=== PATIENT | female | born 1950 | race Caucasian/White ===

== ENCOUNTER 2020-08-07 15:24 | Outpatient (REF) | payer MEDICARE, SELFPAY ==
[2020-08-07 17:24] LABS: CDIFF Ag Negative (Negative)
[2020-08-07 17:25] LABS: CDIFF Internal ctrl Dots and bkg OK (V); CDiff Toxin Negative (Negative)
[2020-08-07 18:49] LABS: Leukocytes Stool Qualitative NEGATIVE (NEGATIVE)
== END 2020-08-07 15:25 | disposition home or self-care (01) ==
LOC: HO.LNP 15:24
PROVIDERS: Visit Provider Internal Medicine
DX: R19.7 Diarrhea, unspecified (principal)
CPT/HCPCS: 87045; 87046; 87324; 87449; 89055

== ENCOUNTER 2022-11-09 14:55 | Outpatient (AMB) | payer MEDICARE, SELFPAY ==
--- NOTE | 2022-11-09 14:59 | AM.OFFVISMDC ---
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 Accompanied by: Self / Same As Patient Allergies No Known Allergies Allergy (Verified 11/09/22 15:00) Medication List - Last Reconciled 11/09/22 by Yodit Neff MD atenolol 25 mg PO DAILY fenofibrate 160 mg PO DAILY 90 days ibuprofen (Advil) 400 mg PO Q8H [Left KNEE BRACE As directed] lorazepam 0.75 mg (1.5 x 0.5 mg) PO DAILY PRN 90 days weopqvzcojbn-ugjmyheo-doemlg 1 tab PO DAILY simvastatin 10 mg PO DAILY Do you need a note to return to daycare/school/sports/work: No HPI [facility] G0439 HPI Details 72-year-old obese female with hypertension impaired glucose tolerance knee osteoarthritis hypercholesterolemia generalized anxiety disorder and urge incontinence coming in for subsequent annual visit. Patient has refused colonoscopy due for mammogram and bone density [facility] Medical History (Updated 11/09/22 @ 15:48 by Yodit Neff MD) Hypercholesterolemia Hypertension Knee osteoarthritis Obesity Surgical History History of appendectomy History of breast lump/mass excision History of laparoscopic cholecystectomy History of umbilical hernia repair Family History Father Stomach cancer Mother No problems noted. Social History (Updated 11/07/21 @ 12:55 by Yodit Neff MD) Housing: House Alcohol intake: never Patient Tobacco Use Status: Former Tobacco user Tobacco use type: Cigarette Years Smoked: quit 1979 e-Cigarette/Vaping Use: Never Used Second Hand Smoke Exposure: No Current occupational status: retired Cognitive needs: No Hearing needs: No Vision needs: Yes Questionnaire Medicare Wellness Checkup [age] What gender do you identify with?: female During the past 4 weeks, how much have you been bothered by emotional problems such as feeling anxious, depressed, irritable, sad or downhearted, and blue?: not at all During the past 4 weeks, has your physical & emotional health limited your social activities with family, friends, neighbors, or groups?: not at all During the past 4 weeks, how much bodily pain have you generally had?: mild pain (knee pain) During the past 4 weeks, was someone available to help you if you needed & wanted help?: yes, as much as I wanted During the past 4 weeks, what was the hardest physical activity you could do for at least 2 minutes?: very heavy Can you get to places out of walking distance without help? (For eg., can you travel alone on buses, taxis or drive your car?): Yes Can you go shopping for groceries or clothes without someone's help?: Yes Can you prepare your own meals?: Yes Can you do your housework without help?: Yes Because of any health problems, do you need the help of another person with your personal care needs such as eating, bathing, dressing or getting around the house?: No Can you handle your own money without help?: Yes During the past 4 weeks, how would you rate your health in general?: excellent During the past 4 weeks how have things been going for you?: very well; could hardly better Are you having difficulties driving your car?: no Do you always fasten your seat belt when you are in a car?: yes, usually During past 4 weeks, have you been bothered by the following: never: Falling or dizzy when standing up, Sexual problems?, Trouble eating well?, Teeth or denture problems?, Problems using the telephone? and Tiredness or fatigue? Have you fallen 2 or more times in the past year?: No Are you afraid of falling?: Yes Are you a smoker?: no During the past 4 weeks, how many drinks of wine, beer, or other alcoholic beverages did you have?: no alcohol at all Do you exercise for about 20 minutes 3 or more times a week?: yes, some of the time Have you been given information to help with the following?: yes: Hazards in your house that might hurt you? and yes: Keeping track of your medications? How often do you have trouble taking medicines the way you have been told to take them?: I always take medicine as prescribed How confident are you that you can control & manage most of your health problems?: very confident What is your race?: White PHQ-9 Over the last 2 weeks, how often have you been bothered by any of the following problems? 1. Little interest or pleasure in doing things: not at all 2. Feeling down, depressed, or hopeless: not at all 3. Trouble falling or staying asleep, or sleeping too much: not at all 4. Feeling tired or having little energy: not at all 5. Poor appetite or overeating: not at all 6. Feeling bad about yourself - or that you are a failure or have let yourself or your family down: not at all 7. Trouble concentrating on things, such as reading the newspaper or watching television: not at all 8. Moving or speaking so slowly that other people could have noticed. Or the opposite - being so fidgety or restless that you have been moving around a lot more than usual: not at all 9. Thoughts that you would be better off or of hurting yourself in some way: not at all Total score: 0 Depression Screening Interpretation: Negative Source: Developed by Drs. Regis Holliday, Cristela Velásquez, Solomon Villalobos and colleagues, with an educational jung from [employer]. PHQ-2/PHQ-9 PHQ-2 Over the last 2 weeks, how often have you been bothered by any of the following problems? 1. Little interest or pleasure in doing things: not at all 2. Feeling down, depressed, or hopeless: not at all Total score: 0 If score is 3 or greater, continue 3. Trouble falling or staying asleep, or sleeping too much: not at all 4. Feeling tired or having little energy: not at all 5. Poor appetite or overeating: not at all 6. Feeling bad about yourself - or that you are a failure or have let yourself or your family down: not at all 7. Trouble concentrating on things, such as reading the newspaper or watching television: not at all 8. Moving or speaking so slowly that other people could have noticed. Or the opposite - being so fidgety or restless that you have been moving around a lot more than usual: not at all 9. Thoughts that you would be better off or of hurting yourself in some way: not at all Total score: 0 0-4 None-Minimal, 5-9 Mild, 10-14 Moderate, 15-19 Moderately Severe, 20-27 Severe Source: Developed by Drs. Regis Holliday, Cristela Velásquez, Solomon Villalobos and colleagues, with an educational jung from [employer]. Thrive Questionnaire Date Thrive assessed: 11/09/22 I am a: Patient What is your living situation today?: I have a steady place to live Within the past 12 months, did the food you bought not last and you didn't have the money to get more?: Never true Within the past 12 months, did you worry whether your food would run out before you got money to buy more?: Never true Do you have trouble paying for medicines?: No Do you have trouble getting transportation to medical appointments?: No Do you have trouble paying your heating and electricity bill?: No Do you have trouble taking care of your child, family member or friend?: No Do you have trouble with day-to-day activities such as bathing, preparing meals, shopping, managing finances, etc.?: No Are you currently unemployed and looking for a job?: No Are you interested in more education?: No Please select the resources that you would like help with: None Currently or been in a relationship where the following occur: no concerns reported JACKIE-7 AMB Questionnaire JACKIE-7 Date JACKIE - 7 assessed: 11/09/22 Feeling nervous, anxious, or on edge: 0 = Not at all Not being able to stop or control worryin = Not at all Worrying too much about different things: 0 = Not at all Trouble relaxin = Not at all Being so restless that it is hard to sit still: 0 = Not at all Becoming easily annoyed or irritable: 0 = Not at all Feeling afraid as if something awful might happen: 0 = Not at all Total JACKIE-7 score (0-4 normal; 5-9 mild; 10-14 moderate; 15-21 severe): 0 Source: Developed by Drs. Regis Holliday, Cristela Velásquez, Solomon Villalobos and colleagues, with an educational jung from [employer]. Review of Systems Const Denies poor appetite and Denies weakness Eyes Denies no additional complaints ENT Reports Normal hearing present Card Denies chest pain, Denies syncope, Denies rapid heart rate and Denies dyspnea Resp Denies cough and Denies dyspnea GI Denies change in stool character, Reports constipation, Denies diarrhea, Denies nausea and Denies vomiting Denies urinary frequency, Denies difficulty voiding and Denies dysuria Neuro Reports Normal hearing present, Denies confusion, Denies syncope and Denies weakness Psych Denies confusion Physical Exam Vital Signs: Last Vital Signs Pulse 62 11/09/22 15:00 BP 130/62 11/09/22 15:00 Pulse Ox 98 11/09/22 15:00 Oxygen Delivery Method Room Air 11/09/22 15:00 BMI result Body Mass Index 43.6 Const General: alert and awake; No confusion Orientation/consciousness: No confusion HEENT Head: Yes normocephalic Ears: external ears normal and TM's normal bilaterally Face and sinus: Yes normal facial exam Mouth: moist mucous membranes Throat: Yes tonsils normal Eyes Conjunctivae: conjunctivae normal Pupils: Equal, round and reactive pupils present and Pupil accommodation reflex normal Direct Ophthalmoscopy: normal light reflex Neck Neck: No lymphadenopathy Thyroid: Thyroid normal Chest Chest palpation & inspection: normal inspection of the chest Resp Effort & Inspection: normal respiratory effort and no audible wheezes Auscultation: clear to auscultation bilaterally, no crackles, no wheezes and lung sounds not diminished Cardio Rate: regular rate Rhythm: regular rhythm Peripheral pulses: radial pulses present and dorsalis pedis present GI Palpation (GI): no masses Auscultation: normal bowel sounds and normoactive bowel sounds Rectal Exam - Female: deferred Skin General skin exam: no rashes or lesions noted Rashes: no rashes Neuro General: deep tendon reflexes 2+ bilaterally and No confusion Cranial nerves: Yes Equal, round and reactive pupils present, Yes Midline tongue present, Yes Normal hearing present and Yes Ability to bilaterally elevate shoulders present Cognition (Neuro): normal cognition Gait exam (Neuro): Normal gait present Motor exam (neuro): 5/5 motor strength present throughout Deep tendon reflexes (DTR's): Right brachioradialis reflex intensity grade: 2+, Left brachioradialis reflex intensity grade: 2+, Right patellar reflex intensity grade: 2+ and Left patellar reflex intensity grade: 2+ Extrem General: No edema Assessment & Plan Assessment & Plan (1) Medicare annual wellness visit, subsequent: Code(s): Z00.00 - Encounter for general adult medical examination without abnormal findings (2) Hypertension: Code(s): I10 - Essential (primary) hypertension Plan: Continue with blood pressure medication. Decrease salt intake and exercise patient on atenolol 25 mg once a day (3) Hypercholesterolemia: Code(s): E78.00 - Pure hypercholesterolemia, unspecified Plan: Avoid fried foods, chicken skin, eggs, butter margarine, pastries and meat. Be it pork or beef they have a lot of cholesterol LDL goal of less than 130 and triglyceride of less than 150 patient is on simvastatin 10 mg once a day and fenofibrate (4) Obesity: Code(s): E66.9 - Obesity, unspecified Plan: Diet and exercise (5) Impaired glucose tolerance: Code(s): R73.02 - Impaired glucose tolerance (oral) Plan: Decrease the amount of carbohydrate intake, pasta, bread, rice and potatoes are all sugar and that is aside from all the sweet stuff, remember that fruits are good but they are Sweet also. (6) Generalized anxiety disorder: Comment: Decline any referral for counseling Code(s): F41.1 - Generalized anxiety disorder Plan: Continue with medication and counseling (7) Colon cancer screening: Code(s): Z12.11 - Encounter for screening for malignant neoplasm of colon Orders: Orders Hemoglobin A1c Today R73.02 - Impaired glucose tolerance (oral) Comprehensive Met. Panel Today R73.02 - Impaired glucose tolerance (oral) Lipid Panel Today E78.00 - Pure hypercholesterolemia, unspecified Thyroid Stimulating Hormone Today E78.00 - Pure hypercholesterolemia, unspecified Free T4 (Free Thyroxine) Today E78.00 - Pure hypercholesterolemia, unspecified Complete Blood Count Auto Diff Today E78.00 - Pure hypercholesterolemia, unspecified Vitamin B12 and Folate Today E78.00 - Pure hypercholesterolemia, unspecified Vitamin D 25-OH Total Today E78.00 - Pure hypercholesterolemia, unspecified Referrals Cologuard Test Z12.11 - Encounter for screening for malignant neoplasm of colon Medications: New [QUAD CANE] As directed 1 ea 0RF M17.10 - Unilateral primary osteoarthritis, unspecified knee Refilled fenofibrate 160 mg PO DAILY 90 days 90 tabs 3RF E78.00 - Pure hypercholesterolemia, unspecified Quality Reporting (2019) Depression/Bipolar (159/160/161/177) PHQ-9: Total score: 0 Coding Level of Care Code Medicare Subsequent (G0439) Diagnoses Medicare annual wellness visit, subsequent Z00.00 Hypertension I10 Hypercholesterolemia E78.00 Obesity E66.9 Impaired glucose tolerance R73.02 Generalized anxiety disorder F41.1 Colon cancer screening Z12.11
[2022-11-09 15:00] VITALS: BP 130/62; PULSE 62; O2SAT 98; BMI 43.6
== END 2022-11-09 15:55 | disposition home or self-care (01) ==
PROVIDERS: Visit Provider Internal Medicine
DX: Z00.00 Encounter for general adult medical examination without abnormal findings (principal); I10 Essential (primary) hypertension; E66.9 Obesity, unspecified; Z68.41 Body mass index [BMI] 40.0-44.9, adult; E78.00 Pure hypercholesterolemia, unspecified; R73.02 Impaired glucose tolerance (oral); F41.1 Generalized anxiety disorder; Z12.11 Encounter for screening for malignant neoplasm of colon
CPT/HCPCS: G0439

== ENCOUNTER 2023-02-10 12:13 | Outpatient (REF) | payer MEDICARE, SELFPAY | END 2023-02-10 12:14 | disposition home or self-care (01) | LOC: HO.HOSX 12:13 | PROVIDERS: Visit Provider Orthopaedic Surgery | DX: Z13.89 Encounter for screening for other disorder (principal) ==

== ENCOUNTER 2023-02-11 07:52 | Outpatient (REF) | payer MEDICARE, SELFPAY ==
--- NOTE | ~2023-02-11 | XR_ITS ---
EXAMINATION: XR KNEE, RIGHT CLINICAL INFORMATION: Pain. COMPARISON: None available. TECHNIQUE: AP, lateral and sunrise views of the right knee are submitted. FINDINGS: Bony alignment and mineralization are normal. There is marked asymmetric narrowing medial joint space compartment. The lateral and patellofemoral joint space compartments are well-maintained. There is tricompartment peripheral osteophyte formation. No fracture, dislocation or significant joint effusion is seen. There is no significant varus or valgus configuration. There is no foreign body. There are atherosclerotic calcifications. XR/XR knee RT 3V IMPRESSION: 1. There is tricompartment osteoarthritic change of the right knee, most pronounced of the medial joint space compartment, where it is severe. 2. No fracture, dislocation or significant joint effusion is seen.
== END 2023-02-11 07:53 | disposition home or self-care (01) ==
LOC: HO.HOSX 07:52
PROVIDERS: Visit Provider Orthopaedic Surgery
DX: M17.11 Unilateral primary osteoarthritis, right knee (principal); Z79.899 Other long term (current) drug therapy
CPT/HCPCS: 20610; 73562; 99202; J3301

== ENCOUNTER 2023-02-11 08:51 | Outpatient (AMB) | payer MEDICARE, SELFPAY ==
--- NOTE | 2023-02-11 09:07 | A.OFFVIS_ITS ---
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 She describes her pain as sharp and severe in nature, 01/26. Her pain has gotten worse over the last few years in spite of continued non operative treatments. She has had injections in the past which gave her only temporary relief. She states that her right knee will give out several times per day. She does walk with a cane. She has tried Tylenol and anti- inflammatory medicines which gave her minimal relief. She has also done physical therapy for 12 weeks over the last 6 months which aggravated her pain. Allergies No Known Allergies Allergy (Verified 02/11/23 09:10) Medication List - Last Reconciled 02/11/23 by Joni Weir MD atenolol 25 mg PO DAILY fenofibrate 160 mg PO DAILY 90 days ibuprofen (Advil) 400 mg PO Q8H [Left KNEE BRACE As directed] lorazepam 0.75 mg (1.5 x 0.5 mg) PO DAILY PRN 90 days gzubyvvxgaau-jnykbscg-iqpafq 1 tab PO DAILY [QUAD CANE As directed] simvastatin 10 mg PO DAILY PFSH Medical History (Updated 02/11/23 @ 10:06 by Joni Weir MD) Knee osteoarthritis Obesity Hypercholesterolemia Hypertension Surgical History History of appendectomy History of breast lump/mass excision History of laparoscopic cholecystectomy History of umbilical hernia repair Family History Father Stomach cancer Mother No problems noted. Social History (Updated 02/11/23 @ 09:10 by SARAH Damon) Housing: House Alcohol intake: never Patient Tobacco Use Status: Former Tobacco user Tobacco use type: Cigarette Years Smoked: quit 1979 e-Cigarette/Vaping Use: Never Used Second Hand Smoke Exposure: No Current occupational status: retired Current occupation: rt hand Cognitive needs: No Hearing needs: No Vision needs: Yes Physical Exam Vital Signs: BMI result Body Mass Index 43.5 Const Other: Well-nourished well-developed very friendly female awake alert and oriented x3 in no acute distress Extrem Other: Bilateral lower extremity examination shows good capillary refill, no skin lesions noted, normal sensation light touch Right knee examination shows a minimal effusion, palpable crepitus with range of motion, pain with range of motion, range of motion from -3 degrees to 115 degrees, no instability Office Procedures Joint Injection/Drain Joint Injection/Drain Primary Site: right knee Prep: site was prepped using aseptic technique Injected: 40 mg of, Kenalog and 1% plain lidocaine Procedure: The patient tolerated the procedure well Coding - Large joint Procedure code (CPT) selection complete Results Reviewed Results Reviewed: 02/11/23 09:42 Lidocaine HCl 2 % MPF [Xylocaine 2 % MPF] 5 ml .ROUTE .STK-MED ONE Triamcinolone Acetonide [Kenalog-40] 40 mg .ROUTE .STK-MED ONE X-rays of the patient's right knee show severe joint space narrowing with grade 4 eotf-bn-ensl arthritis, subchondral sclerosis, osteophyte formation, no acute bony abnormalities Assessment & Plan Assessment & Plan (1) Arthritis of right knee: Code(s): M17.11 - Unilateral primary osteoarthritis, right knee Plan: Mrs. Bartlett presents with progressively worsening right knee pain due to degenerative joint disease. I had a lengthy discussion with the patient regarding the treatment options. The risks and benefits of a cortisone injection were discussed at length with the patient. The patient wished to proceed. She tolerated the injection well. She was also fitted with a knee brace to help with her symptoms of instability. I do feel that the knee brace is a medical necessity to help prevent falls. I will see the patient back in 3 months time for repeat clinical examination. If she fails continued non operative treatments we will further discuss the risks and benefits of right total knee replacement surgery. Feel free to call me at any time should questions regarding her orthopedic management arise. Thank you very much for asking me to see this very friendly patient. I spent 22 minutes in reviewing the patient's records and imaging studies, seeing the patient and documenting in the medical record. Orders: Orders AMB Joint Injection/Aspiration Today M17.11 - Unilateral primary osteoarthritis, right knee XR knee RT 3V Today M25.561 - Pain in right knee Coding Level of Care Code New Pt Level 2 (80548) Diagnoses Arthritis of right knee M17.11 CPT Codes Coding - Large joint: 30259 - Large joint ([id number])
[2023-02-11 09:08] VITALS: BMI 43.5
== END 2023-02-11 10:06 | disposition home or self-care (01) ==
PROVIDERS: PCP Internal Medicine; Visit Provider Orthopaedic Surgery
DX: M17.11 Unilateral primary osteoarthritis, right knee (principal)
CPT/HCPCS: 20610; 99204

== ENCOUNTER 2023-05-12 10:27 | Outpatient (AMB) | payer MEDICARE, SELFPAY ==
--- NOTE | 2023-05-12 10:28 | A.OFFPC_ITS ---
Intake Visit Reasons: anxiety, cholesterol/[phone] Allergies No Known Allergies Allergy (Verified 02/11/23 09:10) Medication List - Last Reconciled 05/12/23 by Yodit Neff MD atenolol 25 mg PO DAILY fenofibrate 160 mg PO DAILY 90 days ibuprofen (Advil) 400 mg PO Q8H [Left KNEE BRACE As directed] lorazepam 0.75 mg (1.5 x 0.5 mg) PO DAILY PRN 90 days jgrxyugzfhwh-esktlqna-xeutgy 1 tab PO DAILY [QUAD CANE As directed] simvastatin 10 mg PO DAILY Tobacco use date assessed: 05/12/23 Fall risk assessment: No Falls in past year Last assessed Fall Risk: 05/12/23 Dental Screening Dental Screen Date: 05/12/23 Did you have a dental visit in the last 12 months?: Yes Did you have a dental problem in the last 6 months where you did not have access to dental care?: No Was dental information given to patient?: Patient has dentist HPI anxiety, cholesterol/[phone] HPI Details 73-year-old obese female with hypertensi on hypercholesterolemia impaired glucose tolerance and generalized anxiety disorder last seen in October 2022. Patient declined colonoscopy mammogram is due bone density is up-to-date. Review of the notes has seen Orthopedics for the. right knee pain patient to had an injection done 02/11/2023 fitted with a knee brace. R knee replacement 07/26/2023. Dr. Weir will get shot next week. [facility] Medical History (Updated 02/11/23 @ 10:06 by Joni Weir MD) Knee osteoarthritis Obesity Hypercholesterolemia Hypertension Surgical History History of appendectomy History of breast lump/mass excision History of laparoscopic cholecystectomy History of umbilical hernia repair Family History (Updated 05/12/23 @ 10:29 by Shellie Vogt CMA) Father Stomach cancer Mother No problems noted. Social History (Updated 02/11/23 @ 09:10 by Ade Darby [facility]) Housing: House Alcohol intake: never Patient Tobacco Use Status: Former Tobacco user Tobacco use type: Cigarette Years Smoked: quit 1979 e-Cigarette/Vaping Use: Never Used Second Hand Smoke Exposure: No Current occupational status: retired Current occupation: rt hand Cognitive needs: No Hearing needs: No Vision needs: Yes Questionnaire PHQ-9 Over the last 2 weeks, how often have you been bothered by any of the following problems? 1. Little interest or pleasure in doing things: not at all 2. Feeling down, depressed, or hopeless: not at all 3. Trouble falling or staying asleep, or sleeping too much: not at all 4. Feeling tired or having little energy: not at all 5. Poor appetite or overeating: not at all 6. Feeling bad about yourself - or that you are a failure or have let yourself or your family down: not at all 7. Trouble concentrating on things, such as reading the newspaper or watching television: not at all 8. Moving or speaking so slowly that other people could have noticed. Or the opposite - being so fidgety or restless that you have been moving around a lot more than usual: not at all 9. Thoughts that you would be better off or of hurting yourself in some wa y: not at all Total score: 0 Depression Screening Interpretation: Negative Depression Screening Done: Yes Source: Developed by Drs. Regis Holliday, Cristela Velásquez, Solomon Villalobos and colleagues, with an educational jung from [employer]. Thrive Questionnaire Date Thrive assessed: 05/12/23 I am a: Patient What is your living situation today?: I have a steady place to live Within the past 12 months, did the food you bought not last and you didn't have the money to get more?: Never true Within the past 12 months, did you worry whether your food would run out before you got money to buy more?: Never true Do you have trouble paying for medicines?: No Do you have trouble getting transportation to medical appointments?: No Do you have trouble paying your heating and electricity bill?: No Do you have trouble taking care of your child, family member or friend?: No Do you have trouble with day-to-day activities such as bathing, preparing meals, shopping, managing finances, etc.?: No Are you currently unemployed and looking for a job?: No Are you interested in more education?: No Please select the resources that you would like help with: None Currently or been in a relationship where the following occur: no concerns reported THRIVE Score: 0 AUDIT C Alcohol Use Questionnaire (AUDIT-C) 1. How often do you have a drink containing alcohol?: Never 3. How often do you have six or more drinks on one occasion?: Never Total Score: 0 JACKIE-7 AMB Questionnaire JACKIE-7 Date JACKIE - 7 assessed: 05/12/23 Feeling nervous, anxious, or on edge: 0 = Not at all Not being able to stop or control worryin = Not at all Worrying too much about different things: 0 = Not at all Trouble relaxin = Not at all Being so restless that it is hard to sit still: 0 = Not at all Becoming easily annoyed or irritable: 0 = Not at all Feeling afraid as if something awful might happen: 0 = Not at all Total JACKIE-7 score (0-4 normal; 5-9 mild; 10-14 moderate; 15-21 severe): 0 Source: Developed by Drs. Regis Holliday, Cristela Velásquez, Solomon Villalobos and colleagues, with an educational jung from [employer]. Physical exam (Primary Care) Tobacco/Smoking Status: Tobacco use Status Tobacco use date assessed 05/12/23 05/12/23 10:29 Patient Tobacco Use Status Former Tobacco user 05/12/23 10:29 Tobacco use type Cigarette 05/12/23 10:29 e-Cigarette/Vaping Use Never Used 05/12/23 10:29 PHQ-9: PHQ-9 Score PHQ-9: Total score 0 05/12/23 10:29 Depression Screening Interpretation: Negative Thrive Assessment: Date of Thrive Assessment Date Thrive assessed 05/12/23 05/12/23 10:29 Currently or been in a relationship where the following occur: no concerns reported Telehealth Telehealth Location of provider rendering services: practice address Location of patient: address on file Patient Identification confirmed using: Name, : Yes Telehealth method: voice only (Android ) Patient verbally consented to treatment: Yes Patient verbally consented to billing insurance company: Yes Patient informed of any privacy concerns related to visit: Yes Minutes spent on Phone/Video with Pt.: 25 Assessment and Plan Assessment & Plan (1) Arthritis of right knee: Code(s): M17.11 - Unilateral primary osteoarthritis, right knee Plan: January 2023 seen Orthopedics had injections done (2) Hypertension: Code(s): I10 - Essential (primary) hypertension Plan: Continue with blood pressure medication. Decrease salt intake and exercise presently on atenolol 25 mg once a day (3) Hypercholesterolemia: Code(s): E78.00 - Pure hypercholesterolemia, unspecified Plan: Avoid fried foods, chicken skin, eggs, butter margarine, pastries and meat. Be it pork or beef they have a lot of cholesterol LDL goal of less than 130 and triglyceride of less than 150 patient on fenofibrate 160 mg once a day and simvastatin 10 mg once a day. Will need blood work (4) Obesity: Code(s): E66.9 - Obesity, unspecified Plan: Diet and exercise (5) Impaired glucose tolerance: Code(s): R73.02 - Impaired glucose tolerance (oral) Plan: Decrease the amount of carbohydrate intake, pasta, bread, rice and potatoes are all sugar and that is aside from all the sweet stuff, remember that fruits are good but they are Sweet also. (6) Generalized anxiety disorder: Comment: Decline any referral for counseling Code(s): F41.1 - Generalized anxiety disorder Plan: Continue with medication as needed. Coding Level of Care Code Tele Est Pt Level 4 (92822) Diagnoses Arthritis of right knee M17.11 Hypertension I10 Hypercholesterolemia E78.00 Obesity E66.9 Impaired glucose tolerance R73.02 Generalized anxiety disorder F41.1
== END 2023-05-12 12:03 | disposition home or self-care (01) ==
LOC: HO.HMGH 10:27
PROVIDERS: PCP Internal Medicine; Visit Provider Internal Medicine
DX: E78.00 Pure hypercholesterolemia, unspecified (principal); F41.1 Generalized anxiety disorder; M17.11 Unilateral primary osteoarthritis, right knee; I10 Essential (primary) hypertension; R73.02 Impaired glucose tolerance (oral)
CPT/HCPCS: 99443

== ENCOUNTER 2023-05-18 09:22 | Outpatient (AMB) | payer MEDICARE, SELFPAY ==
[2023-05-18 09:24] VITALS: BMI 43.5
--- NOTE | 2023-05-18 09:24 | MHC.OFFVIS ---
Intake Vital Signs 05/18/23 09:24 Height 5 ft 2 in Weight 238 lb BMI 43.5 Intake Visit Reasons: Bilateral knee pain Intake Note: Therese is a 73 year old female who presents with complaints of progressively worsening bilateral knee pains. The patient has had cortisone injections given into both of her knees. She has gotten relief from the left knee injections. At her last visit she was given a cortisone injection into her right knee which gave her minimal relief. The patient describes her pains as sharp and severe in nature. The patient has difficulty walking even short distances because of her pains. At this point her right knee pain is interfering with her activities of daily living and her ability to sleep well through the night. The patient is tentatively scheduled for right total knee replacement surgery in July. Allergies No Known Allergies Allergy (Verified 05/18/23 09:29) Medication List - Last Reconciled 05/18/23 by Joni Weir MD atenolol 25 mg PO DAILY fenofibrate 160 mg PO DAILY 90 days ibuprofen (Advil) 400 mg PO Q8H [Left KNEE BRACE As directed] lorazepam 0.75 mg (1.5 x 0.5 mg) PO DAILY PRN 90 days xylymmbwjafq-qorjgopd-puthev 1 tab PO DAILY [QUAD CANE As directed] simvastatin 10 mg PO DAILY PFSH Medical History Knee osteoarthritis Obesity Hypercholesterolemia Hypertension Surgical History History of breast lump/mass excision History of laparoscopic cholecystectomy History of umbilical hernia repair History of appendectomy Family History Father Stomach cancer Mother No problems noted. Social History Housing: House Alcohol intake: never Patient Tobacco Use Status: Former Tobacco user Tobacco use type: Cigarette Years Smoked: quit 1979 e-Cigarette/Vaping Use: Never Used Second Hand Smoke Exposure: No Current occupational status: retired Current occupation: rt hand Cognitive needs: No Hearing needs: No Vision needs: Yes Physical Exam Vital Signs: BMI result Body Mass Index 43.5 Const Other: Well-nourished well-developed very friendly female awake alert and oriented x3 in no acute distress Extrem Other: Bilateral lower extremity examination shows good capillary refill, no skin lesions noted, normal sensation light touch Bilateral knee examination shows minimal effusions, palpable crepitus with range of motion, pain with range of motion, range from -3 degrees to 115 degrees, no instability Office Procedures Joint Injection/Drain Joint Injection/Drain Primary Site: left knee Prep: site was prepped using aseptic technique Injected: 40 mg of, DepoMedrol and 1% plain lidocaine Procedure: The patient tolerated the procedure well Coding - Large joint Procedure code (CPT) selection complete Assessment & Plan Assessment & Plan (1) Arthritis of left knee: Code(s): M17.12 - Unilateral primary osteoarthritis, left knee (2) Arthritis of right knee: Code(s): M17.11 - Unilateral primary osteoarthritis, right knee (3) Pain in both knees: Code(s): M25.561 - Pain in right knee; M25.562 - Pain in left knee Plan Ms. Bartlett presents with bilateral knee pains due to degenerative joint disease. I had a lengthy discussion with the patient regarding the treatment options. The risks and benefits of a left knee cortisone injection were discussed at length with the patient. The patient wished to proceed. She tolerated the injection well. At this point the patient has failed continued non operative treatments for her right knee arthritis. The risks and benefits of right total knee replacement surgery were discussed at length with the patient. The patient wishes to proceed with surgery. She is scheduled to undergo surgery in July. I will see her back 1 week prior to her surgery to answer any final questions that she might have. Feel free to call me at any time should questions regarding her orthopedic management arise. I spent 22 minutes in reviewing the patient's records and imaging studies, seeing the patient and documenting in the medical record. Orders: Orders AMB Joint Injection/Aspiration Today M17.12 - Unilateral primary osteoarthritis, left knee Coding Level of Care Code Est Pt Level 2 (26136) Diagnoses Arthritis of left knee M17.12 Arthritis of right knee M17.11 Pain in both knees M25.561; M25.562 CPT Codes Coding - Large joint: 93193 - Large joint ([id number])
== END 2023-05-18 09:48 | disposition home or self-care (01) ==
PROVIDERS: PCP Internal Medicine; Visit Provider Orthopaedic Surgery
DX: M17.0 Bilateral primary osteoarthritis of knee (principal)
CPT/HCPCS: 20610; 99213

== ENCOUNTER → 2023-05-18 09:22 | Outpatient (BNVA) | payer MEDICARE, SELFPAY | PROVIDERS: PCP Internal Medicine; Visit Provider Orthopaedic Surgery | DX: M17.0 Bilateral primary osteoarthritis of knee (principal) | CPT/HCPCS: 20610; 99212; J1020 ==

== ENCOUNTER 2023-06-23 11:22 | Outpatient (AMB) | payer MEDICARE, SELFPAY ==
[2023-06-23 11:23] VITALS: BP 142/80; PULSE 85; O2SAT 95; BMI 44.1
--- NOTE | 2023-06-23 11:23 | MHC.PC.OV ---
Vital Signs 06/23/23 11:23 Height 5 ft 2 in Weight 241 lb BMI 44.1 BP 142/80 H Blood Pressure Location Lt brachial Position Sitting Pulse 85 Pulse Source Pulse Oximeter Pulse Oximetry (%) 95 Oxygen Delivery Method Room Air Intake Visit Reasons: RT TKA with Dr. Weir on 07/26/23 Allergies No Known Allergies Allergy (Verified 06/23/23 11:23) Medication List - Last Reconciled 06/23/23 by Yodit Neff MD atenolol 25 mg PO DAILY fenofibrate 160 mg PO DAILY 90 days ibuprofen (Advil) 400 mg PO Q8H [Left KNEE BRACE As directed] lorazepam 0.75 mg (1.5 x 0.5 mg) PO DAILY PRN 90 days jmzcyowmjjlh-igdlkpmp-axjghj 1 tab PO DAILY [QUAD CANE As directed] simvastatin 10 mg PO DAILY Tobacco use date assessed: 05/12/23 Fall risk assessment: No Falls in past year Last assessed Fall Risk: 06/23/23 Dental Screening Dental Screen Date: 06/23/23 Did you have a dental visit in the last 12 months?: Yes Did you have a dental problem in the last 6 months where you did not have access to dental care?: No Was dental information given to patient?: Patient has dentist HPI RT TKA with Dr. Weir on 07/26/23 HPI Details 73-year-old morbidly obese female with hypertension hypercholesterolemia impaired glucose tolerance generalized anxiety disorder last seen in April 2023. Patient has declined colonoscopy, mammogram is up-to-date bone density is up-to-date March 2022. The patient comes in for preoperative evaluation for a right total knee arthroplasty July 2023. [facility] Medical History (Updated 06/23/23 @ 11:35 by Yodit Neff MD) Right knee pain Colon cancer screening Frequency of micturition Obesity Hypercholesterolemia Hypertension Surgical History History of breast lump/mass excision History of laparoscopic cholecystectomy History of umbilical hernia repair History of appendectomy Family History Father Stomach cancer Mother No problems noted. Social History (Updated 06/23/23 @ 11:46 by Yodit Neff MD) Housing: House Alcohol intake: never Comment: glass of wine once Q 2 months Patient Tobacco Use Status: Former Tobacco user Tobacco use type: Cigarette Years Smoked: quit 1979 e-Cigarette/Vaping Use: Never Used Second Hand Smoke Exposure: No Current occupational status: retired Current occupation: rt hand Cognitive needs: No Hearing needs: No Vision needs: Yes Questionnaire PHQ-9 Over the last 2 weeks, how often have you been bothered by any of the following problems? 1. Little interest or pleasure in doing things: not at all 2. Feeling down, depressed, or hopeless: not at all 3. Trouble falling or staying asleep, or sleeping too much: not at all 4. Feeling tired or having little energy: not at all 5. Poor appetite or overeating: not at all 6. Feeling bad about yourself - or that you are a failure or have let yourself or your family down: not at all 7. Trouble concentrating on things, such as reading the newspaper or watching television: not at all 8. Moving or speaking so slowly that other people could have noticed. Or the opposite - being so fidgety or restless that you have been moving around a lot more than usual: not at all 9. Thoughts that you would be better off or of hurting yourself in some way: not at all Total score: 0 Depression Screening Interpretation: Negative Depression Screening Done: Yes Source: Developed by Drs. Regis Holliday, Cristela Velásquez, Solomon Villalobos and colleagues, with an educational jung from [employer]. Thrive Questionnaire Date Thrive assessed: 05/12/23 AUDIT C Alcohol Use Questionnaire (AUDIT-C) 1. How often do you have a drink containing alcohol?: Never 3. How often do you have six or more drinks on one occasion?: Never Total Score: 0 JACKIE-7 AMB Questionnaire JACKIE-7 Date JACKIE - 7 assessed: 05/12/23 Source: Developed by Drs. Regis Holliday, Cristela Velásquez, Solomon Villalobos and colleagues, with an educational jung from [employer]. Review of Systems Const Denies poor appetite and Denies weakness Eyes Denies no additional complaints ENT Reports Normal hearing present, Denies dizziness, Denies nasal congestion, Denies tinnitus and Denies sore throat Card Denies chest pain, Denies syncope, Denies rapid heart rate and Denies dyspnea Resp Denies cough and Denies dyspnea GI Denies change in stool character, Reports constipation, Denies diarrhea, Denies nausea and Denies vomiting Denies urinary frequency, Denies difficulty voiding and Denies dysuria Neuro Reports Normal hearing present, Denies confusion, Denies dizziness, Denies syncope and Denies weakness Psych Denies confusion Physical exam (Primary Care) Vital Signs: Last Vital Signs Pulse 85 06/23/23 11:23 BP 142/80 H 06/23/23 11:23 Pulse Ox 95 06/23/23 11:23 Oxygen Delivery Method Room Air 06/23/23 11:23 BMI result Body Mass Index 44.1 Tobacco/Smoking Status: Tobacco use Status Tobacco use date assessed 05/12/23 06/23/23 11:24 Patient Tobacco Use Status Former Tobacco user 06/23/23 11:24 Tobacco use type Cigarette 06/23/23 11:24 e-Cigarette/Vaping Use Never Used 06/23/23 11:24 PHQ-9: PHQ-9 Score PHQ-9: Total score 0 06/23/23 11:33 Depression Screening Interpretation: Negative Thrive Assessment: Date of Thrive Assessment Date Thrive assessed 05/12/23 06/23/23 11:24 Const General: No confusion Orientation/consciousness: No confusion Eyes Conjunctivae: conjunctivae normal Resp Auscultation: clear to auscultation bilaterally Cardio Rate: regular rate Rhythm: regular rhythm GI Inspection: Yes normal to inspection Neuro General: No confusion Cranial nerves: Yes Normal hearing present Extrem General: Yes normal to inspection and No edema Assessment and Plan Assessment & Plan (1) Preop exam for internal medicine: Code(s): Z01.818 - Encounter for other preprocedural examination Plan: Patient's blood work was done in [facility] today and awaiting results. EKG requested. Patient belongs to the intermediate risk group due to the age above 70. Await for the results. Discussed about aspirin and anti-inflammatories to hold 1 week before the procedure to prevent bleeding. Stressed importance of taking the blood pressure medication even on the day of the procedure. Advised to keep well hydrated (2) Arthritis of right knee: Code(s): M17.11 - Unilateral primary osteoarthritis, right knee Plan: Planned right total knee arthroplasty in 07/26/2023 (3) Hypertension: Code(s): I10 - Essential (primary) hypertension Plan: Continue with blood pressure medication. Decrease salt intake and exercise presently on atenolol 25 mg once a day (4) Hypercholesterolemia: Code(s): E78.00 - Pure hypercholesterolemia, unspecified Plan: Avoid fried foods, chicken skin, eggs, butter margarine, pastries and meat. Be it pork or beef they have a lot of cholesterol LDL goal of less than 130 and triglyceride of less than 150 (5) Obesity: Code(s): E66.9 - Obesity, unspecified Plan: Diet and exercise (6) Generalized anxiety disorder: Comment: Decline any referral for counseling Code(s): F41.1 - Generalized anxiety disorder Plan: Continue with lorazepam as needed Orders: Orders ECG 12 lead EKG Today Z01.818 - Encounter for other preprocedural examination Medications: Refilled lorazepam 0.75 mg (1.5 x 0.5 mg) PO DAILY PRN 135 tabs 0RF anxiety 90 days F41.9 - Anxiety disorder, unspecified Coding Level of Care Code Est Pt Level 4 (77207) Diagnoses Preop exam for internal medicine Z01.818 Arthritis of right knee M17.11 Hypertension I10 Hypercholesterolemia E78.00 Obesity E66.9 Generalized anxiety disorder F41.1
== END 2023-06-23 11:58 | disposition home or self-care (01) ==
PROVIDERS: PCP Internal Medicine; Visit Provider Internal Medicine
DX: I10 Essential (primary) hypertension (principal); Z01.818 Encounter for other preprocedural examination; Z68.41 Body mass index [BMI] 40.0-44.9, adult; E66.9 Obesity, unspecified; M17.11 Unilateral primary osteoarthritis, right knee; E78.00 Pure hypercholesterolemia, unspecified; F41.1 Generalized anxiety disorder
CPT/HCPCS: 99214

== ENCOUNTER → 2023-06-25 10:24 | Outpatient (REF) | payer MEDICARE, SELFPAY ==
--- NOTE | 2023-06-25 10:35 | ECG_ITS ---
Test Reason : preop Blood Pressure : / mmHG Vent. Rate : 078 BPM Atrial Rate : 078 BPM P-R Int : 150 ms QRS Dur : 076 ms QT Int : 358 ms P-R-T Axes : 073 043 024 degrees QTc Int : 408 ms Normal sinus rhythm with sinus arrhythmia Normal ECG When compared with ECG of 19-MAY-2014 13:09, No significant change was found Referred By: Yodit Neff Electronically Signed By:José Miguel Kohler
== END ==
LOC: HO.CARD 10:24
PROVIDERS: PCP Internal Medicine; Visit Provider Internal Medicine
DX: Z01.818 Encounter for other preprocedural examination (principal)
CPT/HCPCS: 93005

== ENCOUNTER → 2023-06-25 10:35 | Outpatient (BNV) | payer MEDICARE, SELFPAY | PROVIDERS: PCP Internal Medicine; Visit Provider Internal Medicine Cardiovascular Disease | DX: I49.8 Other specified cardiac arrhythmias (principal); Z01.810 Encounter for preprocedural cardiovascular examination | CPT/HCPCS: 93010 ==

== ENCOUNTER → 2023-06-29 10:06 | Outpatient (BNVA) | payer MEDICARE, SELFPAY | PROVIDERS: PCP Internal Medicine; Visit Provider Orthopaedic Surgery ==

== ENCOUNTER → 2023-06-29 10:06 | Outpatient (BNVA) | payer MEDICARE, SELFPAY | PROVIDERS: PCP Internal Medicine; Visit Provider Orthopaedic Surgery ==

== ENCOUNTER 2023-07-21 10:05 | Outpatient (AMB) | payer MEDICARE, SELFPAY ==
[2023-07-21 10:24] VITALS: BMI 44.1
--- NOTE | 2023-07-21 10:24 | MHC.OFFVIS ---
Intake Vital Signs 07/21/23 10:24 Height 5 ft 2 in Weight 241 lb BMI 44.1 Intake Visit Reasons: Preop RT TKA 07/26/23 Intake Note: Ms. Bartlett presents with complaints of progressively worsening bilateral knee pains, right greater than left. She describes her right knee pain as sharp and severe in nature, 10 of 10. Her pain has gotten worse over the last few years in spite of continued non operative treatments. Has taken Tylenol and anti-inflammatory medicines which gave her minimal relief. She has also done physical therapy exercises which aggravated her pain. She has had multiple injections in the past which gave her minimal relief. The patient has difficulty walking even short distances because of her pain. At this point her right knee pain is interfering with her activities of daily living and her ability to sleep well through the night. Allergies No Known Allergies Allergy (Verified 07/21/23 10:29) [facility] Medical History Right knee pain Colon cancer screening Frequency of micturition Obesity Hypercholesterolemia Hypertension Surgical History Hx of lumpectomy History of breast lump/mass excision History of laparoscopic cholecystectomy History of umbilical hernia repair History of appendectomy Family History Father Stomach cancer Mother No problems noted. Social History Housing: House Are you a primary healthcare network pricing consultant to a significant other at home: No Do you presently have visiting nurse or other home services: No Alcohol intake: never Comment: glass of wine once Q 2 months Patient Tobacco Use Status: Former Tobacco user Tobacco use type: Cigarette Years Smoked: quit 1979 e-Cigarette/Vaping Use: Never Used Second Hand Smoke Exposure: No Current occupational status: retired Current occupation: rt hand Cognitive needs: No Hearing needs: No Vision needs: Yes Physical Exam Vital Signs: BMI result Body Mass Index 44.1 Const Other: Well-nourished well-developed very friendly female awake alert and oriented x3 in no acute distress Extrem Other: Bilateral lower extremity examination shows good capillary refill, no skin lesions noted, normal sensation light touch Right knee examination shows a minimal effusion, palpable crepitus with range of motion, pain with range of motion, range of motion from -3 degrees to 115 degrees, no instability Results Reviewed Results Reviewed: X-rays of the patient's right knee show end-stage degenerative joint disease with grade 4 tzxw-lc-[id number] arthritis, subchondral sclerosis, osteophyte formation, no acute bony abnormalities Assessment & Plan Assessment & Plan (1) Arthritis of right knee: Code(s): M17.11 - Unilateral primary osteoarthritis, right knee Plan Mrs. Bartlett presents with progressively worsening right knee pain due to end-stage degenerative joint disease. I had a lengthy discussion with the patient regarding the treatment options. At this point she has failed continued non operative treatments. The risks and benefits of right total knee replacement surgery were discussed at length with the patient. The patient wishes to proceed with surgery. medical and health services manager will be consulted following her surgery for home physical therapy and nursing. The patient will follow-up as instructed. Feel free to call me at any time should questions regarding her orthopedic management arise. I spent 22 minutes in reviewing the patient's records and imaging studies, seeing the patient and documenting in the medical record. Coding Level of Care Code Est Pt Level 2 (50310) Diagnoses Arthritis of right knee M17.11
== END 2023-07-21 10:44 | disposition home or self-care (01) ==
PROVIDERS: PCP Internal Medicine; Visit Provider Orthopaedic Surgery
DX: M17.11 Unilateral primary osteoarthritis, right knee (principal)
CPT/HCPCS: 99024

== ENCOUNTER → 2023-07-21 10:05 | Outpatient (BNVA) | payer MEDICARE, SELFPAY | PROVIDERS: PCP Internal Medicine; Visit Provider Orthopaedic Surgery | DX: M17.11 Unilateral primary osteoarthritis, right knee (principal) | CPT/HCPCS: 99212 ==

== ENCOUNTER 2023-07-26 05:55 | Inpatient (IN) | payer MEDICARE, SELFPAY ==
[2023-07-16 12:18] VITALS: BP 174/81; PULSE 89; RESP 18; O2SAT 96; BMI 45.9
--- NOTE | 2023-07-16 12:40 | P.CONAN_ITS ---
Documented by User: Nasrin Thakkar NP 07/23/23 08:54 HPI - Anesthesia Eval Consult details Narrative: 73yo F for Right Knee Replacement Total, 07/26/23 Medically cleared No recent illness No CP/SOB with minimal activity r/t knee pain PMFSH Active Problems Active Problems: All Active Problems (Updated 06/23/23 @ 11:35 by Yodit Neff MD) Preop exam for internal medicine (Acute) Arthritis of left knee (Acute) Arthritis of right knee (Acute) Medicare annual wellness visit, subsequent (Acute) Ulnar neuropathy at elbow of left upper extremity (Acute) Urge incontinence (Acute) Age-related osteoporosis without current pathological fracture (Acute) Medicare annual wellness visit, initial (Acute) Generalized anxiety disorder (Acute) Impaired glucose tolerance (Acute) Diarrhea (Acute) Colonoscopy refused (Acute) Knee osteoarthritis (Acute) Obesity (Acute) Hypercholesterolemia (Acute) Hypertension (Acute) Past Medical History Medical History Right knee pain Colon cancer screening Frequency of micturition Obesity Hypercholesterolemia Hypertension Family History Family History Father Stomach cancer Mother No problems noted. Family history of problems with anesthesia: No Surgical History Surgical History Hx of lumpectomy History of breast lump/mass excision History of laparoscopic cholecystectomy History of umbilical hernia repair History of appendectomy History of Problems with Anesthesia: Yes (PONV - good effect with scop patch) Social History Social History Housing: House Are you a primary memory care program director to a significant other at home: No Do you presently have visiting nurse or other home services: No Alcohol intake: never Comment: glass of wine once Q 2 months Patient Tobacco Use Status: Former Tobacco user Tobacco use type: Cigarette Years Smoked: quit 1979 e-Cigarette/Vaping Use: Never Used Second Hand Smoke Exposure: No Use of substances other than those prescribed or required for medical reasons: No Have you been hit, kicked, punched, or otherwise hurt by someone within the past year? If so, by whom?: No Advance Directives: No Advance Directives Information Provided: No Advance Directives on File: No Recently lost weight without trying: No How much weight loss: 2-13 pounds Eating poorly because of decreased appetite: No Nutrition screen score: 1 Nutrition Risks: No Nutritional Risk Patient : No : No Poor oral hygiene: Yes (upper bridge, one bottom right molar broken) Current occupational status: retired Current occupation: rt hand Cognitive needs: No Hearing needs: No Vision needs: Yes Meds Allergies Allergy/AdvReac Type Severity Reaction Status Date / Time No Known Allergies Allergy Verified 07/21/23 10:29 Home Medications ?Medication ?Instructions ?Recorded ?Confirmed ?Last Taken ?Type lorazepam 0.5 mg tablet 0.75 mg PO DAILY anxiety 07/16/23 07/16/23 07/26/23 History iozzoadn-xjx-wxiwn acid 0.4 1 tab PO DAILY 07/16/23 07/16/23 07/25/23 History mg-lycopene 300 mcg-lutein 250 mcg tablet (Centrum Silver) simvastatin 10 mg tablet 10 mg PO BEDTIME 07/16/23 07/16/23 07/25/23 History Exam Height,Weight and Vital Signs: Height 5 ft 1 in Weight 110.223 kg Last Vital Signs Pulse 89 07/16/23 12:18 Resp 18 07/16/23 12:18 BP 174/81 H 07/16/23 12:18 Pulse Ox 96 07/16/23 12:18 O2 Del Method Room Air 07/16/23 12:18 Pertinent Lab Results Pertinent Lab Results: CBC and BMP 06/2023 from outside facility WNL Narrative Narrative: EKG 06/2023 Vent. Rate : 078 BPM Atrial Rate : 078 BPM P-R Int : 150 ms QRS Dur : 076 ms QT Int : 358 ms P-R-T Axes : 073 043 024 degrees QTc Int : 408 ms Normal sinus rhythm with sinus arrhythmia Normal ECG When compared with ECG of 19-MAY-2014 13:09, No significant change was found Airway Mallampati Class: II TM Dist: >3cm Neck ROM: Full Partial: Upper Loose/Missing/Broken Teeth: Yes (Broken bottom right molar) Heart: RRR Lungs: CTAB Assessment and Plan Assessment Anesthesia Assessment: Anesthesia Plan Discussed and PAT Visit Final Anesthetic Review Family History of Problems with Anesthesia: No History of Problems with Anesthesia: Yes (PONV - good effect with scop patch) Documented by User: Diana Lobo MD 07/26/23 07:51 PMFSH Past Medical History Medical History Right knee pain Colon cancer screening Frequency of micturition Obesity Hypercholesterolemia Hypertension Family History Family History Father Stomach cancer Mother No problems noted. Surgical History Surgical History Hx of lumpectomy History of breast lump/mass excision History of laparoscopic cholecystectomy History of umbilical hernia repair History of appendectomy Social History Social History Housing: House Are you a primary memory care program director to a significant other at home: No Do you presently have visiting nurse or other home services: No Alcohol intake: never Comment: glass of wine once Q 2 months Patient Tobacco Use Status: Former Tobacco user Tobacco use type: Cigarette Years Smoked: quit 1979 e-Cigarette/Vaping Use: Never Used Second Hand Smoke Exposure: No Use of substances other than those prescribed or required for medical reasons: No Have you been hit, kicked, punched, or otherwise hurt by someone within the past year? If so, by whom?: No Advance Directives: No Advance Directives Information Provided: No Advance Directives on File: No Recently lost weight without trying: No How much weight loss: 2-13 pounds Eating poorly because of decreased appetite: No Nutrition screen score: 1 Nutrition Risks: No Nutritional Risk Patient : No : No Poor oral hygiene: Yes (upper bridge, one bottom right molar broken) Current occupational status: retired Current occupation: rt hand Cognitive needs: No Hearing needs: No Vision needs: Yes Meds Allergies Allergy/AdvReac Type Severity Reaction Status Date / Time No Known Allergies Allergy Verified 07/21/23 10:29 Home Medications ?Medication ?Instructions ?Recorded ?Confirmed ?Last Taken ?Type lorazepam 0.5 mg tablet 0.75 mg PO DAILY anxiety 07/16/23 07/16/23 07/26/23 History eungyjvt-pri-agajo acid 0.4 1 tab PO DAILY 07/16/23 07/16/23 07/25/23 History mg-lycopene 300 mcg-lutein 250 mcg tablet (Centrum Silver) simvastatin 10 mg tablet 10 mg PO BEDTIME 07/16/23 07/16/23 07/25/23 History Assessment and Plan Assessment Anesthesia Assessment: Chart Reviewed Final Anesthetic Review ASA Class: III Final Preanesthetic Review: No Changes in Pt Med Stat, Meds/Allgs Chart Reviewed, Consent Obtained/Reviewed and Anes Risks/Benef Reviewed Patient Risk: Intermediate Procedure Risk: Intermediate Anesthetic Plan Anesthetic Plan: MAC:, Spinal and Regional Block Disposition: Standard PACU
[2023-07-16 14:30] LABS: MRSA Nasal PCR NEGATIVE (Negative); SA Nasal PCR NEGATIVE (Negative)
[2023-07-26] VITALS (11 sets, daily range): BP systolic 109–172; BP diastolic 65–92; PULSE 63–78; RESP 12–20; TEMP 36.1–36.6; O2SAT 94–98; BMI 48.0
--- OUTSIDE RECORDS SUMMARY | 2023-07-26 07:04 | XMS_ITS | Continuity of Care Document ---
Author Organization [facility] ter Address [address] [place] [id number]- Care Team Providers Care Physicist [place] Name Role Phone Po Yodit COSME Primary Care Physician Encounter [facility] Date(s): 06/08/19 - 06/08/[address] [address]- [facility] Attending Physician: Trinity Van NP
[2023-07-26] MEDS: Lactated Ringers 1,000 ML 100 ML IVCONT ×2 (07:08→12:36)
[2023-07-26] MEDS: vancomycin/NS 2,000 MG/500 ML PLAST..BAG 250 MG IV ×2 (07:08→18:29)
[2023-07-26] MEDS: Scopolamine 1.5 MG PATCH.TD.3 TRANSDERMA (07:08)
--- NOTE | 2023-07-26 07:42 | PC.NURSE ---
pt with ring, unable to remove despite lotion, string. anesthesia attempting with tape and lotion.
--- NOTE | 2023-07-26 08:07 | PC.NURSE ---
0740. Anesthesia DENTAL CREAM MAKER and charge histotechnologist partial cut ring then able to remove.
[2023-07-26] MEDS: HYDROmorphone HCl 0.5 MG/0.5 ML SYRINGE 0.25 MG IVPUSH ×2 (10:50→21:34)
--- NOTE | 2023-07-26 11:20 | P.BOP_ITS ---
Brief Operative Note Date of Service: 07/26/23 Pre-op diagnosis: Right knee degenerative joint disease Post-op diagnosis: same Procedure: Right total knee arthroplasty Implants: [employer] Triathlon cemented posterior stabilized total knee arthroplasty with a femoral component size 3 right, a tibial component size 2, polyethylene liner size 2 with 10 mm of thickness, a symmetric patellar component size 27 with 8 mm of thickness Surgeon: Joni Weir MD Anesthesia: regional and spinal Was an Clinical Research Administrator used for this Procedure?: Yes Clinical Research Administrator: Lesli Lujan Estimated blood loss (mL): 200 Pathology: other (Bony fragments from the right femur, tibia and patella) Condition: stable Disposition: PACU
--- NOTE | 2023-07-26 11:22 | P.OP_ITS ---
Operative Note Operative Note Date of Service: 07/26/23 Narrative: After the patient was identified as Tri Saleh and her right knee was initialed by myself the patient was brought to the holding area where a right leg nerve block was performed by the anesthesiologist in routine fashion. The patient was then brought to the operating room where conscious sedation and spinal anesthesia were performed by the anesthesiologist in routine fashion. Because of the patient's obesity she was given both IV Ancef and IV vancomycin preoperatively for infection prophylaxis. The patient's right lower extremity was prepped and draped in sterile fashion. A formal time-out was completed. The patient's right knee was placed onto a small bump to produce 30? of knee flexion during exposure. A #10 scalpel blade was used to make a midline incision extending 1 handbreadth proximal and distal to the patella. A second #10 scalpel blade was used to dissect the subcutaneous tissues down to the extensor mechanism. The subcutaneous flaps were maintained as thick as possible. A medial parapatellar arthrotomy was then performed using a #10 scalpel blade. The arthrotomy was begun just medial to the patellar tendon. The arthrotomy was continued 1 cm medial to the patella and then 5 mm into the medial aspect of the quadriceps tendon. The infrapatellar fat pad was partially excised to help with exposure. The soft tissue retinaculum was raised one-half of the way around the medial aspect of the proximal tibia. The patella was everted and the knee was flexed to 90?. There was no injury to the patellar tendon or its insertion onto the tibial tubercle. A drill bit was introduced into the distal aspect of the femur with a starting point 1 cm anterior to the origin of the posterior cruciate ligament. The intramedullary alignment lloyd was put into place. The distal alignment guide was set for a 5 degree valgus cut. The distal cutting block was put into place and was held with 4 pins. The intramedullary alignment lloyd was removed. Soft tissues were retracted in the distal femoral cut was made using a sagittal saw. The distal aspect of the femur measured to be a size 3 right component. Two drill holes were placed into the distal aspect of the femur marking 3? of external rotation. The distal cutting block was impacted into place and was held with 2 pins. Soft tissues were retracted and the 4 distal femoral cuts were made using a sagittal saw. Final notching and drilling of the distal aspect of the femur were performed in routine fashion. The trial femoral component was impacted into place. The knee was taken through a full range of motion. The patella tracked well. The patella was everted and the knee was flexed to 90?. The trial component was removed and our attention was directed to the proximal tibia. The medial and lateral menisci were removed using a #10 scalpel blade. A small rim of the medial meniscus was left intact to help prevent injury to the medial collateral ligament. A drill bit was then introduced into the proximal tibia with a st arting point midway from medial to lateral and one-third of the way posteriorly. The intramedullary alignment lloyd was put into place. The proximal tibial cutting guide was placed over the alignment lloyd in line with the 2nd toe. The guide was held in place using 3 pins. The intramedullary alignment lloyd was removed. Soft tissues were retracted and the proximal tibial cut was made using a sagittal saw. The proximal tibia measured to be a size 2 component. The tibial tray was put into place with a 10 mm liner. The femoral component was impacted into place. The knee was taken through a full range of motion. There was full flexion and full extension. There was no instability with varus or valgus stress testing with the knee in flexion or extension. The patella tracked well with no medially directed force. The rotation of the tibial tray was marked using electrocautery with the knee in extension. The patella was everted and the knee was flexed to 90?. All trial components were removed. The tibial tray was placed onto the proximal tibia in line with the electrocautery cornelio. The tray was held in place using 3 pins. Final broaching of the proximal tibia was performed in routine fashion. The trial liner and trial femoral component were put into place. The knee was brought into extension and our attention was directed to the patella. The patella measured 25 mm in thickness. The patellar resection guide was set for a 10 mm resection. Soft tissues were retracted and the patella cut was made using a sagittal saw. The remaining patella measured 15 mm in thickness. The undersurface of the patella was measured to be a size 27 symmetric component. Three drill holes were placed into the undersurface of the patella in routine fashion. The trial component was put into place. The knee was taken through a full range of motion. The patella tracked well. The patella was everted and the knee was flexed to 90?. All trial components were removed. The knee was once again brought into extension and placed onto a small bump. The knee joint was irrigated with copious amounts of normal saline solution via pulse lavage while the cement was mixed. The patella was everted and the knee was flexed to 90?. A small amount of cement was placed along the posterior aspects of the tibial and femoral components. Cement was then pressurized into the proximal tibia. The tibial component was impacted into place. Any excess cement was removed. The polyethylene liner was then impacted into place. Cement was then pressurized into the distal aspect of the femur. A small amount of cement was placed into the intramedullary canal to help reduce bleeding. The femoral component was impacted into place. Any excess cement was removed. The knee was then brought into extension. Cement was pressurized into the undersurface of the patella. The patellar component was put into place and was held with a patella clamp. Any excess cement was removed. Once the cement had hardened the patellar clamp was removed. The knee was taken through a full range of motion. There was full flexion and extension. There was no instability with varus or valgus stress testing with the knee in flexion or extension. The patella tracked well with no medially directed force. The knee joint was irrigated with copious amounts of normal saline solution via pulse lavage. Any significant bleeding vessels were coagulated. The patient's right knee was placed onto a small bump. The arthrotomy was closed with #2 Ethibond hnkiyr-tc-woihq interrupted suture as well as #1 Vicryl [id number] interrupted suture. The wound was once again irrigated. The subcutaneous tissues were closed with 0 Vicryl and 2-0 Vicryl interrupted sutures. The skin was closed with skin marie. Dry sterile dressing and Carlos bandages were placed over the patient's right knee. The patient was awake and alert. The patient was transferred to the recovery room in stable condition.
--- NOTE | 2023-07-26 12:05 | HO.PM.IMCN ---
History of Present Illness Data of Consult Service Date: 07/26/23 Requesting physician: Lesli Lujan Primary Care Provider: Yodit Neff MD [facility] Reason for consult: medical management 73 year old female with history of hld, htn, impaired glucose tolerance, who is morbidly obese with bmi >48 admitted to orthopedic surgery with consult placed to hospitalist service for medical management. She is reporting slight nausea but no vomiting. Has not urinated since this morning. No straight cath performed in ED. Will check bladder scan. Did have spinal block. Reprots the RLE is sore but no severe pain. No etoh use, illicit drug use, or cigarette smoking. Review of Systems Review of Systems: Yes all other systems are reviewed and are negative [facility] Medical History Right knee pain Colon cancer screening Frequency of micturition Obesity Hypercholesterolemia Hypertension Family History Father Stomach cancer Mother No problems noted. Surgical History Hx of lumpectomy History of breast lump/mass excision History of laparoscopic cholecystectomy History of umbilical hernia repair History of appendectomy Social History Housing: House Are you a primary client care representative to a significant other at home: No Do you presently have visiting nurse or other home services: No Alcohol intake: never Comment: glass of wine once Q 2 months Patient Tobacco Use Status: Former Tobacco user Tobacco use type: Cigarette Years Smoked: quit 1979 e-Cigarette/Vaping Use: Never Used Second Hand Smoke Exposure: No Use of substances other than those prescribed or required for medical reasons: No Have you been hit, kicked, punched, or otherwise hurt by someone within the past year? If so, by whom?: No Advance Directives: No Advance Directives Information Provided: No Advance Directives on File: No Recently lost weight without trying: No How much weight loss: 2-13 pounds Eating poorly because of decreased appetite: No Nutrition screen score: 1 Nutrition Risks: No Nutritional Risk Patient : No : No Poor oral hygiene: Yes (upper bridge, one bottom right molar broken) Current occupational status: retired Current occupation: rt hand Cognitive needs: No Hearing needs: No Vision needs: Yes Meds Allergies Allergy/AdvReac Type Severity Reaction Status Date / Time No Known Allergies Allergy Verified 07/21/23 10:29 Active Medications: Current Medications Acetaminophen (Acetaminophen 325 Mg Tablet) 650 mg PO Q6H PRN PRN Reason: Pain, Mild (Pain Scale 1-3) Aspirin (Aspirin 325 Mg Tablet) 325 mg PO BID [facility] Atenolol (Atenolol 25 Mg Tablet) 25 mg PO DAILY [facility]; Protocol Celecoxib (Celecoxib 200 Mg Capsule) 200 mg PO BID [facility] Docusate Sodium (Docusate Sodium 100 Mg Capsule) 100 mg PO BID [facility] Fenofibrate (Fenofibrate 160 Mg Tablet) 160 mg PO DAILY [facility] Gabapentin (Gabapentin 100 Mg Capsule) 100 mg PO BEDTIME [facility] Hydromorphone HCl (Hydromorphone Hcl 0.5 Mg/0.5 Ml Syringe) 0.25 mg IVPUSH Q4H PRN; Protocol PRN Reason: Pain, Severe (Pain Scale 7-10) Last Admin: 07/26/23 10:50 Dose: 0.25 mg Hydromorphone HCl (Hydromorphone Hcl 0.5 Mg/0.5 Ml Syringe) 0.5 mg IVPUSH Q4H PRN; Protocol PRN Reason: Pain, Severe (Pain Scale 7-10) Hydromorphone HCl (Hydromorphone Hcl 2 Mg Tablet) 2 mg PO Q3H PRN PRN Reason: Pain, Moderate(Pain Scale 4-6) Hydromorphone HCl (Hydromorphone Hcl 4 Mg Tablet) 4 mg PO Q3H PRN PRN Reason: Pain, Severe (Pain Scale 7-10) Hydromorphone HCl (Hydromorphone Hcl 2 Mg Tablet) 2 mg PO Q3H PRN PRN Reason: Pain, Severe (Pain Scale 7-10) Lactated Ringer's (Lr) 1,000 mls @ 100 mls/hr IVCONT .Q10H [facility] Cefazolin Sodium/Dextrose (Ancef) 2 gm in 50 mls @ 100 mls/hr IV Q8H [facility] Stop: 07/27/23 12:01 Vancomycin HCl (Vancomycin/Ns) 2,000 mg in 500 mls @ 250 mls/hr IV POSTOP ONE Stop: 07/26/23 20:59 Lorazepam (Lorazepam 0.5 Mg Tablet) 0.75 mg PO DAILY [facility] Methocarbamol (Methocarbamol 500 Mg Tablet) 500 mg PO TID [facility] Non-Formulary Medication (Simvastatin) 10 mg PO BEDTIME [facility] Ondansetron HCl (Ondansetron Hcl 4 Mg/2 Ml Vial) 4 mg IVPUSH Q8H PRN PRN Reason: Nausea and Vomiting Ondansetron HCl (Ondansetron Hcl 4 Mg/2 Ml Vial) 4 mg IVPUSH ONCE PRN PRN Reason: Nausea and Vomiting Stop: 07/26/23 13:52 Pharmacy Consult (Consult Rx Vancomycin Dosing) 1 each MISCELLANE DAILY PRN PRN Reason: Consult order Sodium Chloride (0.9 % Sodium Chloride Flush 3 Ml Syringe) 3 ml IVFLUSH QSHIFT [facility] Home Medications ?Medication ?Instructions ?Recorded ?Confirmed ?Last Taken ?Type lorazepam 0.5 mg tablet 0.75 mg PO DAILY anxiety 07/16/23 07/16/23 07/26/23 History pqalwoqt-ned-batib acid 0.4 1 tab PO DAILY 07/16/23 07/16/23 07/25/23 History mg-lycopene 300 mcg-lutein 250 mcg tablet (Centrum Silver) simvastatin 10 mg tablet 10 mg PO BEDTIME 07/16/23 07/16/23 07/25/23 History Physical Exam Vital Signs and Narrative: Vital Signs: Last Vital Signs Temp 98 F 07/26/23 10:36 Pulse 77 07/26/23 11:20 Resp 14 07/26/23 11:20 BP 141/68 H 07/26/23 11:20 Pulse Ox 94 07/26/23 11:20 O2 Del Method Nasal Cannula 07/26/23 11:20 O2 Flow Rate 2 07/26/23 11:20 BMI result Body Mass Index 48.0 Constitutional - Awake and Alert, No apparent distress Eyes - PERRLA, EOMI Cardiovascular - S1S2, RRR, No edema Respiratory - Normal lung expansion, Normal respiratory effort, No respiratory distress, CTA bilaterally Gastrointestinal - NT / ND; +BS; No rebound or guarding Extremities - no calf tenderness bilaterally, no swelling Skin - Warm/Dry Neurological - Alert & oriented x3, sensation in tact Psychological - Appropriate affect Assessment and Plan (1) Arthritis of right knee: Status: Acute Plan 73 year old female with history of hld, htn, impaired glucose tolerance, who is morbidly obese with bmi >48 admitted to orthopedic surgery with consult placed to hospitalist service for medical management. #OA R knee s/p TKA POD 0 -plan per ortho surgery #?urinary retention -no void since pre-op -bladder scan, straight cath if >500ml. RN to notify hospitalist #HTN -bp reasonably controlled -continue atenolol #HLD -continue fenofibrate #Morbid obesity with bmi >48 -encourage weight loss efforts Thank you for allowing me to participate in this consult. Signing off at this time. Please do not hesitate to call for further questions or for any acute medical issues.
--- NOTE | 2023-07-26 13:28 | PHA.MEDREC ---
Pharmacy Consult ? Medication Reconciliation Pharmacy has reviewed the medication reconciliation completed by nurse. Pharmacy spoke with patient to confirm.
--- NOTE | 2023-07-26 13:41 | PC.NURSE ---
Patient voided for 300mL of clear yellow urine in bedside commode.
[2023-07-26] MEDS: Fenofibrate 160 MG TABLET PO (13:48)
[2023-07-26] MEDS: ceFAZolin Sodium/Dextrose,Iso 2 GM/50 ML PIGGYBACK IV ×2 (15:29→22:57)
[2023-07-26] MEDS: methocarbamoL 500 MG TABLET PO (15:29)
[2023-07-26] MEDS: Aspirin 325 MG TABLET PO ×2 (18:12→21:18)
[2023-07-26] MEDS: Celecoxib 200 MG CAPSULE PO (21:18)
[2023-07-26] MEDS: Docusate Sodium 100 MG CAPSULE PO (21:18)
[2023-07-26] MEDS: Gabapentin 100 MG CAPSULE PO (21:19)
[2023-07-26] MEDS: Atorvastatin Calcium 10 MG TABLET PO (21:19)
[2023-07-27] MEDS: Lactated Ringers 1,000 ML 100 ML IVCONT (00:55)
[2023-07-27 03:33] VITALS: BP 138/63; PULSE 66; RESP 16; TEMP 36.4; O2SAT 96
[2023-07-27] MEDS: HYDROmorphone HCl 0.5 MG/0.5 ML SYRINGE 0.25 MG IVPUSH (03:58)
[2023-07-27] MEDS: LORazepam 0.5 MG TABLET 0.75 MG PO (05:16)
[2023-07-27 06:10] LABS: Basophils Percent Auto 0.2 % (0-2); Hematocrit 33.3 % (37.0-47.0); Hemoglobin 11.1 g/dl (12.0-16.0); Imm Gran Abs Auto 0.15 X10*3/uL (0.00-0.03); Imm Gran Pct Auto 0.8 % (0.0-0.4); Lymphocytes Absolute Auto 1.5 X10*3/uL (1.2-4.9); Lymphocytes Percent Auto 7.9 % (20-40); MANUAL DIFF FLAG SCAN; Mean Corpuscular HGB Conc 33.3 g/dl (31.0-35.0); Mean Corpuscular Hemoglobin 31.6 pg (27.0-33.0); Mean Corpuscular Volume 94.9 fL (80.0-98.0); Mean Platelet Volume 9.6 fL (9.4-12.3); Monocytes Absolute Auto 2.4 X10*3/uL (0.1-1.2); Monocytes Percent Auto 12.2 % (2-11); Neutrophils Absolute Auto 15.5 x10*3/uL (2.0-8.3); Neutrophils Percent Auto 78.9 % (45-73); Platelet Count 298 X10*3/uL (160-400); Red Blood Count 3.51 X10*6/uL (4.20-5.50); Red Cell Distribution Width 12.9 % (11.0-16.0); SCAN SMEAR FLAG 1; White Blood Count 19.6 X10*3/uL (4.8-10.8)
[2023-07-27] MEDS: ceFAZolin Sodium/Dextrose,Iso 2 GM/50 ML PIGGYBACK IV (06:18)
[2023-07-27 06:29] LABS: Anion Gap 10 (12-20); Blood Urea Nitrogen 18 mg/dL (9-16); Carbon Dioxide 23 mmol/L (22-29); Chloride 109 mmol/L (96-108); Creatinine Clr Calc Pharmacy 72.8; Estimated Glomerular Filt Rate > 60; Glucose Fasting 121 mg/dL (60-99); Potassium 4.4 mmol/L (3.3-5.1); Sodium 138 mmol/L (135-145)
[2023-07-27 06:38] LABS: SLIDE REVIEW VERIFIED
--- NOTE | 2023-07-27 07:36 | P.PNOP_ITS ---
Subjective Subjective Date of Service: 07/27/23 Interval history: POD 1 s/p RT TKA no overnight events resting in bed with mild discomfort Physical Exam Vital Signs: Vital Signs: Last Vital Signs Temp 97.6 F 07/27/23 03:33 Pulse 66 07/27/23 03:33 Resp 16 07/27/23 03:33 BP 138/63 07/27/23 03:33 Pulse Ox 96 07/27/23 03:33 O2 Del Method Room Air 07/27/23 03:33 O2 Flow Rate 2 07/26/23 11:20 BMI result Body Mass Index 48.0 Const: General: cooperative, healthy appearing and no acute distress Resp: Effort & Inspection: normal respiratory effort and able to speak in complete sentences Cardio: Rate: regular rate Peripheral pulses: Peripheral pulses 2+ throughout GI: Palpation (GI): Soft to palpation Skin: General skin exam: no rashes or lesions noted Extrem: Other: bandage clean dry and intact. [place] intact. No erythema or joint effusion. Calf supple nontender. Neurovascularly intact. Procedures Date of Service Date of Service: 07/27/23 Progress Note: A&P Assessment and plan (1) Status post total right knee replacement: Status: Acute Assessment and Plan: * Continue pain mgmnt * Begin Aspirin for dvt ppx * begin PT for RT TKA * Dispo planning-Pending PT eval, pain mgmnt Time Spent With Patient Time: Total time managing care of this patient today ____ minutes. Quality Stroke Does the patient have a stroke diagnosis?: No VTE Prior VTE?: No VTE Risk Level:: Surgical - very high VTE Device Contraindication: N/A - Device Ordered VTE Drug Contraindication: N/A - Med Ordered
[2023-07-27 07:49] VITALS: BP 123/58; PULSE 54; RESP 18; TEMP 36.9; O2SAT 96
[2023-07-27] MEDS: Aspirin 325 MG TABLET PO ×2 (09:20→22:06)
[2023-07-27] MEDS: Celecoxib 200 MG CAPSULE PO ×2 (09:21→22:01)
[2023-07-27] MEDS: Fenofibrate 160 MG TABLET PO (09:21)
[2023-07-27] MEDS: atenoloL 25 MG TABLET PO (09:21)
[2023-07-27] MEDS: methocarbamoL 500 MG TABLET PO ×3 (09:21→22:01)
[2023-07-27] MEDS: Docusate Sodium 100 MG CAPSULE PO ×2 (09:21→22:00)
--- NOTE | 2023-07-27 09:40 | MHC.CM.PN ---
IMM DELIVERED PT LIVES WITH SP[facility], INDEPENDENT WITH MOBILITY. +HCP AT HOME, COPY REQUESTED. PCP AT [facility]. DP: HOME WITH FIRST CHOICE FOR P.T., [facility]. REFERRAL SENT. [facility] WILL TRANSPORT. CM WILL CONTINUE TO FOLLOW FOR ANY CHANGE TO DC PLAN/NEEDS.
[2023-07-27] MEDS: HYDROmorphone HCl 2 MG TABLET PO (14:00)
--- NOTE | 2023-07-27 14:06 | PM.DS ---
DS: Providers Provider Date of Service: 07/28/23 Date of admission: 07/26/23 05:55 Primary care physician: Yodit Neff MD Consults: 07/26/23 07:40 Consult to Hospitalist Routine Comment: Consulting Provider: Hospitalist Reason For Exam: Routine medical management DS: Diagnosis Discharge Diagnosis (1) Status post total right knee replacement: Status: Acute DS: Summary Hospital Course Hospital Course: The patient underwent a successful right total knee arthroplasty, they were transferred to PACU and then to the floor to recover. During their stay, their vitals were stable, afebrile at 97.7. Labs were unremarkable, H/H 11.1/33.3. POD 1 they were started on Aspirin 325mg po bid for DVT ppx, they also received Physical Therapy services twice a day. Prior to discharge, their dressing was clean dry and intact and the plan was to be discharged home with VNA services. Time Attestation Discharge Coordination Time (in mins): 30 Quality: Safe Use of Opioids Does Pt have an Active Cancer Diagnosis on the Problem List?: No Quality: Stroke Does the patient have a stroke diagnosis?: No Physical Exam Vital Signs: Vital Signs: Last Vital Signs Temp 98.4 F 07/27/23 07:49 Pulse 54 07/27/23 07:49 Resp 18 07/27/23 07:49 BP 123/58 L 07/27/23 07:49 Pulse Ox 96 07/27/23 07:49 O2 Del Method Room Air 07/27/23 07:49 O2 Flow Rate 2 07/26/23 11:20 BMI result Body Mass Index 48.0 Const: General: cooperative, healthy appearing and no acute distress Resp: Effort & Inspection: normal respiratory effort and able to speak in complete sentences Cardio: Rate: regular rate Peripheral pulses: Peripheral pulses 2+ throughout GI: Palpation (GI): Soft to palpation Skin: General skin exam: no rashes or lesions noted Extrem: Other: right knee bandage clean dry and intact. [place] intact. No erythema or joint effusion. Calf supple nontender. Neurovascularly intact. DS: Data Data Completed and Pending Completed studies during hospitalization [Text1]: Pending at discharge 07/26/23 08:52 Surgical [PTH] Routine Labs on day of discharge: Laboratory Results - last 24 hr 07/27/23 05:47 WBC 19.6 H RBC 3.51 L Hgb 11.1 L Hct 33.3 L MCV 94.9 MCH 31.6 MCHC 33.3 RDW 12.9 Plt Count 298 MPV 9.6 Immature Gran % (Auto) 0.8 H Neut % (Auto) 78.9 H Lymph % (Auto) 7.9 L [place] % (Auto) 12.2 H Eos % (Auto) 0.0 Baso % (Auto) 0.2 Lymph # (Auto) 1.5 [place] # (Auto) 2.4 H Eos # (Auto) 0.0 Baso # (Auto) 0.0 Abs Immat Gran (auto) 0.15 H Absolute Neuts (auto) 15.5 H Absolute Nucleated RBC 0.000 Nucleated RBC % (auto) 0.0 Smear Tech's Comments VERIFIED Sodium 138 Potassium 4.4 Chloride 109 H Carbon Dioxide 23 Anion Gap 10 L BUN 18 H Creatinine 0.80 Estim Creat Clear Calc 72.8 Estimated GFR > 60 Fasting Glucose 121 H Calcium 9.0 Discharge Plan Discharge Anticipated Discharge Date/Time: 07/28/23 15:00 Patient Disposition: Home Health Service Discharge Diagnosis: s/p RTKA Referrals: Lesli Lujan PA-C [Physician Chief Airline Radio Operator] - 08/12/23 12:30 pm Discharge Medications: New methocarbamol 500 mg Tablet 500 mg PO TID 7 Days Qty: 21 0RF celecoxib 200 mg Capsule 200 mg PO BID 30 Days Qty: 60 0RF acetaminophen 325 mg Tablet 650 mg PO Q6H PRN (Reason: Pain, Mild (Pain Scale 1-3)) 30 Days Qty: 240 0RF aspirin 325 mg Tablet 325 mg PO BID 42 Days Qty: 84 0RF docusate sodium 100 mg Capsule 100 mg PO BID 30 Days Qty: 60 0RF gabapentin 100 mg Capsule 100 mg PO BEDTIME 7 Days Qty: 7 0RF hydromorphone 4 mg Tablet 2 mg PO Q3H PRN (Reason: Pain, Severe (Pain Scale 7-10)) 7 Days Qty: 28 0RF Rx Instructions: Partial Fill upon patient request. Continued atenolol 25 mg tablet 25 mg PO DAILY Qty: 90 3RF (DME) walker Misc See Rx Instructions .ROUTE .MEDSUPPLY Qty: 1 0RF Rx Instructions: Folding front wheeled walker simvastatin 10 mg tablet 10 mg PO BEDTIME lorazepam 0.5 mg tablet 0.75 mg PO DAILY Centrum Silver 0.4 mg-300 mcg- 250 mcg Tablet 1 tab PO DAILY (DME) Left KNEE BRACE See Rx Instructions .Route .MEDSUPPLY Qty: 1 0RF Rx Instructions: As directed (DME) QUAD CANE See Rx Instructions .Route .MEDSUPPLY Qty: 1 0RF Rx Instructions: As directed fenofibrate 160 mg tablet 160 mg PO DAILY 90 Days Qty: 90 3RF Discharge Orders: Discharge Order (Routine); Ordered 07/28/23 Ordered By: Lesli Lujan Diet: Advance to usual diet Activity on Discharge: Use cane or walker Stand Alone Forms: Patient Portal Discharge page Print Language: Urdu Care Plan Goals: restore fxn to right knee Health Concerns: none Plan of Treatment: Physical Therapy for ROM 0-120, quad strength, gait training. Use walker for ambulation Limit stair climbing, No shower, No tub bath, No driving Continue anticoagulant x 6 weeks Keep Aquacel dressing clean, dry and intact. Follow up with orthopedics in 2 weeks Assessment: stable for d/c
--- NOTE | 2023-07-27 14:07 | P.F2F_ITS ---
Service Date Service Date: 07/27/23 Encounter Date of encounter: 07/28/23 Reasons for Services Signs and symptoms assessed: s/p RTKA Pt. is considered homebound due to recent surgery. Unable to drive, poor balance, poor gait mechanics. Reason for physical therapy: home safety and mobility, therapeutic exercises, restore joint function, gait/transfer training, assess need for DME and ADL training Homebound: Leaving the home is medically contraindicated at this time without the asist of a device and/or another person due th the listed conditions above and below. Reason homebound: unsteady gait / fall risk, leg weakness, pain with ambulation, pain with transfers, poor balance / fall risk and unable to drive Certification: Based on the above findings, I certify that this patient is confined to the home and needs intermittent correction care, physical therapy and/or speech therapy, or continues to need occupational therapy. The patient is under my care, and I have initiated the establishment of the plan of care. The patient will be followed by a physician who will periodically review the plan of care. Time Spent With Patient Time: Total time managing care of this patient today ____ minutes.
[2023-07-27] MEDS: 0.9 % Sodium Chloride Flush 3 ML SYRINGE IVFLUSH (15:33)
--- NOTE | 2023-07-27 15:36 | HO.POSTANES ---
Post Anesthesia Evaluation Post Anesthesia Evaluation Date of Service: 07/27/23 Vital Signs: Vital Signs Temp Pulse Resp BP Pulse Ox O2 Del Method 07/27/23 07:49 98.4 F 54 18 123/58 L 96 Room Air Anesthesia: Spinal and Nerve Block Mental Status: Awake Pain Control: Satisfactory Nausea/Vomiting: None Hydration: Adequate Anesthesia-Related Issues: No Anes. Related Issues
[2023-07-27 15:59] VITALS: BP 140/65; PULSE 64; RESP 20; TEMP 36.8; O2SAT 92
[2023-07-27 19:39] VITALS: BP 163/75; PULSE 70; RESP 18; TEMP 36.5; O2SAT 96
[2023-07-27 20:51] VITALS: BP 136/64
[2023-07-27] MEDS: Gabapentin 100 MG CAPSULE PO (22:01)
[2023-07-27] MEDS: Atorvastatin Calcium 10 MG TABLET PO (22:06)
[2023-07-28] MEDS: 0.9 % Sodium Chloride Flush 3 ML SYRINGE IVFLUSH ×2 (00:37→08:03)
[2023-07-28 03:25] VITALS: BP 144/63; PULSE 80; RESP 16; TEMP 36.2; O2SAT 96
[2023-07-28] MEDS: LORazepam 0.5 MG TABLET 0.75 MG PO (06:52)
--- NOTE | 2023-07-28 06:55 | PC.NURSE ---
NOTED SCHEDULED ATIVAN ADMINISTERED LATE; PATIENT WAS ASLEEP, WHEN AWAKENED PT WISHED TO WAIT LITTLE LONGER.
[2023-07-28 07:12] VITALS: BP 165/75; PULSE 72; RESP 18; TEMP 36.5; O2SAT 96
[2023-07-28 07:49] LABS: Anion Gap 12 (12-20); Blood Urea Nitrogen 17 mg/dL (9-16); Calcium 8.8 mg/dL (8.4-10.2); Carbon Dioxide 23 mmol/L (22-29); Chloride 110 mmol/L (96-108); Creatinine Clr Calc Pharmacy 85.6; Estimated Glomerular Filt Rate > 60; Glucose Fasting 111 mg/dL (60-99); Potassium 3.7 mmol/L (3.3-5.1); Sodium 141 mmol/L (135-145)
[2023-07-28] MEDS: Celecoxib 200 MG CAPSULE PO (08:01)
[2023-07-28] MEDS: Fenofibrate 160 MG TABLET PO (08:01)
[2023-07-28] MEDS: HYDROmorphone HCl 2 MG TABLET PO ×2 (08:01→12:01)
[2023-07-28] MEDS: methocarbamoL 500 MG TABLET PO (08:01)
[2023-07-28] MEDS: atenoloL 25 MG TABLET PO (08:02)
[2023-07-28] MEDS: Docusate Sodium 100 MG CAPSULE PO (08:02)
[2023-07-28] MEDS: Aspirin 325 MG TABLET PO (08:02)
--- NOTE | 2023-07-28 09:11 | P.PNOP_ITS ---
Subjective Subjective Date of Service: 07/28/23 Interval history: POD 2 s/p RT TKA no overnight events has been working with PT without concerns Physical Exam Vital Signs: Vital Signs: Last Vital Signs Temp 97.7 F 07/28/23 07:12 Pulse 72 07/28/23 07:12 Resp 18 07/28/23 07:12 BP 165/75 H 07/28/23 07:12 Pulse Ox 96 07/28/23 07:12 O2 Del Method Room Air 07/28/23 07:12 O2 Flow Rate 2 07/26/23 11:20 BMI result Body Mass Index 48.0 Const: General: cooperative, healthy appearing and no acute distress Resp: Effort & Inspection: normal respiratory effort and able to speak in complete sentences Cardio: Rate: regular rate Peripheral pulses: Peripheral pulses 2+ throughout GI: Palpation (GI): Soft to palpation Skin: General skin exam: no rashes or lesions noted Extrem: Other: bandage clean dry and intact. [place] intact. No erythema or joint effusion. Calf supple nontender. Neurovascularly intact. Procedures Date of Service Date of Service: 07/28/23 Progress Note: A&P Assessment and plan (1) Status post total right knee replacement: Status: Acute Assessment and Plan: * Continue pain mgmnt * Aspirin for dvt ppx * PT for RT TKA * Dispo planning-Pending PT clearance for home Time Spent With Patient Time: Total time managing care of this patient today ____ minutes. Quality Stroke Does the patient have a stroke diagnosis?: No VTE Prior VTE?: No VTE Risk Level:: Surgical - very high VTE Device Contraindication: N/A - Device Ordered VTE Drug Contraindication: N/A - Med Ordered
--- NOTE | 2023-07-28 10:31 | MHC.CM.PN ---
IMM 07/27/23 Patient is discharged to home with [facility]. She has arranged for her spouse to provide transportation home.
== END 2023-07-28 12:44 | disposition home health service (06) | DRG 470 ==
LOC: HO.SSSA 07:02 → HO.S3 10:40
PROVIDERS: Physician Assistant; Admitting Provider Orthopaedic Surgery; PCP Internal Medicine; Visit Provider Orthopaedic Surgery
PROC: 0SRC0J9 Replacement of Right Knee Joint with Synthetic Substitute, Cemented, Open Approach (ICD-10-PCS; CPT 27447; principal; 2023-07-26 07:30)
DX: M17.11 Unilateral primary osteoarthritis, right knee (principal); Z68.42 Body mass index [BMI] 45.0-49.9, adult; E78.5 Hyperlipidemia, unspecified; R33.9 Retention of urine, unspecified; I10 Essential (primary) hypertension; E66.01 Morbid (severe) obesity due to excess calories; G89.18 Other acute postprocedural pain; Z87.891 Personal history of nicotine dependence; Z79.899 Other long term (current) drug therapy
CPT/HCPCS: 36415; 80048; 85025; 86850; 86900; 86901; 87640; 87641; 88305; 88311; 97110; 97116; 97161; 97530; C1776; J0131; J0171; J0665; J0690; J1100; J1170; J2250; J2371; J2405; J2704; J3370; J7120

== ENCOUNTER → 2023-07-26 05:55 | Outpatient (BNV) | payer MEDICARE, SELFPAY | PROVIDERS: Admitting Provider Orthopaedic Surgery; PCP Internal Medicine; Visit Provider Orthopaedic Surgery | DX: Z96.651 Presence of right artificial knee joint (principal) | CPT/HCPCS: 27447; 99024 ==

== ENCOUNTER → 2023-07-26 05:55 | Outpatient (BNV) | payer MEDICARE, SELFPAY | PROVIDERS: Admitting Provider Orthopaedic Surgery; PCP Internal Medicine; Visit Provider Physician Assistant | DX: M17.11 Unilateral primary osteoarthritis, right knee (principal) | CPT/HCPCS: 99221 ==

== ENCOUNTER 2023-08-12 10:17 | Outpatient (AMB) | payer MEDICARE, SELFPAY ==
--- NOTE | 2023-08-12 10:33 | MHC.OFFVIS ---
Intake Visit Reasons: PO-RT TKA 07/26/23 Intake Note: Therese is a 73 year old patient who presents today for her post op appointment s/p right TKA 07/26/23 Patient reports she is doing well, however she is having a little dull pain. She reveals that she is having outpatient PT tomorrow in the morning. Allergies No Known Allergies Allergy (Verified 08/12/23 10:36) HPI HPI PO-RT TKA 07/26/23 DR: Details: 73-year-old female who presents in the office today 17 days status post a right total knee arthroplasty, which was performed on 07/26/[address] Weir. When in the office today the patient reports she is doing well. However, she is having a slight dull pain. Confirms participating in PT tomorrow in the morning. PFSH Medical History Right knee pain Colon cancer screening Frequency of micturition Obesity Hypercholesterolemia Hypertension Surgical History Hx of lumpectomy History of breast lump/mass excision History of laparoscopic cholecystectomy History of umbilical hernia repair History of appendectomy Family History Father Stomach cancer Mother No problems noted. Social History Household Members: Spouse Housing: House Are you a primary multi care technician to a significant other at home: No Do you presently have visiting nurse or other home services: No Alcohol intake: never Comment: glass of wine once Q 2 months Patient Tobacco Use Status: Former Tobacco user Tobacco use type: Cigarette Years Smoked: quit 1979 e-Cigarette/Vaping Use: Never Used Second Hand Smoke Exposure: No service: No Current occupational status: retired Current occupation: rt hand Cognitive needs: No Hearing needs: No Vision needs: Yes Review of Systems Const All systems reviewed & are unremarkable except as noted in HPI and below Physical Exam Const General: cooperative, healthy appearing and no acute distress Resp Effort & Inspection: normal respiratory effort and able to speak in complete sentences Cardio Rate: regular rate Peripheral pulses: Peripheral pulses 2+ throughout GI Palpation (GI): Soft to palpation Skin Lesions: no lesions Rashes: no rashes Extrem Other: Right knee: Incision site is clean, dry, and intact. [place] intact. No surrounding erythema or drainage. No signs of infection. ROM is 0-110. NVI. Assessment & Plan Assessment & Plan (1) Status post total right knee replacement: Onset Date: ~07/26/23 Comment: Dr. Weir Code(s): Z96.651 - Presence of right artificial knee joint Category: Surgical Plan Ms. Bartlett is a 73-year-old female who presents in the office today 17 days status post a right total knee arthroplasty, which was performed on 07/26/[address] Weir. When in the office today the patient reports she is doing well. However, she is having a slight dull pain. Confirms participating in PT tomorrow in the morning. Erin were removed and steri-stripes were applied. Shew ill being outpatient PT tomorrow. Follow up will be in [address] Weir, or sooner if needed. I sent a prescription for an antibiotic (Amoxicillin 2,000 mg PO once with 4 tabs to be taken by mouth 1 hour prior to dental procedure) prophylactically for possible dental work in the future. However, the patient was educated they should not have any major dental work for the first 3 months post op after the right total knee arthroplasty. X-rays of the right knee which were obtained while in the office today and were reviewed by me, Lesli Lujan PA-C, revealed intact orthopedic hardware with proper alignment. Current pain regiment: --Acetaminophen 650 mg PO Q6H PRN -Gabapentin 100 mg PO bedtime -Hydromorphone 2 mg PO Q3H PRN -Methocarbamol 500 mg PO TID Orders: Orders XR pelvis 1-2V Today M25.559 - Pain in unspecified hip XR knee RT 3V Today M25.569 - Pain in unspecified knee Medications: New amoxicillin 2,000 mg (4 x 500 mg) PO ONCE 4 tabs 0RF take 4 tabs by mouth 1 hour prior to dental ppx 1 day Patient Instructions: Scribed by Vielka Buckley medical instrument technician, for Lesli Lujan PA-C on 08/12/2023 at 10:21 am, EST. Coding Level of Care Code Global (81159) Diagnoses Status post total right knee replacement Z96.651
== END 2023-08-12 11:02 | disposition home or self-care (01) ==
PROVIDERS: PCP Internal Medicine; Visit Provider Physician Assistant
DX: Z96.651 Presence of right artificial knee joint (principal)
CPT/HCPCS: 99024

== ENCOUNTER 2023-08-12 10:25 | Outpatient (REF) | payer MEDICARE, SELFPAY ==
--- NOTE | ~2023-08-12 | XR_ITS ---
EXAMINATION: XR KNEE, RIGHT CLINICAL INFORMATION: Pain in unspecified knee. COMPARISON: 02/11/2023. TECHNIQUE: AP standing view of bilateral knees as well as sunrise and lateral views of the right knee. FINDINGS: RIGHT KNEE: Expected postsurgical changes status post interval right knee total arthroplasty with anterior marie, large joint effusion, soft tissue swelling and intact hardware. Alignment is appropriate. LEFT KNEE: Single frontal view of the left knee demonstrates severe degenerative changes in the medial compartment with [id number], subchondral sclerosis and remodeling. Moderate medial marginal and small lateral marginal osteophytes. XR/XR knee RT 3V IMPRESSION: 1. Expected postsurgical changes status post interval right knee total arthroplasty. Hardware appears intact. 2. Severe degenerative changes left knee.
== END 2023-08-12 10:26 | disposition home or self-care (01) ==
LOC: HO.HOSX 10:25
PROVIDERS: Visit Provider Physician Assistant
DX: Z96.651 Presence of right artificial knee joint (principal)
CPT/HCPCS: 73562; 99212

== ENCOUNTER 2023-09-02 10:36 | Outpatient (AMB) | payer MEDICARE, SELFPAY ==
--- NOTE | 2023-09-02 10:39 | MHC.OFFVIS ---
Intake Visit Reasons: 6WK PO: R TKA w/ 07/26/23 Intake Note: Therese is a 73 year old female who presents for her post operative appointment s/p right TKA 07/26/23 . The patient reports mild intermittent discomfort in her right knee. She continues to go to formal physical therapy at [facility] in [place]. She has no longer taking narcotics for her discomfort. Allergies No Known Allergies Allergy (Verified 09/02/23 10:45) Medication List - Last Reconciled 09/02/23 by Joni Weir MD acetaminophen 650 mg (2 x 325 mg) PO Q6H PRN 30 days amoxicillin 2,000 mg (4 x 500 mg) PO ONCE 1 day aspirin 325 mg PO BID 42 days atenolol 25 mg PO DAILY celecoxib 200 mg PO BID 30 days docusate sodium 100 mg PO BID 30 days fenofibrate 160 mg PO DAILY 90 days [Left KNEE BRACE As directed] lorazepam 0.75 mg PO DAILY rwrxbjvb-fjv-NZ-lycopen-lutein 0.4 mg-300 mcg- 250 mcg (Centrum Silver) 1 tab PO DAILY [QUAD CANE As directed] simvastatin 10 mg PO BEDTIME walker Folding front wheeled walker [facility] Medical History (Updated 09/03/23 @ 12:52 by Joni Weir MD) Right knee pain Arthritis of right knee Colon cancer screening Frequency of micturition Obesity Hypercholesterolemia Hypertension Surgical History Hx of right knee surgery (~07/26/23) Hx of lumpectomy History of breast lump/mass excision History of laparoscopic cholecystectomy History of umbilical hernia repair History of appendectomy Family History Father Stomach cancer Mother No problems noted. Social History Household Members: Spouse Housing: House Are you a primary home care and home health aides teacher to a significant other at home: No Do you presently have visiting nurse or other home services: No Alcohol intake: never Comment: glass of wine once Q 2 months Patient Tobacco Use Status: Former Tobacco user Tobacco use type: Cigarette Years Smoked: quit 1979 e-Cigarette/Vaping Use: Never Used Second Hand Smoke Exposure: No service: No Current occupational status: retired Current occupation: rt hand Cognitive needs: No Hearing needs: No Vision needs: Yes Physical Exam Extrem Other: Right knee examination shows that the surgical incision is well healed, no erythema, full active extension and flexion to 120 degrees, her patella tracks well Assessment & Plan Assessment & Plan (1) Right knee pain: Code(s): M25.561 - Pain in right knee Category: Medical Plan Ms. Bartlett continues to do very well after undergoing right total knee replacement surgery on 07/26/2023. She will continue going to formal physical therapy for now. She will gradually transition to a home exercise program. She does know to take antibiotics any dental work. She will contact me prior to her follow-up appointment in 6 weeks should any questions or concerns arise. Feel free to call me at any time should questions regarding her orthopedic management arise. Coding Level of Care Code Global (47719) Diagnoses Right knee pain M25.561
== END 2023-09-02 11:03 | disposition home or self-care (01) ==
PROVIDERS: PCP Internal Medicine; Visit Provider Orthopaedic Surgery
DX: M25.561 Pain in right knee (principal)
CPT/HCPCS: 99024

== ENCOUNTER → 2023-09-02 10:36 | Outpatient (BNVA) | payer MEDICARE, SELFPAY | PROVIDERS: PCP Internal Medicine; Visit Provider Orthopaedic Surgery | DX: Z47.1 Aftercare following joint replacement surgery (principal); M25.561 Pain in right knee; Z96.651 Presence of right artificial knee joint | CPT/HCPCS: 99212 ==

== ENCOUNTER 2023-09-30 11:00 | Outpatient (RCR) | payer MEDICARE, SELFPAY ==
--- NOTE | 2023-08-18 09:42 | MHC.PT.EP ---
[facility] [place] Office [place] Office [place] Office [address] Evelina Rene [address] [phone] F: [phone] F: [phone] F: [phone] F: [phone] Physical Therapy Plan of Care Date of Evaluation: 08/18/23 Date of Surgery: 07/26/2023 Diagnosis: R TKA Assessment: Patient is a 73 year old female presenting to PT s/p R TKA 07/26/2023. She presents today with impairments in pain, ROM, knee strength, hip strength, gait mechanics. Pt's current occupation is retired, with baseline physical activities including ambulating, stair negotiation, ADLs. Pt expresses occupational health professional goal of returning to PLOF, and is motivated to work towards this in PT. Clinical presentation today is most consistent with signs and sx associated with s/p R TKA 07/26/2023 and pt will benefit from skilled PT 2 week x 5 weeks to address the following problems and impairments noted upon evaluation: pain, ROM, knee strength, hip strength, gait mechanics. These problems limit the patient with the following functional activities: transfers, ambulating, stair negotiation. The prescribed treatment plan of care is medically necessary. Co-morbidities of HTN were identified and taken into considerations of plan of care. Pt was educated on HEP, role of PT, prognosis, POC. Frequency and Duration: The patient will be seen 2 x week x 5 weeks Short Term Goals: Pt will demonstrate improved R knee ROM to equal B in 3 weeks. Pt will demonstrate 5/5 knee MMT strength in 3 weeks. Pt will demonstrate hip MMT strength at least 4/5 in 3 weeks for improved lumbopelvic stability. Kennel Hand Goals: Pt will demonstrate improved LEFI score by 9 points in 5 weeks for improved functional mobility. Pt will demonstrate ability to negotiate stairs with step over step pattern in 5 weeks for improved access to her home. Pt will demonstrate ability to ambulate with no AD and good mechanics in 5 weeks for ability to access her community. Treatment Plan: Modalities to reduce pain, spasms and effusion. Manual therapy to restore motion and function. Therapeutic exercise to improve strength and flexibility. Neuromuscular re-education for posture and balance. Therapeutic activities to return to functional activities of daily living. Electronically signed by: Aracelis Chamorro, PT, DPT, ATC Please sign and return to therapist. Thank you for your referral.
--- NOTE | 2023-09-30 11:55 | MHC.PT.DC ---
[facility] [place] Office [place] Office [place] Office [address] Evelina Rene 140 [facility] [phone] F: [phone] F: [phone] F: [phone] F: [phone] Physical Therapy Discharge Report Diagnosis: R TKA Date of Surgery: 07/26/2023 Date of Evaluation: 08/18/23 Date of Discharge: 09/30/23 Treatments to Date: 10 Cancellations to Date: 3 No Shows to Date: 0 Discharge Status: Achieved Goals Improved Function Independent with HEP Discharge Summary: 09/30/2023: Pt has made improvements since start of care in terms of ROM and strength. She still has pain on and off but overall this is better. She still needs a lot of rest breaks due to endurance issues. At this time she appears to be most limited with her L knee and this has prevented her from weaning off the cane fully. In terms of the R knee I feel she is ready to d/c the cane however her L knee is so limited I recommend continuing to use it. At this time we have maximized benefits of skilled PT for her R knee and therefore she will be d/c. She is in agreement with plan and I encouraged her to continue with HEP to maximize/maintain strength gains and functional status. Electronically signed by: Aracelis Chamorro, PT, DPT, ATC Please sign and return to therapist. Thank you for your referral.
== END 2023-09-30 11:55 | disposition home or self-care (01) ==
LOC: HO.PTCHIC 11:00
PROVIDERS: PCP Internal Medicine; Visit Provider Physician Assistant
DX: Z96.651 Presence of right artificial knee joint (principal)
CPT/HCPCS: 97110; 97161; 97530

== ENCOUNTER 2023-10-13 12:19 | Outpatient (AMB) | payer MEDICARE, SELFPAY ==
--- NOTE | 2023-10-13 12:33 | A.OFFPC_ITS ---
Vital Signs 10/13/23 12:34 Height 5 ft 1 in Weight 222 lb 0.4 oz BMI 41.9 BP 152/80 H Blood Pressure Location Lt brachial Position Sitting Pulse 68 Pulse Source Pulse Oximeter Pulse Oximetry (%) 96 Oxygen Delivery Method Room Air Intake Visit Reasons: HTN, Cholesterol Allergies No Known Allergies Allergy (Verified 10/13/23 12:39) Medication List - Last Reconciled 10/13/23 by Yodit Neff MD acetaminophen 650 mg (2 x 325 mg) PO Q6H PRN 30 days amoxicillin 2,000 mg (4 x 500 mg) PO ONCE 1 day atenolol 25 mg PO DAILY fenofibrate 160 mg PO DAILY 90 days [Left KNEE BRACE As directed] lorazepam 0.75 mg PO DAILY iwndoedi-dzc-HT-lycopen-lutein 0.4 mg-300 mcg- 250 mcg (Centrum Silver) 1 tab PO DAILY [QUAD CANE As directed] simvastatin 10 mg PO BEDTIME walker Folding front wheeled walker Tobacco use date assessed: 05/12/23 Fall risk assessment: No Falls in past year Last assessed Fall Risk: 10/13/23 Dental Screening Dental Screen Date: 06/23/23 HPI HTN, Cholesterol HPI Details 73-year-old morbidly obese female with h ypertension, hypercholesterolemia generalized anxiety disorder last seen in 07/07/2023 for preoperative evaluation for right knee arthroplasty for 07/2023. Patient did have the surgery done and is undergoing physical therapy [facility] Medical History (Updated 10/13/23 @ 12:41 by Yodit Neff MD) Arthritis of left knee Preop exam for internal medicine Right knee pain Arthritis of right knee Colon cancer screening Frequency of micturition Obesity Hypercholesterolemia Hypertension Surgical History (Updated 10/13/23 @ 12:41 by Yodit Neff MD) Hx of right knee surgery (~07/26/23) Hx of lumpectomy History of breast lump/mass excision History of laparoscopic cholecystectomy History of umbilical hernia repair History of appendectomy Family History Father Stomach cancer Mother No problems noted. Social History Household Members: Spouse Housing: House Are you a primary managed care specialist to a significant other at home: No Do you presently have visiting nurse or other home services: No Alcohol intake: never Comment: glass of wine once Q 2 months Patient Tobacco Use Status: Former Tobacco user Tobacco use type: Cigarette Years Smoked: quit 1979 e-Cigarette/Vaping Use: Never Used Second Hand Smoke Exposure: No service: No Current occupational status: retired Current occupation: rt hand Cognitive needs: No Hearing needs: No Vision needs: Yes Questionnaire Thrive Questionnaire Date Thrive assessed: 07/27/23 AUDIT C Alcohol Use Questionnaire (AUDIT-C) 1. How often do you have a drink containing alcohol?: Never 3. How often do you have six or more drinks on one occasion?: Never Total Score: 0 JACKIE-7 AMB Questionnaire JACKIE-7 Date JACKIE - 7 assessed: 05/12/23 Source: Developed by Drs. Regis Holliday, Cristela Velásquez, Solomon Villalobos and colleagues, with an educational jung from [employer]. Physical exam (Primary Care) Vital Signs: Last Vital Signs Pulse 68 10/13/23 12:34 BP 152/80 H 10/13/23 12:34 Pulse Ox 96 10/13/23 12:34 Oxygen Delivery Method Room Air 10/13/23 12:34 BMI result Body Mass Index 41.9 Tobacco/Smoking Status: Tobacco use Status Tobacco use date assessed 05/12/23 10/13/23 12:39 Patient Tobacco Use Status Former Tobacco user 10/13/23 12:39 Tobacco use type Cigarette 10/13/23 12:39 e-Cigarette/Vaping Use Never Used 10/13/23 12:39 Thrive Assessment: Date of Thrive Assessment Date Thrive assessed 07/27/23 10/13/23 12:39 Const General: alert; No acute distress Eyes Conjunctivae: conjunctivae normal Resp Auscultation: clear to auscultation bilaterally Cardio Rate: regular rate Rhythm: regular rhythm GI Inspection: Yes normal to inspection Extrem General: Yes normal to inspection and No edema Assessment and Plan Assessment & Plan (1) Status post total right knee replacement: Onset Date: ~07/26/23 Comment: Dr. Weir 07/2023 Code(s): Z96.651 - Presence of right artificial knee joint Plan: Continue to follow-up with orthopedics and on formal physical therapy (2) Hypertension: Code(s): I10 - Essential (primary) hypertension Plan: Continue with blood pressure medication. Decrease salt intake and exercise presently on atenolol 25 mg once a day. BP high today and admits has not taken BP med today (3) Hypercholesterolemia: Code(s): E78.00 - Pure hypercholesterolemia, unspecified Plan: Avoid fried foods, chicken skin, eggs, butter margarine, pastries and meat. Be it pork or beef they have a lot of cholesterol LDL goal of less than 130 and t riglyceride less than 150 on simvastatin 10 mg once a day and fenofibrate 160 mg once a day (4) Obesity: Code(s): E66.9 - Obesity, unspecified Plan: Diet and exercise (5) Impaired glucose tolerance: Code(s): R73.02 - Impaired glucose tolerance (oral) Plan: Decrease the amount of carbohydrate intake, pasta, bread, rice and potatoes are all sugar and that is aside from all the sweet stuff, remember that fruits are good but they are Sweet also. (6) Generalized anxiety disorder: Comment: Decline any referral for counseling Code(s): F41.1 - Generalized anxiety disorder Plan: Continue with medication as needed Orders: Orders IRON PROFILE Today R73.02 - Impaired glucose tolerance (oral) Ferritin Today R73.02 - Impaired glucose tolerance (oral) Reticulocyte Count Today R73.02 - Impaired glucose tolerance (oral) Medications: New lorazepam 0.75 mg (1.5 x 0.5 mg) PO DAILY 135 tabs 0RF anxiety F41.1 - Generalized anxiety disorder Coding Level of Care Code Est Pt Level 4 (79324) Diagnoses Status post total right knee replacement Z96.651 Hypertension I10 Hypercholesterolemia E78.00 Obesity E66.9 Impaired glucose tolerance R73.02 Generalized anxiety disorder F41.1
[2023-10-13 12:34] VITALS: BP 152/80; PULSE 68; O2SAT 96; BMI 41.9
== END 2023-10-13 13:04 | disposition home or self-care (01) ==
PROVIDERS: PCP Internal Medicine; Visit Provider Internal Medicine
DX: I10 Essential (primary) hypertension (principal); Z68.41 Body mass index [BMI] 40.0-44.9, adult; Z96.651 Presence of right artificial knee joint; E66.01 Morbid (severe) obesity due to excess calories; E78.00 Pure hypercholesterolemia, unspecified; R73.02 Impaired glucose tolerance (oral); F41.1 Generalized anxiety disorder
CPT/HCPCS: 99214

== ENCOUNTER 2023-11-02 11:20 | Outpatient (AMB) | payer MEDICARE, SELFPAY ==
--- NOTE | 2023-11-02 11:26 | A.OFFVIS_ITS ---
Intake Visit Reasons: OV-left knee injection Intake Note: Therese is a 73-year-old female who presents with complaints of progressively worsening left knee pain. She did undergo right total knee replacement surgery on 07/26/2023. She reports minimal discomfort in her right knee. She describes her left knee pain as sharp in nature. Her left knee pain has gotten worse over the last few years in spite of continued non operative treatments. She has tried Tylenol and anti-inflammatory medicines which gave her minimal relief. She wishes to hold off on left total knee replacement surgery for long as possible. Allergies No Known Allergies Allergy (Verified 11/02/23 11:29) Medication List - Last Reconciled 11/02/23 by Joni Weir MD acetaminophen 650 mg (2 x 325 mg) PO Q6H PRN 30 days amoxicillin 2,000 mg (4 x 500 mg) PO ONCE 1 day atenolol 25 mg PO DAILY fenofibrate 160 mg PO DAILY 90 days [Left KNEE BRACE As directed] lorazepam 0.75 mg (1.5 x 0.5 mg) PO DAILY naldylxq-gbu-BB-lycopen-lutein 0.4 mg-300 mcg- 250 mcg (Centrum Silver) 1 tab PO DAILY [QUAD CANE As directed] simvastatin 10 mg PO BEDTIME walker Folding front wheeled walker COUNTS INCLUDE 234 BEDS AT THE [facility] Medical History (Updated 11/02/23 @ 12:39 by Joni Weir MD) Arthritis of left knee Preop exam for internal medicine Right knee pain Arthritis of right knee Colon cancer screening Frequency of micturition Obesity Hypercholesterolemia Hypertension Surgical History (Updated 10/13/23 @ 12:41 by Yodit Neff MD) Hx of right knee surgery (~07/26/23) Hx of lumpectomy History of breast lump/mass excision History of laparoscopic cholecystectomy History of umbilical hernia repair History of appendectomy Family History Father Stomach cancer Mother No problems noted. Social History Household Members: Spouse Housing: House Are you a primary career technical education teacher to a significant other at home: No Do you presently have visiting nurse or other home services: No Alcohol intake: never Comment: glass of wine once Q 2 months Patient Tobacco Use Status: Former Tobacco user Tobacco use type: Cigarette Years Smoked: quit 1979 e-Cigarette/Vaping Use: Never Used Second Hand Smoke Exposure: No service: No Current occupational status: retired Current occupation: rt hand Cognitive needs: No Hearing needs: No Vision needs: Yes Physical Exam Const Other: Well-nourished well-developed very friendly female awake alert and oriented x3 in no acute distress Extrem Other: Bilateral lower extremity examination shows good capillary refill, no skin lesions noted, normal sensation light touch Left knee examination shows a minimal effusion, palpable crepitus with range of motion, pain with range of motion, no instability Office Procedures Joint Injection/Drain Joint Injection/Drain Primary Site: left knee Prep: site was prepped using aseptic technique Injected: 40 mg of, DepoMedrol and 1% plain lidocaine Procedure: The patient tolerated the procedure well Coding - Large joint Procedure code (CPT) selection complete Results Reviewed Results Reviewed: X-rays of the patient's left knee show joint space narrowing, subchondral sclerosis, no acute bony abnormalities Assessment & Plan Assessment & Plan (1) Osteoarthritis of left knee: Code(s): M17.12 - Unilateral primary osteoarthritis, left knee Category: Medical Plan Ms. Bartlett presents with progressively worsening left knee pain due to osteoarthritis. I had a lengthy discussion with the patient regarding the treatment options. She wishes to hold off on left total knee replacement surgery for as long as possible. I agree with this plan. The risks and benefits of a left knee cortisone injection were discussed at length with the patient. The patient wished to proceed. She tolerated the injection well. She will continue with her home exercise program. She will contact me prior to her follow-up appointment in 3 months should any questions or concerns arise. Feel free to call me at any time should questions regarding her orthopedic management arise. I spent 22 minutes in reviewing the patient's records and imaging studies, seeing the patient and documenting in the medical record. Orders: Orders AMB Joint Injection/Aspiration Today M17.12 - Unilateral primary osteoarthritis, left knee Coding Level of Care Code Est Pt Level 3 (10591) Diagnoses Osteoarthritis of left knee M17.12 CPT Codes Coding - Large joint: 00923 - Large joint ([id number])
== END 2023-11-02 12:01 | disposition home or self-care (01) ==
PROVIDERS: PCP Internal Medicine; Visit Provider Orthopaedic Surgery
DX: M17.12 Unilateral primary osteoarthritis, left knee (principal)
CPT/HCPCS: 20610; 99213

== ENCOUNTER → 2023-11-02 11:20 | Outpatient (BNVA) | payer MEDICARE, SELFPAY | PROVIDERS: PCP Internal Medicine; Visit Provider Orthopaedic Surgery | DX: M17.12 Unilateral primary osteoarthritis, left knee (principal) | CPT/HCPCS: 20610; 99212; J1010 ==

== ENCOUNTER 2024-02-17 10:44 | Outpatient (AMB) | payer MEDICARE, SELFPAY ==
--- NOTE | 2024-02-17 10:51 | MHC.PC.OV ---
Vital Signs 02/17/24 10:52 Height 5 ft 1 in Weight 225 lb BMI 42.5 BP 130/72 Blood Pressure Location Lt brachial Position Sitting Pulse 70 Pulse Source Pulse Oximeter Pulse Oximetry (%) 96 Oxygen Delivery Method Room Air Intake Visit Reasons: HTN, R Knee Replacement Intake Note: Patient is here to follow up on HTN, R knee replacement. Pt decline flu shot today. Sales Program Manager Required: No Sustainability Coordinator: Present Accompanied by: Spouse Allergies No Known Allergies Allergy (Verified 02/17/24 10:52) Medication List - Last Reconciled 02/17/24 by Yodit Neff MD acetaminophen 650 mg (2 x 325 mg) PO Q6H PRN 30 days amoxicillin 2,000 mg (4 x 500 mg) PO ONCE 1 day atenolol 25 mg PO DAILY fenofibrate 160 mg PO DAILY 90 days [Left KNEE BRACE As directed] lorazepam 0.75 mg (1.5 x 0.5 mg) PO DAILY bruuvvpm-obo-LK-lycopen-lutein 0.4 mg-300 mcg- 250 mcg (Centrum Silver) 1 tab PO DAILY [QUAD CANE As directed] simvastatin 10 mg PO BEDTIME walker Folding front wheeled walker Tobacco use date assessed: 02/17/24 Fall risk assessment: No Falls in past year Last assessed Fall Risk: 02/17/24 Dental Screening Dental Screen Date: 06/23/23 HPI HTN, R Knee Replacement HPI Details 74-year-old morbidly obese female with a history of total right knee replacement hypercholesterolemia hypertension impaired glucose tolerance and generalized anxiety disorder last seen in 10/07/2023. Patient has refused colonoscopy up-to-date with mammogram and bone density. October note from orthopedics left knee getting worse. Hold off left total knee replacement injection done. [facility] Medical History (Updated 02/17/24 @ 11:09 by Yodit Neff MD) Knee osteoarthritis Colonoscopy refused Arthritis of left knee Preop exam for internal medicine Right knee pain Arthritis of right knee Colon cancer screening Frequency of micturition Obesity Hypercholesterolemia Hypertension Surgical History Hx of right knee surgery (~07/26/23) Hx of lumpectomy History of breast lump/mass excision History of laparoscopic cholecystectomy History of umbilical hernia repair History of appendectomy Family History Father Stomach cancer Mother No problems noted. Social History Household Members: Spouse Housing: House Are you a primary healthcare prof to a significant other at home: No Do you presently have visiting nurse or other home services: No Alcohol intake: never Comment: glass of wine once Q 2 months Patient Tobacco Use Status: Former Tobacco user Tobacco use type: Cigarette Years Smoked: quit 1979 e-Cigarette/Vaping Use: Never Used Second Hand Smoke Exposure: No service: No Current occupational status: retired Current occupation: rt hand Cognitive needs: No Hearing needs: No Vision needs: Yes Questionnaire Thrive Questionnaire Date Thrive assessed: 07/27/23 JACKIE-7 AMB Questionnaire JACKIE-7 Date JACKIE - 7 assessed: 05/12/23 Source: Developed by Drs. Regis Holliday, Cristela Velásquez, Solomon Villalobos and colleagues, with an educational jung from [employer]. Physical exam (Primary Care) Vital Signs: Last Vital Signs Pulse 70 02/17/24 10:52 BP 130/72 02/17/24 10:52 Pulse Ox 96 02/17/24 10:52 Oxygen Delivery Method Room Air 02/17/24 10:52 BMI result Body Mass Index 42.5 Tobacco/Smoking Status: Tobacco use Status Tobacco use date assessed 02/17/24 02/17/24 10:57 Patient Tobacco Use Status Former Tobacco user 02/17/24 10:57 Tobacco use type Cigarette 02/17/24 10:57 e-Cigarette/Vaping Use Never Used 02/17/24 10:57 Thrive Assessment: Date of Thrive Assessment Date Thrive assessed 07/27/23 02/17/24 10:57 Const General: alert; No acute distress Eyes Conjunctivae: conjunctivae normal Resp Auscultation: clear to auscultation bilaterally Cardio Rate: regular rate Rhythm: regular rhythm GI Inspection: Yes normal to inspection Extrem General: Yes normal to inspection and No edema Results AMB Hemoglobin A1c AMB Hemoglobin A1c 5.1 % Last Edit by HORACE Peralta on 02/17/24 11:08 Coding Level of Care Code Est Pt Level 4 (93354) Complex EM visit Add On G2211 Diagnoses Primary osteoarthritis of left knee M17.12 Osteoarthritis type: primary Status post total right knee replacement Z96.651 Primary hypertension I10 Hypertension type: primary hypertension Hypercholesterolemia E78.00 Obesity E66.9 Impaired glucose tolerance R73.02 Generalized anxiety disorder F41.1 Assessment & Plan Assessment & Plan (1) Osteoarthritis of left knee: Code(s): M17.12 - Unilateral primary osteoarthritis, left knee Category: Medical Qualifiers: Osteoarthritis type: primary Qualified Code(s): M17.12 - Unilateral primary osteoarthritis, left knee Plan: Patient follows up with ortho and has had an injection. (2) Status post total right knee replacement: Onset Date: ~07/26/23 Comment: Dr. Weir 07/2023 Code(s): Z96.651 - Presence of right artificial knee joint Category: Surgical Plan: Continue to keep active (3) Hypertension: Code(s): I10 - Essential (primary) hypertension Category: Medical Qualifiers: Hypertension type: primary hypertension Qualified Code(s): I10 - Essential (primary) hypertension Plan: Continue with blood pressure medication. Decrease salt intake and exercise on atenolol 25 mg once a day (4) Hypercholesterolemia: Code(s): E78.00 - Pure hypercholesterolemia, unspecified Category: Medical Plan: Avoid fried foods, chicken skin, eggs, butter margarine, pastries and meat. Be it pork or beef they have a lot of cholesterol LDL goal of less than 130 and triglyceride of less than 150 on simvastatin 10 mg once a day and fenofibrate 160 mg once a day (5) Obesity: Code(s): E66.9 - Obesity, unspecified Category: Medical Plan: Diet and exercise (6) Impaired glucose tolerance: Code(s): R73.02 - Impaired glucose tolerance (oral) Category: Medical Plan: Decrease the amount of carbohydrate intake, pasta, bread, rice and potatoes are all sugar and that is aside from all the sweet stuff, remember that fruits are good but they are Sweet also. (7) Generalized anxiety disorder: Comment: Decline any referral for counseling Code(s): F41.1 - Generalized anxiety disorder Category: Medical Plan: Continue with present medication Orders: Orders AMB Hemoglobin A1c Today R73.02 - Impaired glucose tolerance (oral) UA CC w/rflx Micro + Cult Today R30.0 - Dysuria Medications: Refilled lorazepam 0.75 mg (1.5 x 0.5 mg) PO DAILY 135 tabs 2RF anxiety F41.1 - Generalized anxiety disorder
[2024-02-17 10:52] VITALS: BP 130/72; PULSE 70; O2SAT 96; BMI 42.5
== END 2024-02-17 11:23 | disposition home or self-care (01) ==
LOC: HO.HMCH 10:45
PROVIDERS: PCP Internal Medicine; Visit Provider Internal Medicine
DX: M17.12 Unilateral primary osteoarthritis, left knee (principal); Z96.651 Presence of right artificial knee joint; Z68.41 Body mass index [BMI] 40.0-44.9, adult; I10 Essential (primary) hypertension; E78.00 Pure hypercholesterolemia, unspecified; E66.9 Obesity, unspecified; R73.02 Impaired glucose tolerance (oral); F41.1 Generalized anxiety disorder

== ENCOUNTER → 2024-02-17 10:44 | Outpatient (BNVA) | payer MEDICARE, SELFPAY | PROVIDERS: PCP Internal Medicine; Visit Provider Internal Medicine | DX: M17.12 Unilateral primary osteoarthritis, left knee (principal); I10 Essential (primary) hypertension; E78.00 Pure hypercholesterolemia, unspecified; E66.9 Obesity, unspecified; R73.02 Impaired glucose tolerance (oral); F41.1 Generalized anxiety disorder; Z96.651 Presence of right artificial knee joint | CPT/HCPCS: 83036; 99212 ==

== ENCOUNTER 2024-02-22 10:26 | Outpatient (AMB) | payer MEDICARE, SELFPAY ==
--- NOTE | 2024-02-22 10:43 | MHC.OFFVIS ---
Intake Visit Reasons: Left knee pain Intake Note: Therese is a 73-year-old female who presents with complaints of progressively worsening left knee pain. She did undergo right total knee replacement surgery on 07/26/2023. She reports minimal discomfort in her right knee. She describes her left knee pain as sharp in nature. Her left knee pain has gotten worse over the last few years in spite of continued non operative treatments. She has tried Tylenol and anti-inflammatory medicines which gave her minimal relief. She wishes to hold off on left total knee replacement surgery for long as possible. Allergies No Known Allergies Allergy (Verified 02/22/24 10:48) Medication List - Last Reconciled 02/22/24 by Joni Weir MD acetaminophen 650 mg (2 x 325 mg) PO Q6H PRN 30 days amoxicillin 2,000 mg (4 x 500 mg) PO ONCE 1 day atenolol 25 mg PO DAILY fenofibrate 160 mg PO DAILY 90 days [Left KNEE BRACE As directed] lorazepam 0.75 mg (1.5 x 0.5 mg) PO DAILY kysvpgug-wyh-QZ-lycopen-lutein 0.4 mg-300 mcg- 250 mcg (Centrum Silver) 1 tab PO DAILY [QUAD CANE As directed] simvastatin 10 mg PO BEDTIME walker Folding front wheeled walker [facility] Medical History (Updated 02/17/24 @ 11:09 by Yodit Neff MD) Knee osteoarthritis Colonoscopy refused Arthritis of left knee Preop exam for internal medicine Right knee pain Arthritis of right knee Colon cancer screening Frequency of micturition Obesity Hypercholesterolemia Hypertension Surgical History Hx of right knee surgery (~07/26/23) Hx of lumpectomy History of breast lump/mass excision History of laparoscopic cholecystectomy History of umbilical hernia repair History of appendectomy Family History Father Stomach cancer Mother No problems noted. Social History Household Members: Spouse Housing: House Are you a primary caregivers homecare to a significant other at home: No Do you presently have visiting nurse or other home services: No Alcohol intake: never Comment: glass of wine once Q 2 months Patient Tobacco Use Status: Former Tobacco user Tobacco use type: Cigarette Years Smoked: quit 1979 e-Cigarette/Vaping Use: Never Used Second Hand Smoke Exposure: No service: No Current occupational status: retired Current occupation: rt hand Cognitive needs: No Hearing needs: No Vision needs: Yes Physical Exam Const Other: Well-nourished well-developed very friendly female awake alert and oriented x3 in no acute distress Extrem Other: Bilateral lower extremity examination shows good capillary refill, no skin lesions noted, normal sensation light touch Left knee examination shows a minimal effusion, palpable crepitus with range of motion, pain with range of motion, no instability Office Procedures AMB Joint Injection/Aspiration Joint Injection/Aspiration Primary Site: left knee Prep: site was prepped using aseptic technique Injected: 40 mg of, DepoMedrol and 1% plain lidocaine Procedure: The patient tolerated the procedure well Coding 76075 - Large joint Procedure code (CPT) selection complete Results Reviewed Results Reviewed: X-rays of the patient's left knee taken previously show joint space narrowing, subchondral sclerosis, no acute bony abnormalities Assessment & Plan Assessment & Plan (1) Left knee pain: Code(s): M25.562 - Pain in left knee (2) Osteoarthritis of left knee: Code(s): M17.12 - Unilateral primary osteoarthritis, left knee Category: Medical Qualifiers: Osteoarthritis type: primary Qualified Code(s): M17.12 - Unilateral primary osteoarthritis, left knee Plan Ms. Bartlett presents with left knee pain due to degenerative joint disease. I had a lengthy discussion with the patient regarding the treatment options. The risks and benefits of a left knee cortisone injection were discussed at length with the patient. The patient wished to proceed. She tolerated the injection well. She will continue with her home exercise program. She will contact me prior to her follow-up appointment in 3 months should any questions or concerns arise. Feel free to call me at any time should questions regarding her orthopedic management arise. I spent 20 minutes in reviewing the patient's records and imaging studies, seeing the patient and documenting in the medical record. Orders: Orders AMB Joint Injection/Aspiration Today M17.12 - Unilateral primary osteoarthritis, left knee Coding Level of Care Code Est Pt Level 3 (44885) Complex EM visit Add On G2211 Diagnoses Left knee pain M25.562 Primary osteoarthritis of left knee M17.12 Osteoarthritis type: primary CPT Codes Coding - 81661 Large joint: 65225 - Large joint ([id number])
== END 2024-02-22 11:09 | disposition home or self-care (01) ==
LOC: HO.HOS 10:26
PROVIDERS: PCP Internal Medicine; Visit Provider Orthopaedic Surgery
DX: M17.12 Unilateral primary osteoarthritis, left knee (principal)
CPT/HCPCS: 20610; 99213

== ENCOUNTER → 2024-02-22 10:26 | Outpatient (BNVA) | payer MEDICARE, SELFPAY | PROVIDERS: PCP Internal Medicine; Visit Provider Orthopaedic Surgery | DX: M17.12 Unilateral primary osteoarthritis, left knee (principal); Z96.651 Presence of right artificial knee joint | CPT/HCPCS: 20610; 99212; J1010; J2003 ==

== ENCOUNTER 2024-06-22 15:38 | Outpatient (AMB) | payer MEDICARE, SELFPAY ==
--- NOTE | 2024-06-22 15:38 | A.OFFPC_ITS ---
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 Accompanied by: Spouse Allergies No Known Allergies Allergy (Verified 06/22/24 15:49) Medication List - Last Reconciled 06/22/24 by Yodit Neff MD acetaminophen 650 mg (2 x 325 mg) PO Q6H PRN 30 days atenolol 25 mg PO DAILY fenofibrate 160 mg PO DAILY 90 days [Left KNEE BRACE As directed] lorazepam 0.75 mg (1.5 x 0.5 mg) PO DAILY hdlvzpem-wit-SW-lycopen-lutein 0.4 mg-300 mcg- 250 mcg (Centrum Silver) 1 tab PO DAILY [QUAD CANE As directed] [rollator with seat As directed] simvastatin 10 mg PO BEDTIME walker Folding front wheeled walker Tobacco use date assessed: 06/22/24 Fall risk assessment: No Falls in past year Last assessed Fall Risk: 06/22/24 Dental Screening Dental Screen Date: 06/23/23 HPI frequency HPI Details 74-year-old morbidly obese female noted 20 lb weight gain with hypertension hypercholesterolemia impaired glucose tolerance generalized anxiety disorder status post right knee replacement July 2023 having left knee osteoarthritis. Patient has met with the Orthopedics and declined surgery for now and did receive a shot. Otherwise patient has no other complaints no chest pains no shortness a breath no bowel bladder symptoms no nausea no vomiting. [facility] Medical History Knee osteoarthritis Colonoscopy refused Arthritis of left knee Preop exam for internal medicine Right knee pain Arthritis of right knee Colon cancer screening Frequency of micturition Obesity Hypercholesterolemia Hypertension Surgical History Hx of right knee surgery (~07/26/23) Hx of lumpectomy History of breast lump/mass excision History of laparoscopic cholecystectomy History of umbilical hernia repair History of appendectomy Family History Father Stomach cancer Mother No problems noted. Social History Household Members: Spouse Housing: House Are you a primary patient care coordinator to a significant other at home: No Do you presently have visiting nurse or other home services: No Alcohol intake: never Comment: glass of wine once Q 2 months Patient Tobacco Use Status: Former Tobacco user Tobacco use type: Cigarette Years Smoked: quit 1979 e-Cigarette/Vaping Use: Never Used Second Hand Smoke Exposure: No service: No Current occupational status: retired Current occupation: rt hand Cognitive needs: No Hearing needs: No Vision needs: Yes Questionnaire PHQ-9 Over the last 2 weeks, how often have you been bothered by any of the following problems? 1. Little interest or pleasure in doing things: not at all 2. Feeling down, depressed, or hopeless: not at all 3. Trouble falling or staying asleep, or sleeping too much: not at all 4. Feeling tired or having little energy: not at all 5. Poor appetite or overeating: not at all 6. Feeling bad about yourself - or that you are a failure or have let yourself or your family down: not at all 7. Trouble concentrating on things, such as reading the newspaper or watching television: not at all 8. Moving or speaking so slowly that other people could have noticed. Or the opposite - being so fidgety or restless that you have been moving around a lot more than usual: not at all 9. Thoughts that you would be better off or of hurting yourself in some way: not at all Total score: 0 Depression Screening Interpretation: Negative Depression Screening Done: Yes Source: Developed by Drs. Regis Holliday, Cristela Velásquez, Solomon Villalobos and colleagues, with an educational jung from [employer]. Thrive Questionnaire Date Thrive assessed: 06/22/24 I am a: Patient What is your living situation today?: I have a steady place to live Within the past 12 months, did the food you bought not last and you didn't have the money to get more?: Never true Within the past 12 months, did you worry whether your food would run out before you got money to buy more?: Never true Do you have trouble paying for medicines?: No Do you have trouble getting transportation to medical appointments?: No Do you have trouble paying your heating and electricity bill?: No Do you have trouble taking care of your child, family member or friend?: No Do you have trouble with day-to-day activities such as bathing, preparing meals, shopping, managing finances, etc.?: No Are you currently unemployed and looking for a job?: No Are you interested in more education?: No THRIVE Score: 0 AUDIT C Alcohol Use Questionnaire (AUDIT-C) 1. How often do you have a drink containing alcohol?: Never 3. How often do you have six or more drinks on one occasion?: Never Total Score: 0 JACKIE-7 AMB Questionnaire JACKIE-7 Date JACKIE - 7 assessed: 06/22/24 Feeling nervous, anxious, or on edge: 0 = Not at all Not being able to stop or control worryin = Not at all Worrying too much about different things: 0 = Not at all Trouble relaxin = Not at all Being so restless that it is hard to sit still: 0 = Not at all Becoming easily annoyed or irritable: 0 = Not at all Feeling afraid as if something awful might happen: 0 = Not at all Total JACKIE-7 score (0-4 normal; 5-9 mild; 10-14 moderate; 15-21 severe): 0 Source: Developed by Drs. Regis Holliday, Cristela Velásquez, Solomon Villalobos and colleagues, with an educational jung from [employer]. Physical exam (Primary Care) Vital Signs: Last Vital Signs Temp 97.8 F 06/22/24 15:40 Pulse 70 06/22/24 15:40 Resp 16 06/22/24 15:40 BP 136/70 06/22/24 15:40 Pulse Ox 97 06/22/24 15:40 Oxygen Delivery Method Room Air 06/22/24 15:40 BMI result Body Mass Index 46.3 Tobacco/Smoking Status: Tobacco use Status Tobacco use date assessed 06/22/24 06/22/24 15:51 Patient Tobacco Use Status Former Tobacco user 06/22/24 15:41 Tobacco use type Cigarette 06/22/24 15:41 e-Cigarette/Vaping Use Never Used 06/22/24 15:41 PHQ-9: PHQ-9 Score PHQ-9: Total score 0 06/22/24 15:53 Depression Screening Interpretation: Negative Thrive Assessment: Date of Thrive Assessment Date Thrive assessed 06/22/24 06/22/24 15:41 Const General: alert; No acute distress Eyes Conjunctivae: conjunctivae normal Resp Auscultation: clear to auscultation bilaterally Cardio Rate: regular rate Rhythm: regular rhythm GI Inspection: Yes normal to inspection Extrem General: Yes normal to inspection and No edema Results AMB Hemoglobin A1c AMB Hemoglobin A1c 5.4 % Last Edit by HORACE Menjivar on 06/22/24 15:54 Results Reviewed Results Reviewed: Laboratory Last Values Hgb A1c (Clinic) 5.4 % (4.0-6.0) 06/22/24 15:52 Coding Level of Care Code Est Pt Level 4 (59264) Diagnoses Primary osteoarthritis of left knee M17.12 Osteoarthritis type: primary Status post total right knee replacement Z96.651 Primary hypertension I10 Hypertension type: primary hypertension Hypercholesterolemia E78.00 Generalized anxiety disorder F41.1 Morbid obesity E66.01 Impaired glucose tolerance R73.02 Assessment & Plan Assessment & Plan (1) Osteoarthritis of left knee: Code(s): M17.12 - Unilateral primary osteoarthritis, left knee Category: Medical Qualifiers: Osteoarthritis type: primary Qualified Code(s): M17.12 - Unilateral primary osteoarthritis, left knee Plan: Patient follows up with orthopedics and has had injections recently. Patient wants to hold off surgery (2) Status post total right knee replacement: Onset Date: ~07/26/23 Comment: Dr. Weir 07/2023 Code(s): Z96.651 - Presence of right artificial knee joint Category: Surgical Plan: Patient is doing good post surgery on the right knee (3) Hypertension: Code(s): I10 - Essential (primary) hypertension Category: Medical Qualifiers: Hypertension type: primary hypertension Qualified Code(s): I10 - Essential (primary) hypertension Plan: Continue with blood pressure medication. Decrease salt intake and exercise on atenolol 25 mg once a day (4) Hypercholesterolemia: Code(s): E78.00 - Pure hypercholesterolemia, unspecified Category: Medical Plan: Avoid fried foods, chicken skin, eggs, butter margarine, pastries and meat. Be it pork or beef they have a lot of cholesterol LDL goal of less than 130 and triglyceride of less than 150. Patient needs to have blood work (5) Generalized anxiety disorder: Comment: Decline any referral for counseling Code(s): F41.1 - Generalized anxiety disorder Category: Medical Plan: Continue with present medication as needed (6) Morbid obesity: Code(s): E66.01 - Morbid (severe) obesity due to excess calories Category: Medical Plan: Diet and exercise noted 20 lb weight gain (7) Impaired glucose tolerance: Code(s): R73.02 - Impaired glucose tolerance (oral) Category: Medical Plan: Decrease the amount of carbohydrate intake, pasta, bread, rice and potatoes are all sugar and that is aside from all the sweet stuff, remember that fruits are good but they are Sweet also. Plan History of Present Illness Health Maintenance - Declined colonoscopy screening. - Up-to-date with mammogram (last done April 2024). - Bone density testing last completed in March 2022. - Emphasis on weight management discussing diet, exercise, and the patient?s recent 20-pound weight gain. - Cholesterol management targeted LDL <130 mg/dL, triglycerides <150 mg/dL. - Regular blood pressure checks with atenolol 25 mg/day. - Nutrition and physical activity to mitigate cardiovascular disease risk. Social History - Decreased physical activity, previously walking regularly with spouse. - Consumes typical [place] diet with emphasis needing change due to recent weight discussion. - Reported dietary habits include oatmeal for breakfast, rabbit food for lunch, and occasional unhealthy snacks such as Oreos. Review of Systems - Musculoskeletal: Reports left knee pain. - Psychological: Reports generalized anxiety disorder. Physical Exam Results - Labs: Normal iron levels (February 16, 2024). - A1c level of 5.4. Plan The current plan is to continue managing the left knee osteoarthritis with injections as previously administered, avoiding surgery for now given the patient's preference. Steps to manage morbid obesity include promoting increased physical activity through the use of a rollator walker and dietary changes to facilitate weight loss. Essential hypertension will be addressed continuously with atenolol. The patient is advised to focus on nutrition and physical activity to meet target lipid levels, while respecting her decision to forego additional medications for weight management. Regular monitoring and maintenance of general health measures such as mammograms and blood work will continue as p er the patient?s standard care, respecting her decisions to refuse certain screenings like colonoscopy. Patient was informed and verbally consented to the use of an ambient scribe for clinic note documentation during this visit. Discussion Notes I discussed with the patient the diagnosis of osteoarthritis of the left knee and her preference to manage it conservatively with injections instead of surgical options. The importance of managing morbid obesity through lifestyle changes such as increased physical activity and dietary adjustments was emphasized. I addressed the patient's concerns about the high cost of medications like Mounjaro, highlighting the potential benefits of diet and exercise. We talked about maintaining consistent cholesterol management and her current hypertension treatment plan with atenolol. I confirmed her plan to maintain regular monitoring through planned check-ups and supportive health maintenance activities. We agreed on the necessity of concentrating on her overall health improvement, especially through examining lifestyle factors impacting her current weight and joint issues. Patient Instructions - Continue left knee injections as needed for osteoarthritis pain. - Use a rollator walker to aid mobility and encourage walking. - Follow a low-calorie, nutritious diet to assist in weight loss. - Maintain essential hypertension management with atenolol 25 mg daily. - Avoid high-cost medications for weight management and focus on lifestyle changes. - Follow regular monitoring routines for cholesterol and overall health. - Ensure up-to-date preventative measures and screenings, respecting personal decisions regarding certain tests. Orders: Orders AMB Hemoglobin A1c Today R73.02 - Impaired glucose tolerance (oral) Medications: New [rollator with seat] As directed 1 ea 0 E66.01 - Morbid (severe) obesity due to excess calories
[2024-06-22 15:40] VITALS: BP 136/70; PULSE 70; RESP 16; TEMP 36.6; O2SAT 97; BMI 46.3
--- OUTSIDE RECORDS SUMMARY | 2024-06-22 19:05 | XMS_ITS | Clinical Summary ---
Author Organization [facility] Address [address] [place] [address] Phone Care Team Providers Care Senior Hr Business Partner Name Role Phone Yodit Neff MD Primary Care Provider [phone] Encounters Date Type Department Care Team Description 05/05/2024 12:58 PM EST - 05/05/2024 11:59 PM EST [facility] [address] [address] Encounter for screening mammogram for breast cancer Discharge Disposition: Home or Self Care from Last 3 Months Surgical History Surgery Date Site/Laterality Comments STEREOTACTIC CORE BIOPSY Bilateral Family History Medical History Relation Name Comments Breast cancer Paternal Cousin Relation Name Status Comments Paternal Cousin Alive Social History Tobacco Use Types Packs/Day Years Used Date Smoking Tobacco: Never Assessed Comments No Sex and Gender Information Value Date Recorded Sex Assigned at Not on file Legal Sex Female 12:20 PM EST Gender Identity Not on file Sexual Orientation Not on file Obstetrics History Para Term AB IAB SAB Ectopic Multiple Livin g Live Births 1 Last Filed Vital Signs Vital Sign Reading Time Taken Comments Blood Pressure - - Pulse - - Temperature - - Respiratory Rate - - Oxygen Saturation - - Inhaled Oxygen Concentration - - Weight 109 kg (240 lb) 05/05/2024 1:14 PM EST Height 154.9 cm (5' 1 ) 05/05/2024 1:14 PM EST Body Mass Index 45.35 05/05/2024 1:14 PM EST Plan of Treatment Health Maintenance Due Date Last Done Comments DTaP,Tdap,and Td Vaccines (1 - Tdap) 01/15/1968 Pneumococcal Vaccine: 50+ Years (1 of 1 - PCV) 1999 Zoster Vaccines (1 of 2) 1999 Colorectal Cancer Screening: Colonoscopy 03/17/2022 Depression Screening 03/17/2022 Falls Risk Assessment 03/17/2022 Hepatitis C Screening 03/17/2022 Medicare Annual Wellness Visit 03/17/2022 Osteoporosis Screening (Bone Density Screening) 03/17/2022 Social Influencers of Health Screening 03/17/2022 COVID-19 Vaccine ( season) 2023 01/23/2022, 02/08/2021, 07/15/2020, Additional history exists Influenza Vaccine (#1) 2023 RSV Immunization Patients 60+ Years Old (1 - 1-dose 75+ series) 01/15/2024 Breast Cancer Screening Discontinued 05/05/19, 05/03/2023, 04/17/2022, Additional history exists HIB Vaccines Aged Out No longer eligi ble based on patient's age to complete this topic HPV Vaccines Aged Out No longer eligi ble based on patient's age to complete this topic Hepatitis A Vaccines Aged Out No long er eligible based on patient's age to complete this topic Hepatitis B Vaccines Aged Out No long er eligible based on patient's age to complete this topic IPV Vaccines Aged Out No longer eligi ble based on patient's age to complete this topic MMR Vaccines Aged Out No longer eligi ble based on patient's age to complete this topic Meningococcal ACWY Vaccine Aged Out N o longer eligible based on patient's age to complete this topic Meningococcal B Vacine Aged Out No lo nger eligible based on patient's age to complete this topic RSV Immunization Patients Under 20 months Aged Out No longer eligible based on patient's age to complete this topic Varicella Vaccines Aged Out No longer eligible based on patient's age to complete this topic Procedures Procedure Name Priority Date/Time Associated Diagnosis Comments MG MAMMO DIGITAL SCREENING W ALTAF BILAT Routine 05/05/2024 1:40 PM EST Encounter for screening mammogram for breast cancer from Last 3 Months Results * MG Mammo Digital Screening w Altaf bilat (05/05/2024 1:40 PM EST) Anatomical Region Laterality Modality Breast Bilateral Mammography 05/05/2024 4:44 PM EST Impressions 05/05/2024 4:56 PM EST No mammographic evidence of malignancy. ?? No suspicious interval change. A negative mammogram in the presence of a clinically suspicious palpable abnormality does not preclude the possibility of malignancy or alter the indications for biopsy. ASSESSMENT: ?? BI-RADS 2: BENIGN RECOMMENDATION(S): 1: Routine screening mammogram BILATERAL in 1 year. -------- FINAL REPORT -------- Dictated By: Carlos Manuel Woodard Dictated Date: 05/05/2024 16:44 ET Assigned Physician: Carlos Manuel Woodard Reviewed and Electronically Signed By: Carlos Manuel Woodard Signed Date: 05/05/2024 16:56 ET Workstation ID: [id number] Transcribed By: Self Edit Transcribed Date: 05/05/2024 16:44 ET Narrative 05/05/2024 4:56 PM EST EXAM: ??SCREENING MAMMOGRAPHY, BILATERAL HISTORY: ??SCREENING. ??Scar upper areolar margin right breast. COMPARISON: ??05/03/2023, 04/17/2022, 03/30/2021, 02/03/2020 TECHNIQUE: Synthesized CC and MLO projections of each breast. ??Tomosynthesis of each breast in the CC and MLO projections. ADDITIONAL IMAGING: None Computer-aided detection was employed with the iCAD ??profound AI 3-D. TISSUE DENSITY: The breasts are heterogeneously dense, which may obscure small masses. (BI-RADS category C) FINDINGS: RIGHT BREAST: No suspicious mass. No suspicious calcification. No distortion. ?? There are stable diffuse round, punctate, amorphous and vascular calcifications. LEFT BREAST: No suspicious mass. No suspicious calcification. No distortion. ?? Stable global asymmetry upper outer left breast. ??Stable diffuse round, punctate, amorphous and vascular calcifications. Procedure Note Carlos Manuel Woodard MD - 05/05/2024 EXAM: SCREENING MAMMOGRAPHY, BILATERAL HISTORY: SCREENING. Scar upper areolar margin right breast. COMPARISON: 05/03/2023, 04/17/2022, 03/30/2021, 02/03/2020 TECHNIQUE: Synthesized CC and MLO projections of each breast.Tomosynthesis of each breast in the CC and MLO projections. ADDITIONAL IMAGING: None Computer-aided detection was employed with the iCAD profound AI 3-D. TISSUE DENSITY: The breasts are heterogeneously dense, which may obscuresmall masses. (BI-RADS category C) FINDINGS: RIGHT BREAST: No suspicious mass. No suspicious calcification. No distortion. Thereare stable diffuse round, punctate, amorphous and vascularcalcifications. LEFT BREAST: No suspicious mass. No suspicious calcification. No distortion. Stableglobal asymmetry upper outer left breast. Stable diffuse round, punctate,amorphous and vascular calcifications. IMPRESSION: No mammographic evidence of malignancy. No suspicious interval change. A negative mammogram in the presence of a clinically suspicious palpableabnormality does not preclude the possibility of malignancy or alter theindications for biopsy. ASSESSMENT: BI-RADS 2: BENIGN RECOMMENDATION(S): 1: Routine screening mammogram BILATERAL in 1 year. -------- FINAL REPORT -------- Dictated By: Carlos Manuel Woodard Dictated Date: 05/05/2024 16:44 ET Assigned Physician: Carlos Manuel Woodard Reviewed and Electronically Signed By: Carlos Manuel Woodard Signed Date: 05/05/2024 16:56 ET Workstation ID: [id number] Transcribed By: Self Edit Transcribed Date: 05/05/2024 16:44 ET us Self Referral Sppl IMG BI PROCEDURES Final Resul t from Last 3 Months Insurance MEDICARE [facility] Care Teams Senior Hr Business Partner Relationship Specialty Start Date End Date Yodit Neff MD [address] [place] [address] [address] [facility] [place] [address] PCP - General Internal Medicine 05/05/24
== END 2024-06-22 16:15 | disposition home or self-care (01) ==
PROVIDERS: PCP Internal Medicine; Visit Provider Internal Medicine
DX: M17.12 Unilateral primary osteoarthritis, left knee (principal); Z96.651 Presence of right artificial knee joint; E66.01 Morbid (severe) obesity due to excess calories; Z68.42 Body mass index [BMI] 45.0-49.9, adult; I10 Essential (primary) hypertension; E78.00 Pure hypercholesterolemia, unspecified; F41.1 Generalized anxiety disorder; R73.02 Impaired glucose tolerance (oral)

== ENCOUNTER → 2024-06-22 15:38 | Outpatient (BNVA) | payer MEDICARE, SELFPAY | PROVIDERS: PCP Internal Medicine; Visit Provider Internal Medicine | DX: M17.12 Unilateral primary osteoarthritis, left knee (principal); I10 Essential (primary) hypertension; E78.00 Pure hypercholesterolemia, unspecified; F41.1 Generalized anxiety disorder; E66.01 Morbid (severe) obesity due to excess calories; R73.02 Impaired glucose tolerance (oral); Z96.651 Presence of right artificial knee joint | CPT/HCPCS: 83036; 99212 ==

== ENCOUNTER 2024-07-26 11:24 | Outpatient (AMB) | payer MEDICARE, SELFPAY ==
--- NOTE | 2024-07-26 11:29 | A.OFFVIS_ITS ---
Intake Visit Reasons: Left knee pain Intake Note: Therese is a 74 year old male who presents today with complaints of left knee pain. She describes her pain as sharp in nature. She did undergo right total knee replacement surgery on 07/26/2023. She denies any pain in her right knee. She wishes to hold off on left total knee replacement surgery for as long as possible. She has tried Tylenol and anti-inflammatory medicines which gave her mild relief. She does take Dilaudid intermittently to help her sleep. She denies any locking or giving way. She has had cortisone injections in the past which gave her fairly good relief. Allergies No Known Allergies Allergy (Verified 06/22/24 15:49) Medication List - Last Reconciled 07/26/24 by Joni Weir MD acetaminophen 650 mg (2 x 325 mg) PO Q6H PRN 30 days atenolol 25 mg PO DAILY fenofibrate 160 mg PO DAILY 90 days [Left KNEE BRACE As directed] lorazepam 0.75 mg (1.5 x 0.5 mg) PO DAILY xqtridmn-fnb-PR-lycopen-lutein 0.4 mg-300 mcg- 250 mcg (Centrum Silver) 1 tab PO DAILY nitrofurantoin monohyd/m-cryst 100 mg 100 mg PO Q12H [QUAD CANE As directed] [rollator with seat As directed] simvastatin 10 mg PO BEDTIME walker Folding front wheeled walker PFSH Medical History Knee osteoarthritis Colonoscopy refused Arthritis of left knee Preop exam for internal medicine Right knee pain Arthritis of right knee Colon cancer screening Frequency of micturition Obesity Hypercholesterolemia Hypertension Surgical History Hx of right knee surgery (~07/26/23) Hx of lumpectomy History of breast lump/mass excision History of laparoscopic cholecystectomy History of umbilical hernia repair History of appendectomy Family History Father Stomach cancer Mother No problems noted. Social History Household Members: Spouse Housing: House Are you a primary pediatric care coordinator to a significant other at home: No Do you presently have visiting nurse or other home services: No Alcohol intake: never Comment: glass of wine once Q 2 months Patient Tobacco Use Status: Former Tobacco user Tobacco use type: Cigarette Years Smoked: quit 1979 e-Cigarette/Vaping Use: Never Used Second Hand Smoke Exposure: No service: No Current occupational status: retired Current occupation: rt hand Cognitive needs: No Hearing needs: No Vision needs: Yes Physical Exam Const Other: Well-nourished well-developed very friendly female awake alert and oriented x3 in no acute distress Extrem Other: Bilateral lower extremity examination shows good capillary refill, no skin lesions noted, normal sensation light touch Left knee examination shows a minimal effusion, palpable crepitus with range of motion, pain with range motion, no instability Office Procedures AMB Joint Injection/Aspiration Joint Injection/Aspiration Primary Site: left knee Prep: site was prepped using aseptic technique Injected: 40 mg of, DepoMedrol and 1% plain lidocaine Procedure: The patient tolerated the procedure well Coding 78354 - Large joint Procedure code (CPT) selection complete Results Reviewed Results Reviewed: X-rays of the patient's left knee taken previously show joint space narrowing, subchondral sclerosis, no acute bony abnormalities Assessment & Plan Assessment & Plan (1) Osteoarthritis of left knee: Code(s): M17.12 - Unilateral primary osteoarthritis, left knee Category: Medical Qualifiers: Osteoarthritis type: primary Qualified Code(s): M17.12 - Unilateral primary osteoarthritis, left knee (2) Left knee pain: Code(s): M25.562 - Pain in left knee Plan Ms. Bartlett presents with left knee pain due to degenerative joint disease. The risks and benefits of a left knee cortisone injection were discussed at length with the patient. The patient. She tolerated the injection well. She will continue with her home exercise program. She does know to take antibiotics before any dental work. She will contact me prior to her follow-up appointment in 3 months should any questions or concerns arise. Feel free to call me at any time should questions regarding her orthopedic management arise. I spent 20 minutes in reviewing the patient's records and imaging studies, seeing the patient and documenting in the medical record. Orders: Orders AMB Joint Injection/Aspiration Today M17.12 - Unilateral primary osteoarthritis, left knee Medications: New hydromorphone (Dilaudid) Partial Fill upon patient request. 2 mg PO Q24H PRN 30 tabs 0RF pain Coding Level of Care Code Est Pt Level 3 (07277) Complex EM visit Add On G2211 Diagnoses Primary osteoarthritis of left knee M17.12 Osteoarthritis type: primary Left knee pain M25.562 CPT Codes Coding - 70815 Large joint: 51494 - Large joint ([id number])
--- OUTSIDE RECORDS SUMMARY | 2024-07-26 13:30 | XMS_ITS | Clinical Summary ---
Author Organization [facility] Address [address] [place] [address] Phone Care Team Providers Care Pipeline Gang Supervisor Name Role Phone Yodit Neff MD Primary Care Provider [phone] Encounters Date Type Department Care Team Description 05/05/2024 12:58 PM EST - 05/05/2024 11:59 PM EST [facility] [address] [address] Encounter for screening mammogram for [...] 2023 01/23/2022, 02/08/2021, 07/15/2020, Additional history exists RSV Immunization Adult Patients (1 - 1-dose 75+ series) 01/15/2024 Influenza Vaccine (Season Ended) 2024 Breast Cancer Screening Discontinued 05/05/19, 05/03/2023, 04/17/2022, [...] age to complete this topic Meningococcal B Vaccine Aged Out No l onger eligible based on patient's age to complete [...] Signed Date: 05/05/2024 16:56 ET Workstation ID: [id number] Transcribed By: Self Edit Transcribed Date: 05/05/2024 [...] Signed Date: 05/05/2024 16:56 ET Workstation ID: [id number] Transcribed By: Self Edit Transcribed Date: 05/05/2024 16:44 ET us Self Referral Sppl IMG BI PROCEDURES Final Resul t from Last 3 Months Insurance MEDICARE [facility] Care Teams Pipeline Gang Supervisor Relationship Specialty Start Date End Date Yodit Neff MD [address] [place] [address] [address] [facility] [place] [address] PCP - General Internal Medicine 05/05/24
== END 2024-07-26 11:52 | disposition home or self-care (01) ==
LOC: HO.HOS 11:25
PROVIDERS: PCP Internal Medicine; Visit Provider Orthopaedic Surgery
DX: M17.12 Unilateral primary osteoarthritis, left knee (principal)
CPT/HCPCS: 20610; 99213

== ENCOUNTER → 2024-07-26 11:24 | Outpatient (BNVA) | payer MEDICARE, SELFPAY | PROVIDERS: PCP Internal Medicine; Visit Provider Orthopaedic Surgery | DX: M17.12 Unilateral primary osteoarthritis, left knee (principal); M25.562 Pain in left knee | CPT/HCPCS: 20610; 99212; J1010; J2003 ==

== ENCOUNTER 2024-08-31 09:24 | Outpatient (REF) | payer MEDICARE, SELFPAY ==
[2024-08-31 09:46] LABS: MANUAL DIFF FLAG NO
--- OUTSIDE RECORDS SUMMARY | 2024-08-31 10:01 | XMS_ITS | Clinical Summary ---
Author Organization [facility] Address [address] [place] [phone] Phone Care Team Providers Care Manual Arts Therapy Teacher Name Role Phone Yodit Neff MD Primary Care Provider [phone] Surgical History Surgery Date Site/Laterality Comments STEREOTACTIC [...] for breast cancer from Last 3 Months or Most Recently Relevant to Health Maintenance Results * MG Mammo Digital Screening w [...] Signed Date: 05/05/2024 16:56 ET Workstation ID: [id number] Transcribed By: Self Edit Transcribed Date: 05/05/2024 [...] Signed Date: 05/05/2024 16:56 ET Workstation ID: [id number] Transcribed By: Self Edit Transcribed Date: 05/05/2024 16:44 ET us Self Referral Sppl IMG BI PROCEDURES Final Resul t from Last 3 Months or Most Recently Relevant to Health Maintenance Insurance MEDICARE [facility] Care Teams Manual Arts Therapy Teacher Relationship Specialty Start Date End Date Yodit Neff MD [address] [place] [address] [address] [facility] [place] [address] PCP - General Internal Medicine 05/05/24
[2024-08-31 10:52] LABS: Basophils Absolute Auto 0.1 X10*3/uL (0.0-0.2); Eosinophils Absolute Auto 0.2 X10*3/uL (0.0-0.4); Eosinophils Percent Auto 2.6 % (0-4); Hemoglobin 13.6 g/dl (12.0-16.0); Imm Gran Abs Auto 0.06 X10*3/uL (0.00-0.03); Imm Gran Pct Auto 0.7 % (0.0-0.4); Lymphocytes Absolute Auto 2.1 X10*3/uL (1.2-4.9); Lymphocytes Percent Auto 23.8 % (20-40); Mean Corpuscular HGB Conc 33.2 g/dl (31.0-35.0); Mean Corpuscular Hemoglobin 31.8 pg (27.0-33.0); Mean Corpuscular Volume 95.8 fL (80.0-98.0); Mean Platelet Volume 9.7 fL (9.4-12.3); Monocytes Absolute Auto 0.9 X10*3/uL (0.1-1.2); Monocytes Percent Auto 9.7 % (2-11); Neutrophils Absolute Auto 5.6 x10*3/uL (2.0-8.3); Neutrophils Percent Auto 62.2 % (45-73); Platelet Count 353 X10*3/uL (160-400); Red Blood Count 4.28 X10*6/uL (4.20-5.50); Red Cell Distribution Width 12.9 % (11.0-16.0); Retic HGB Equivalent 34.4 pg (30.0-35.0); Reticulocyte Percent 2.2 % (0.5-1.8); Reticulocytes Absolute 0.095 X10*6/uL (0.026-0.095)
[2024-08-31 11:00] LABS: Estimated Average Glucose 111 mg/dL; Hemoglobin A1C 133.8263 umol/L; Hemoglobin A1c % 5.5 % (<6.0); Total Hemoglobin (HGBA1C) 3643.3187 umol/L
[2024-08-31 11:25] LABS: Alanine Aminotransferase 22 U/L (0-31); Alkaline Phosphatase 46 U/L (39-117); Anion Gap 13 (12-20); Aspartate Amino Transferase 25 U/L (5-31); Bilirubin Total 0.5 mg/dL (0.0-1.0); Blood Urea Nitrogen 18 mg/dL (9-16); Calcium 9.4 mg/dL (8.4-10.2); Carbon Dioxide 22 mmol/L (22-29); Chloride 109 mmol/L (96-108); Cholesterol 179 mg/dL (<200); Estimated Glomerular Filt Rate > 60; Glucose Random 118 mg/dL (60-115); HDL Cholesterol 44 mg/dL (>40); Iron 85 mcg/dL (30-160); LDL Cholesterol Calculated 101 mg/dL (<100); Percent Iron Saturation 28 % (15-50); Potassium 4.3 mmol/L (3.3-5.1); Sodium 140 mmol/L (135-145); Total Iron Binding Capacity 306 mcg/dL (228-428); Total Protein 7.3 g/dL (6.5-8.0); Triglycerides 170 mg/dL (<150); Unsaturated Iron Binding 221 ug/dL
[2024-08-31 11:35] LABS: Appearance Urine Cloudy; Color Urine Dark Yellow; Glucose Urine UA Negative (Negative); Leukocyte Esterase Urine Trace (Negative); Nitrite Urine Negative (Negative); PH 5.5 (5.0-9.0); Specific Gravity - Urine >= 1.030 (1.005-1.025); UMIC TRIGGER UACC YES; Urine Blood Negative (Negative); Urine Ketones Trace mg/dL (Negative); Urine Protein Trace mg/dL (Neg-Trace)
[2024-08-31 11:43] LABS: Ferritin 175 ng/mL (10-250); Free T4 (Free Thyroxine) 0.84 ng/dL (0.71-1.85); Thyroid Stimulating Hormone 1.35 uIU/mL (0.32-4.0); Vitamin D 25-OH Total 33.5 ng/mL (>30)
[2024-08-31 11:51] LABS: Folate 15.2 ng/mL (> or = 4.0); Vitamin B12 830 pg/mL (200-900)
[2024-08-31 11:53] LABS: Bacteria Urine Trace (None Seen); Calcium Oxalate Crystals Urine Present; Hyaline Casts Urine 0-2 /LPF (0-2); RBC Urine 0-2 /HPF (0-2); Squamous Epithelial Cell Urine >20 /HPF (0-2); WBC Urine 0-5 /HPF (0-5)
== END 2024-08-31 09:25 | disposition home or self-care (01) ==
LOC: HO.LAB 09:24
PROVIDERS: PCP Internal Medicine; Visit Provider Internal Medicine
DX: R73.02 Impaired glucose tolerance (oral) (principal); E78.00 Pure hypercholesterolemia, unspecified
CPT/HCPCS: 36415; 80053; 80061; 81001; 82306; 82607; 82728; 82746; 83036; 83540; 84439; 84443; 85025; 85045

== ENCOUNTER 2024-09-01 15:52 | Outpatient (AMB) | payer MEDICARE, SELFPAY ==
--- OUTSIDE RECORDS SUMMARY | 2024-09-01 15:55 | XMS_ITS | Clinical Summary ---
Author Organization [facility] Address [address] [place] [id number] Phone Care Team Providers Care Regulatory And Compliance Technician Name Role Phone Yodit Neff MD Primary Care Provider [phone] Surgical History Surgery Date Site/Laterality Comments STEREOTACTIC [...] Signed Date: 05/05/2024 16:56 ET Workstation ID: [id number] Transcribed By: Self Edit Transcribed Date: 05/05/2024 [...] Signed Date: 05/05/2024 16:56 ET Workstation ID: [id number] Transcribed By: Self Edit Transcribed Date: 05/05/2024 16:44 ET us Self Referral Sppl IMG BI PROCEDURES Final Resul t from Last 3 Months or Most Recently Relevant to Health Maintenance Insurance MEDICARE [facility] Care Teams Regulatory And Compliance Technician Relationship Specialty Start Date End Date Yodit Neff MD [address] [place] [address] [address] [facility] [place] [address] PCP - General Internal Medicine 05/05/24
[2024-09-01 16:04] VITALS: BP 160/78; PULSE 65; TEMP 36.2; O2SAT 96; BMI 46.4
--- NOTE | 2024-09-01 16:04 | MHC.PC.OV ---
Vital Signs 09/01/24 16:04 Height 5 ft 1 in Blood Pressure Location Lt brachial Position Sitting Pulse Source Pulse Oximeter Temp Source Temporal Artery Scan Oxygen Delivery Method Room Air Intake Visit Reasons: 3 month f/u Allergies No Known Allergies Allergy (Verified 06/22/24 15:49) Tobacco use date assessed: 06/22/24 Dental Screening Dental Screen Date: 06/23/23 [facility] Medical History Knee osteoarthritis Colonoscopy refused Arthritis of left knee Preop exam for internal medicine Right knee pain Arthritis of right knee Colon cancer screening Frequency of micturition Obesity Hypercholesterolemia Hypertension Surgical History Hx of right knee surgery (~07/26/23) Hx of lumpectomy History of breast lump/mass excision History of laparoscopic cholecystectomy History of umbilical hernia repair History of appendectomy Family History Father Stomach cancer Mother No problems noted. Social History Household Members: Spouse Housing: House Are you a primary hearing healthcare practitioner to a significant other at home: No Do you presently have visiting nurse or other home services: No Alcohol intake: never Comment: glass of wine once Q 2 months Patient Tobacco Use Status: Former Tobacco user Tobacco use type: Cigarette Years Smoked: quit 1979 e-Cigarette/Vaping Use: Never Used Second Hand Smoke Exposure: No service: No Current occupational status: retired Current occupation: rt hand Cognitive needs: No Hearing needs: No Vision needs: Yes Questionnaire PHQ-9 Over the last 2 weeks, how often have you been bothered by any of the following problems? 1. Little interest or pleasure in doing things: not at all 2. Feeling down, depressed, or hopeless: not at all 3. Trouble falling or staying asleep, or sleeping too much: not at all 4. Feeling tired or having little energy: not at all 5. Poor appetite or overeating: not at all 6. Feeling bad about yourself - or that you are a failure or have let yourself or your family down: not at all 7. Trouble concentrating on things, such as reading the newspaper or watching television: not at all 8. Moving or speaking so slowly that other people could have noticed. Or the opposite - being so fidgety or restless that you have been moving around a lot more than usual: not at all 9. Thoughts that you would be better off or of hurting yourself in some way: not at all Total score: 0 Source: Developed by Drs. Regis Holliday, Cristela Velásquez, Solomon Villalobos and colleagues, with an educational jung from [employer]. Thrive Questionnaire Date Thrive assessed: 06/22/24 I am a: Patient What is your living situation today?: I have a steady place to live Within the past 12 months, did the food you bought not last and you didn't have the money to get more?: Never true Within the past 12 months, did you worry whether your food would run out before you got money to buy more?: Never true Do you have trouble paying for medicines?: No Do you have trouble getting transportation to medical appointments?: No Do you have trouble paying your heating and electricity bill?: No Do you have trouble taking care of your child, family member or friend?: No Do you have trouble with day-to-day activities such as bathing, preparing meals, shopping, managing finances, etc.?: No Are you currently unemployed and looking for a job?: No Are you interested in more education?: No Please select the resources that you would like help with: None Currently or been in a relationship where the following occur: No concerns reported THRIVE Score: 0 AUDIT C Alcohol Use Questionnaire (AUDIT-C) 1. How often do you have a drink containing alcohol?: Never Total Score: 0 JACKIE-7 AMB Questionnaire JACKIE-7 Date JACKIE - 7 assessed: 06/22/24 Feeling nervous, anxious, or on edge: 0 = Not at all Not being able to stop or control worryin = Not at all Worrying too much about different things: 0 = Not at all Trouble relaxin = Not at all Being so restless that it is hard to sit still: 0 = Not at all Becoming easily annoyed or irritable: 0 = Not at all Feeling afraid as if something awful might happen: 0 = Not at all Total JACKIE-7 score (0-4 normal; 5-9 mild; 10-14 moderate; 15-21 severe): 0 Source: Developed by Drs. Regis Holliday, Cristela Velásquez, Solomon Villalobos and colleagues, with an educational jung from [employer]. Physical exam (Primary Care) Tobacco/Smoking Status: Tobacco use Status Tobacco use date assessed 06/22/24 06/22/24 15:51 Patient Tobacco Use Status Former Tobacco user 06/22/24 15:41 Tobacco use type Cigarette 06/22/24 15:41 e-Cigarette/Vaping Use Never Used 06/22/24 15:41 Thrive Assessment: Date of Thrive Assessment Date Thrive assessed 06/22/24 06/22/24 15:41 Currently or been in a relationship where the following occur: No concerns reported Coding
--- NOTE | 2024-09-01 16:06 | AM.OFFVISMDC ---
Intake Vital Signs 09/01/24 16:04 09/01/24 16:13 Height 5 ft 1 in Weight 245 lb 6 oz BMI 46.4 46.4 BP 160/78 H Blood Pressure Location Lt brachial Position Sitting Pulse 65 Pulse Source Pulse Oximeter Temp 97.1 F Temp Source Temporal Artery Scan Pulse Oximetry (%) 96 Oxygen Delivery Method Room Air Intake Visit Reasons: 3 month f/u Sales Assistant Displays Required: No Accompanied by: Spouse Allergies No Known Allergies Allergy (Verified 09/01/24 16:11) PFSH Medical History Knee osteoarthritis Colonoscopy refused Arthritis of left knee Preop exam for internal medicine Right knee pain Arthritis of right knee Colon cancer screening Frequency of micturition Obesity Hypercholesterolemia Hypertension Surgical History Hx of right knee surgery (~07/26/23) Hx of lumpectomy History of breast lump/mass excision History of laparoscopic cholecystectomy History of umbilical hernia repair History of appendectomy Family History Father Stomach cancer Mother No problems noted. Social History Household Members: Spouse Housing: House Are you a primary day care home provider to a significant other at home: No Do you presently have visiting nurse or other home services: No Alcohol intake: never Comment: glass of wine once Q 2 months Patient Tobacco Use Status: Former Tobacco user Tobacco use type: Cigarette Years Smoked: quit 1979 e-Cigarette/Vaping Use: Never Used Second Hand Smoke Exposure: No service: No Current occupational status: retired Current occupation: rt hand Cognitive needs: No Hearing needs: No Vision needs: Yes Questionnaire Medicare Wellness Checkup [age] What gender do you identify with?: female During the past 4 weeks, how much have you been bothered by emotional problems such as feeling anxious, depressed, irritable, sad or downhearted, and blue?: not at all During the past 4 weeks, has your physical & emotional health limited your social activities with family, friends, neighbors, or groups?: not at all During the past 4 weeks, how much bodily pain have you generally had?: no pain During the past 4 weeks, was someone available to help you if you needed & wanted help?: yes, as much as I wanted During the past 4 weeks, what was the hardest physical activity you could do for at least 2 minutes?: moderate Can you get to places out of walking distance without help? (For eg., can you travel alone on buses, taxis or drive your car?): Yes Can you go shopping for groceries or clothes without someone's help?: Yes Can you prepare your own meals?: Yes Can you do your housework without help?: Yes Because of any health problems, do you need the help of another person with your personal care needs such as eating, bathing, dressing or getting around the house?: No Can you handle your own money without help?: Yes During the past 4 weeks, how would you rate your health in general?: very good During the past 4 weeks how have things been going for you?: very well; could hardly better Are you having difficulties driving your car?: no Do you always fasten your seat belt when you are in a car?: yes, usually During past 4 weeks, have you been bothered by the following: never: Falling or dizzy when standing up, Sexual problems?, Trouble eating well?, Teeth or denture problems? and Problems using the telephone? and seldom: Tiredness or fatigue? Have you fallen 2 or more times in the past year?: No Are you afraid of falling?: No Are you a smoker?: no During the past 4 weeks, how many drinks of wine, beer, or other alcoholic beverages did you have?: no alcohol at all Do you exercise for about 20 minutes 3 or more times a week?: yes, most of the time Have you been given information to help with the following?: yes: Hazards in your house that might hurt you? and yes: Keeping track of your medications? How often do you have trouble taking medicines the way you have been told to take them?: I always take medicine as prescribed How confident are you that you can control & manage most of your health problems?: very confident What is your race?: White PHQ-9 Over the last 2 weeks, how often have you been bothered by any of the following problems? 1. Little interest or pleasure in doing things: not at all 2. Feeling down, depressed, or hopeless: not at all 3. Trouble falling or staying asleep, or sleeping too much: not at all 4. Feeling tired or having little energy: not at all 5. Poor appetite or overeating: not at all 6. Feeling bad about yourself - or that you are a failure or have let yourself or your family down: not at all 7. Trouble concentrating on things, such as reading the newspaper or watching television: not at all 8. Moving or speaking so slowly that other people could have noticed. Or the opposite - being so fidgety or restless that you have been moving around a lot more than usual: not at all 9. Thoughts that you would be better off or of hurting yourself in some way: not at all Total score: 0 Depression Screening Interpretation: Negative Depression Screening Done: Yes 24257 - PHQ-9 Billing: Yes Source: Developed by Drs. Regis Holliday, Cristela Velásquez, Solomon Villalobos and colleagues, with an educational jung from [employer]. Physical Exam Vital Signs: Last Vital Signs Temp 97.1 F 09/01/24 16:04 Pulse 65 09/01/24 16:04 BP 160/78 H 09/01/24 16:04 Pulse Ox 96 09/01/24 16:04 Oxygen Delivery Method Room Air 09/01/24 16:04 BMI result Body Mass Index 46.4 Const General: alert; No acute distress Eyes Conjunctivae: conjunctivae normal Resp Auscultation: clear to auscultation bilaterally Cardio Rate: regular rate Rhythm: regular rhythm GI Inspection: Yes normal to inspection Extrem General: Yes normal to inspection and No edema Assessment & Plan Assessment & Plan (1) Morbid obesity: Code(s): E66.01 - Morbid (severe) obesity due to excess calories Plan: Diet and exercise (2) Osteoarthritis of left knee: Code(s): M17.12 - Unilateral primary osteoarthritis, left knee Qualifiers: Osteoarthritis type: primary Qualified Code(s): M17.12 - Unilateral primary osteoarthritis, left knee Plan: Patient follows up with orthopedics and has had injections recently (3) Impaired glucose tolerance: Code(s): R73.02 - Impaired glucose tolerance (oral) Plan: Decrease the amount of carbohydrate intake, pasta, bread, rice and potatoes are all sugar and that is aside from all the sweet stuff, remember that fruits are good but they are Sweet also. (4) Generalized anxiety disorder: Comment: Decline any referral for counseling Code(s): F41.1 - Generalized anxiety disorder Plan: Continue with lorazepam as needed (5) Hypertension: Code(s): I10 - Essential (primary) hypertension Qualifiers: Hypertension type: primary hypertension Qualified Code(s): I10 - Essential (primary) hypertension Plan: Continue with blood pressure medication. Decrease salt intake and exercise on atenolol 25 mg once a day (6) Hypercholesterolemia: Code(s): E78.00 - Pure hypercholesterolemia, unspecified Plan: Avoid fried foods, chicken skin, eggs, butter margarine, pastries and meat. Be it pork or beef they have a lot of cholesterol LDL goal of less than 130 and triglyceride of less than 150 (7) Urinary incontinence: Code(s): R32 - Unspecified urinary incontinence Plan History of Present Illness The patient is a 74-year-old female presenting for a follow-up visit to address her chronic hypertension, generalized anxiety disorder, hypercholesterolemia, and osteoarthritis management. Morbid obesity contributes to her elevated blood pressure, which is currently managed with Atenolol 25 mg daily. The osteoarthritis of her left knee is treated with corticosteroid injections, providing relief for about three months, last administered in July 2024. Her prediabetes, with a blood sugar level recently at 118 mg/dL and a Hemoglobin A1c of 5.5, suggest effective management. Hypercholesterolemia with triglycerides at 170 mg/dL and LDL at 101 mg/dL is monitored, with diet and medication adjustments. Anxiety is maintained with lorazepam as needed. Normal renal, liver, complete blood count, and iron studies have been confirmed via August 31 blood work. She continues to monitor her blood sugar and cholesterol levels, and adjustments to current medications are being made with care. She reports urinary frequency, managed with Vesicare, with additional monitoring for potential side effects. Her engagement in regular follow-up with orthopedics and refusal for certain vaccines reflect her health management priorities. Health Maintenance - Routine blood work for monitoring prediabetes and cholesterol levels performed on August 31 showed normal liver function and renal function with stable hemoglobin A1c. - Annual mammogram is up to date. - Bone Density scan was last done in March 2022. - Regular follow-ups with orthopedics for osteoarthritis management. - Continues to decline the pneumonia vaccine. - Refusal of the shingles vaccine despite the benefits outlined. - Diabetes management through monitoring and lifestyle adjustments. - General discussion and management of generalized anxiety disorder symptoms. - Prescribed Vesicare to address overactive bladder concerns. Social History - The patient applies lifestyle modifications concerning diet and exercise to manage her health conditions. - Frequent follow-ups with healthcare providers as needed for chronic conditions. - Concerns about medication side effects and financial burden related to costs of incontinence supplies. - Functional limitations related to osteoarthritis leading to a reliance on mobility aids. Review of Systems - Cardiovascular: Reports well-managed hypertension. - Musculoskeletal: Reports knee pain managed with cortisone injections. - Endocrine: Reports controlled blood sugar and thyroid function. - Neuropsychiatric: Reports anxiety managed with lorazepam. - Genitourinary: Reports urinary frequency. - General: Denies any recent illness or significant changes in symptoms. Physical Exam Results - Laboratory: August 31 blood work: normal blood count, normal electrolytes, normal renal and liver function, hemoglobin A1c at 5.5, fasting glucose at 118 mg/dL, triglycerides at 170 mg/dL, LDL at 101 mg/dL. Vitamin B12, vitamin D, folic acid, and thyroid function are all within normal limits. - Procedures: Declined colonoscopy in June 2024. Mammogram up to date. Plan During the visit, I continued the patient's current hypertension management with atenolol and advised orthopedic follow-up for knee osteoarthritis. For hypercholesterolemia, lifestyle modification and medication target specific LDL and triglyceride levels. Prediabetes management includes regular glucose and A1c monitoring. The plan for managing anxiety involves the continued use of lorazepam as needed. Thyroid function remains stable. Vesicare was prescribed for urinary frequency, with follow-up on effectiveness. Vaccination recommendations were discussed, but the patient declined additional vaccines at this time. Patient was informed and verbally consented to the use of an ambient scribe for clinic note documentation during this visit. Discussion Notes I discussed with the patient the management of her chronic conditions including hypertension, hypercholesterolemia, and osteoarthritis. The importance of lifestyle changes and medication adherence was emphasized to manage her cholesterol and blood sugar levels. The patient was informed about the symptomatic relief provided by corticosteroid injections for osteoarthritis and the periodic follow-ups required. Risks and benefits of available vaccines were discussed, with the patient choosing not to proceed. Vesicare was prescribed for urinary frequency, and I explained its effects and potential side effects, including dryness. I advised regular monitoring and scheduled follow-up appointments to evaluate the effectiveness of the current interventions and adjust as necessary. The need for continued monitoring of anxiety symptoms with lorazepam was reiterated. Patient Instructions - Continue taking atenolol 25 mg once daily for blood pressure management. - Follow orthopedic recommendations for knee osteoarthritis, including planning for future injections if needed. - Maintain dietary and exercise efforts to manage cholesterol and blood glucose levels. - Monitor blood sugar and hemoglobin A1c regularly. - Take lorazepam as needed for anxiety management. - Begin Vesicare as prescribed for overactive bladder issues, and report any adverse effects. - Discuss any concerns or symptoms with me, or seek care if symptoms worsen. - Follow up with recommended lab work and orthopedic assessments. Orders: Referrals Urology Referral R32 - Unspecified urinary incontinence Medications: New solifenacin (Vesicare) 5 mg PO DAILY 30 tabs 0RF R32 - Unspecified urinary incontinence Refilled lorazepam 0.75 mg (1.5 x 0.5 mg) PO DAILY 135 tabs 2RF anxiety F41.1 - Generalized anxiety disorder Quality Reporting (2019) Depression/Bipolar (159/160/161/177) PHQ-9: Total score: 0 Coding Level of Care Code Est Pt Level 4 (37589) Diagnoses Morbid obesity E66.01 Primary osteoarthritis of left knee M17.12 Osteoarthritis type: primary Impaired glucose tolerance R73.02 Generalized anxiety disorder F41.1 Primary hypertension I10 Hypertension type: primary hypertension Hypercholesterolemia E78.00 Urinary incontinence R32 Additional Codes PHQ-9 - 80842 - PHQ-9 Billing: Yes ([id number])
[2024-09-01 16:13] VITALS: BMI 46.4
== END 2024-09-01 16:49 | disposition home or self-care (01) ==
PROVIDERS: PCP Internal Medicine; Visit Provider Internal Medicine
DX: M17.12 Unilateral primary osteoarthritis, left knee (principal); E66.01 Morbid (severe) obesity due to excess calories; Z68.42 Body mass index [BMI] 45.0-49.9, adult; R73.02 Impaired glucose tolerance (oral); F41.1 Generalized anxiety disorder; I10 Essential (primary) hypertension; E78.00 Pure hypercholesterolemia, unspecified; R32 Unspecified urinary incontinence

== ENCOUNTER → 2024-09-01 15:52 | Outpatient (BNVA) | payer MEDICARE, SELFPAY | PROVIDERS: PCP Internal Medicine; Visit Provider Internal Medicine | DX: E66.01 Morbid (severe) obesity due to excess calories (principal); M17.12 Unilateral primary osteoarthritis, left knee; R73.02 Impaired glucose tolerance (oral); F41.1 Generalized anxiety disorder; E78.00 Pure hypercholesterolemia, unspecified; I10 Essential (primary) hypertension; R32 Unspecified urinary incontinence | CPT/HCPCS: 96127; 99212 ==

== ENCOUNTER 2024-10-30 13:51 | Outpatient (AMB) | payer MEDICARE, SELFPAY ==
--- NOTE | 2024-10-30 13:51 | A.OFFVIS_ITS ---
Intake Visit Reasons: urinary incontinence Intake Note: New Patient is present for urinary incontinence Urology Rx:solifenacin Blood Thinners:none pvr:154 Psychiatry Teacher Required: No Accompanied by: Self / Same As Patient Allergies No Known Allergies Allergy (Verified 10/30/24 13:53) HPI Comments Details: Therese is a very pleasant 74-year-old female patient of Dr. Neff. She has a past medical history of osteoarthritis, obesity, hypercholesteremia, and hypertension. She presents to the office today as a new patient for ongoing lower urinary tract symptoms. In discussion with the patient today she reports having followed up with her PCP in discussing ongoing issues with nocturia as well as urinary urge and frequency at which time she was prescribed VESIcare 5 mg daily and recommendations were made for urology referral for further assessment evaluation. She does report noting significant improvement in lower urinary tract symptoms she had been experiencing since initiation of VESIcare. Unable to obtain urine for urinalysis today as patient unable to void however 154 mL. We did discuss slight increase in PVR. She does have a previous history of 1 vaginal . We did discussed potential causes of lower urinary tract symptoms patient is experiencing as well as further treatment options and risks and benefits of these treatment options. We discussed obtaining retroperitoneal ultrasound for further assessment evaluation. We also discussed follow-up with nursing in 2 weeks for reassessment of PVR. She denies hematuria, dysuria, foul smelling urine, changes to urinary stream, flank pain, fever, and or chills. She is happy with her current voiding parameters on VESIcare. We also discussed bladder triggers and irritants. All questions were answered. She discusses her upcoming beach trip in November as well as her previous right knee replacement here at [facility] over a year ago. She otherwise offers no other issues or concerns at this time. [facility] Medical History Knee osteoarthritis Colonoscopy refused Arthritis of left knee Preop exam for internal medicine Right knee pain Arthritis of right knee Colon cancer screening Frequency of micturition Obesity Hypercholesterolemia Hypertension Surgical History Hx of right knee surgery (~07/26/23) Hx of lumpectomy History of breast lump/mass excision History of laparoscopic cholecystectomy History of umbilical hernia repair History of appendectomy Family History Father Stomach cancer Mother No problems noted. Social History Household Members: Spouse Housing: House Are you a primary college and career counselor to a significant other at home: No Do you presently have visiting nurse or other home services: No Alcohol intake: never Comment: glass of wine once Q 2 months Patient Tobacco Use Status: Former Tobacco user Tobacco use type: Cigarette Years Smoked: quit 1979 e-Cigarette/Vaping Use: Never Used Second Hand Smoke Exposure: No service: No Current occupational status: retired Current occupation: rt hand Cognitive needs: No Hearing needs: No Vision needs: Yes Review of Systems Const All systems reviewed & are unremarkable except as noted in HPI and below Physical Exam Const General: cooperative, healthy appearing, comfortable, no acute distress, well developed, alert and awake Nutritional Appearance: overweight Orientation/consciousness: patient oriented x3 Limitations: ambulation with cane HEENT Head: Yes normal to inspection, Yes normocephalic and Yes atraumatic Ears: hearing grossly normal bilaterally Eyes General: appearance normal, both eyes and all related structures Neck Neck: Yes normal visual inspection and Yes trachea midline Chest Chest palpation & inspection: normal inspection of the chest Resp Effort & Inspection: normal respiratory effort and able to speak in complete sentences Cardio Rate: regular rate GI Inspection: Yes normal to inspection General: Yes no CVA tenderness Back/Spine/Pelvis Back: no CVA tenderness Skin General skin exam: no rashes or lesions noted Neuro General: patient oriented x3 Extrem General: Yes normal to inspection Psych Appearance: grossly normal and well kempt Mental Status: mental status grossly normal Speech and movement: Normal speech and movement present and Clear speech present Affect: normal affect Attitude: cooperative Thought process: Normal thought process present Thought content: Normal thought content present Insight: Fair insight present (Psych) Judgement: Fair judgement present (Psych) Assessment & Plan Assessment & Plan (1) Urinary urgency: Code(s): R39.15 - Urgency of urination Category: Medical (2) Nocturia: Code(s): R35.1 - Nocturia Category: Medical (3) Urge incontinence: Code(s): N39.41 - Urge incontinence Category: Medical Plan Unable to obtain urine for urinalysis as patient unable to void PVR 154 mL. Will continue VESIcare Will obtain retroperitoneal ultrasound for further assessment evaluation. We did discussed potential causes of lower urinary tract symptoms patient is experiencing as well as further treatment options and risks and benefits of these treatment options. We discussed bladder triggers and irritants. We discussed the importance of limiting fluids 2-3 hours prior to bed to decrease episodes of nocturia. Follow-up in 2 weeks with nursing for PVR Follow-up with provider in 3 months with imaging to be completed prior; or sooner with any issues, concerns, and or questions. Orders: Orders US retroperitoneal comp Today R35.1 - Nocturia, R39.15 - Urgency of urination Medications: Changed From solifenacin (Vesicare) 5 mg PO DAILY 90 tabs 2RF R32 - Unspecified urinary incontinence To solifenacin (Vesicare) This is an increase in dose 5 mg PO BID 180 tabs 0RF 90 days R32 - Unspecified urinary incontinence Patient Instructions: The patient had an opportunity to ask questions regarding the treatment plan. All questions were answered. Physical exam, labs, and imaging were discussed and reviewed in detail. As well as risks, benefits, and discussion of treatment choices. No major barriers to understanding were identified. The patient expressed understanding and agreement with the above treatment plan. The patient was made aware they should contact our office by phone for worsening of their current condition, the appearance of new symptoms, or with any questions or concerns. Compliance is encouraged with any medications and follow up testing that is ordered. It is a privilege to be allowed the opportunity to participate in? your urological care.? Again, if you have any questions or concerns If you have any questions or concerns please do not hesitate to contact me. The office is [phone]. This note is constructed using voice recognition software. While every effort has been made to ensure accuracy spring forger errors may have been included. Yours sincerely, JENNIFER Gasca Coding Level of Care Code New Pt Level 4 (43823) Diagnoses Urinary urgency R39.15 Nocturia R35.1 Urge incontinence N39.41
--- OUTSIDE RECORDS SUMMARY | 2024-10-30 15:04 | XMS_ITS | Patient Health Record ---
Author Organization [facility] Address [address] [place] [address] Care Team Providers Care Supervisor Cell Operation Name Role Phone Yodit Neff Primary Care Provider Mitchel Mclain Unavailable [phone] Reason For Referral No Information Medications Medication SIG (Take, Route, Fr equency, Duration) Notes Start Date End Date Status Aspir-81 81 MG 1 tablet Orally Once a day; Duration: 30 day(s) Active Centrum Silver as directed Orally Active Atenolol Active Ativan Active Ibuprofen 800 MG 1 tablet Orally Thre e times a day; Duration: 30 day(s) Active Amoxicillin 500 MG 1 capsule Orally lili ry 8 hrs; Duration: 10 day(s) Active Simvastatin Active Vitamin D 1000 UNIT 1 tablet Orally Once a day; Duration: 30 day(s) Active Problems Problem Type SNOMED Code ICD Code Onset Dates Problem Status W/U Status Risk Notes Problem Onychomycosis (290319001) Onychomycosis (110.1) Active confirmed Problem Pain in limb (26294134) Pain in Limb (729.5) Active confirmed Problem Achilles bursitis (191392786) Achilles Tendonitis Bursitis (726.71) Active confirmed Problem Calcaneal spur (54995288) Calcaneal spur (726.73) Active confirmed Problem Ingrowing nail (614132906) Ingrowing Nail (703.0) Active confirmed Plan Of Treatment Pending Test Test Name Order Date X ray : Foot, right 3V 09/09/2012 [id number] Plate 12/30/2010 [id number] Plate Each Additional Insurance Providers Payer Name Payer Address Payer Phone Subscriber Number Group Number Insured Name Patient Relationship to Insured Coverage Start Date Coverage End Date [facility] [address] [place] [address] [id number] Danilo Bartlett Spouse - patient is the spouse of the insured Medical (General) History Medical History History ICD Code hypertension hypercholesterolemia measles chicken pox
== END 2024-10-30 14:36 | disposition home or self-care (01) ==
LOC: HO.HUSH 13:52
PROVIDERS: PCP Internal Medicine; Visit Provider Nurse Practitioner Family
DX: R39.15 Urgency of urination (principal); R35.1 Nocturia; N39.41 Urge incontinence
CPT/HCPCS: 99204

== ENCOUNTER → 2024-10-30 13:51 | Outpatient (BNVA) | payer MEDICARE, SELFPAY | PROVIDERS: PCP Internal Medicine; Visit Provider Nurse Practitioner Family | DX: N39.41 Urge incontinence (principal); R35.1 Nocturia | CPT/HCPCS: 51798; 99202 ==

== ENCOUNTER 2024-11-14 10:59 | Outpatient (AMB) | payer MEDICARE, SELFPAY ==
[2024-11-14 11:15] VITALS: BMI 46.3
--- NOTE | 2024-11-14 11:15 | MHC.OFFVIS ---
Vital Signs 11/14/24 11:15 Height 5 ft 1 in Weight 245 lb BMI 46.3 Intake Visit Reasons: OV-left knee injection, last inj 07/26/24 Intake Note: Therese is a 74 year old female who presents today for follow up of their left knee osteoarthritis. She describes her left knee pain as sharp in nature. She has undergone right total knee replacement surgery in the past. She reports minimal discomfort in her right knee. She wishes to hold off on left total knee replacement surgery if at all possible. She has tried Tylenol and anti-inflammatory medicines which gave her mild relief. Allergies No Known Allergies Allergy (Verified 11/14/24 11:18) Medication List - Last Reconciled 11/14/24 by Joni Weir MD atenolol 25 mg PO DAILY fenofibrate 160 mg PO DAILY 90 days [Left KNEE BRACE As directed] lorazepam 0.75 mg (1.5 x 0.5 mg) PO DAILY bqyrfopk-ziz-HE-lycopen-lutein 0.4 mg-300 mcg- 250 mcg (Centrum Silver) 1 tab PO DAILY [QUAD CANE As directed] [rollator with seat As directed] simvastatin 10 mg PO BEDTIME solifenacin (Vesicare) 5 mg PO BID 90 days walker Folding front wheeled walker [facility] Medical History Knee osteoarthritis Colonoscopy refused Arthritis of left knee Preop exam for internal medicine Right knee pain Arthritis of right knee Colon cancer screening Frequency of micturition Obesity Hypercholesterolemia Hypertension Surgical History Hx of right knee surgery (~07/26/23) Hx of lumpectomy History of breast lump/mass excision History of laparoscopic cholecystectomy History of umbilical hernia repair History of appendectomy Family History Father Stomach cancer Mother No problems noted. Social History Household Members: Spouse Housing: House Are you a primary field care advocate to a significant other at home: No Do you presently have visiting nurse or other home services: No Alcohol intake: never Comment: glass of wine once Q 2 months Patient Tobacco Use Status: Former Tobacco user Tobacco use type: Cigarette Years Smoked: quit 1979 e-Cigarette/Vaping Use: Never Used Second Hand Smoke Exposure: No service: No Current occupational status: retired Current occupation: rt hand Cognitive needs: No Hearing needs: No Vision needs: Yes Physical Exam Vital Signs: BMI result Body Mass Index 46.3 Const Other: Well-nourished well-developed very friendly female awake alert and oriented x3 in no acute distress Extrem Other: Left knee examination shows a minimal effusion, palpable crepitus with range of motion, pain with range of motion, no instability Office Procedures AMB Joint Injection/Aspiration Joint Injection/Aspiration Primary Site: left knee Prep: site was prepped using aseptic technique Injected: 40 mg of, DepoMedrol and 1% plain lidocaine Procedure: The patient tolerated the procedure well Coding - Large joint Procedure code (CPT) selection complete Results Reviewed Results Reviewed: X-rays of the patient's left knee taken previously show joint space narrowing, subchondral sclerosis, no acute bony abnormalities Assessment & Plan Assessment & Plan (1) Osteoarthritis of left knee: Code(s): M17.12 - Unilateral primary osteoarthritis, left knee Category: Medical Qualifiers: Osteoarthritis type: primary Qualified Code(s): M17.12 - Unilateral primary osteoarthritis, left knee Plan Ms. Bartlett presents with left knee pain due to degenerative joint disease. The risks and benefits of a left knee cortisone injection were discussed at length with the patient. The patient wished to proceed. She tolerated the injection well. She will continue with her home exercise program. She will contact me prior to her follow-up appointment in 3 months should any questions or concerns arise. Feel free to call me at any time should questions regarding her orthopedic management arise. I spent 20 minutes in reviewing the patient's records and imaging studies, seeing the patient and documenting in the medical record. Orders: Orders AMB Joint Injection/Aspiration Today M17.12 - Unilateral primary osteoarthritis, left knee Coding Level of Care Code Est Pt Level 3 (06785) Complex EM visit Add On G2211 Diagnoses Primary osteoarthritis of left knee M17.12 Osteoarthritis type: primary CPT Codes Coding - 24807 Large joint: 68885 - Large joint ([id number])
--- OUTSIDE RECORDS SUMMARY | 2024-11-14 12:16 | XMS_ITS | Clinical Summary ---
Author Organization [facility] Address [address] [place] [id number] Phone Care Team Providers Care Flight Test Supervisor Name Role Phone Yodit Neff MD Primary Care Provider [phone] Surgical History Surgery Date Site/Laterality Comments STEREOTACTIC [...] 2) 1999 Colorectal Cancer Screening: Colonoscopy 03/17/2022 Falls Risk Assessment 03/17/2022 Hepatitis C Screening 03/17/2022 Medicare Annual Wellness Visit 03/17/2022 Osteoporosis Screening (Bone Density Screening) 03/17/2022 Social Influencers of Health Screening 03/17/2022 COVID-19 Vaccine ( season) 2023 01/23/2022, 02/08/2021, 07/15/2020, Additional history exists RSV Immunization Adult Patients (1 - 1-dose 75+ series) 01/15/2024 Depression Screening 04/19/2024 Influenza Vaccine (#1) 2024 Breast Cancer Screening Discontinued 05/05/19, 05/03/2023, [...] PM EST No mammographic evidence of malignancy. No suspicious interval change. A negative mammogram in the presence of a clinically suspicious palpable abnormality does not preclude the possibility of malignancy or alter the indications for biopsy. ASSESSMENT: BI-RADS 2: BENIGN RECOMMENDATION(S): 1: Routine screening mammogram BILATERAL in 1 year. -------- FINAL REPORT -------- Dictated By: Carlos Manuel Woodard Dictated Date: 05/05/2024 16:44 ET Assigned Physician: Carlos Manuel Woodard Reviewed and Electronically Signed By: Carlos Manuel Woodard Signed Date: 05/05/2024 16:56 ET Workstation ID: [id number] Transcribed By: Self Edit Transcribed Date: 05/05/2024 16:44 ET Narrative 05/05/2024 4:56 PM EST EXAM: SCREENING MAMMOGRAPHY, BILATERAL HISTORY: SCREENING. Scar upper areolar margin right breast. COMPARISON: 05/03/2023, 04/17/2022, 03/30/2021, 02/03/2020 TECHNIQUE: Synthesized CC and MLO projections of each breast. Tomosynthesis of each breast in the CC and MLO projections. ADDITIONAL IMAGING: None Computer-aided detection was employed with the [email or web address] AI 3-D. TISSUE DENSITY: The breasts are heterogeneously dense, which may obscure small masses. (BI-RADS category C) FINDINGS: RIGHT BREAST: No suspicious mass. No suspicious calcification. No distortion. There are stable diffuse round, punctate, amorphous and vascular calcifications. LEFT BREAST: No suspicious mass. No suspicious calcification. No distortion. Stable global asymmetry upper outer left breast. Stable diffuse round, punctate, amorphous and vascular calcifications. Procedure Note Carlos Manuel Woodard MD - 05/05/2024 EXAM: SCREENING MAMMOGRAPHY, BILATERAL HISTORY: SCREENING. Scar upper areolar margin right breast. COMPARISON: 05/03/2023, 04/17/2022, 03/30/2021, 02/03/2020 TECHNIQUE: Synthesized CC and MLO projections of each breast.Tomosynthesis of each breast in the CC and MLO projections. ADDITIONAL IMAGING: None Computer-aided detection was employed with the [email or web address] AI 3-D. TISSUE DENSITY: The breasts are [...] Signed Date: 05/05/2024 16:56 ET Workstation ID: [id number] Transcribed By: Self Edit Transcribed Date: 05/05/2024 16:44 ET us Self Referral Sppl IMG BI PROCEDURES Final Resul t from Last 3 Months or Most Recently Relevant to Health Maintenance Insurance MEDICARE [facility] Care Teams Flight Test Supervisor Relationship Specialty Start Date End Date Yodit Neff MD [address] [place] [address] [address] [facility] [place] [address] PCP - General Internal Medicine 05/05/24
== END 2024-11-14 11:56 | disposition home or self-care (01) ==
LOC: HO.HOS 10:59
PROVIDERS: PCP Internal Medicine; Visit Provider Orthopaedic Surgery
DX: M17.12 Unilateral primary osteoarthritis, left knee (principal)
CPT/HCPCS: 20610; 99213

== ENCOUNTER → 2024-11-14 10:59 | Outpatient (BNVA) | payer MEDICARE, SELFPAY | PROVIDERS: PCP Internal Medicine; Visit Provider Orthopaedic Surgery | DX: M17.12 Unilateral primary osteoarthritis, left knee (principal); Z96.651 Presence of right artificial knee joint | CPT/HCPCS: 20610; 99212; J1010; J2003 ==

== ENCOUNTER → 2024-12-11 13:06 | Outpatient (BNVA) | payer MEDICARE, SELFPAY | PROVIDERS: PCP Internal Medicine; Visit Provider Nurse Practitioner Family | DX: N39.41 Urge incontinence (principal); R35.1 Nocturia | CPT/HCPCS: 51798 ==

== ENCOUNTER 2025-01-15 10:39 | Outpatient (AMB) | payer MEDICARE, SELFPAY ==
--- NOTE | 2025-01-15 10:44 | AM.OFFVISMDC ---
Intake Vital Signs 01/15/25 10:54 Height 5 ft 1 in Weight 245 lb BMI 46.3 BP 130/72 Blood Pressure Location Lt brachial Position Sitting Pulse 74 Pulse Source Pulse Oximeter Pulse Oximetry (%) 98 Oxygen Delivery Method Room Air Intake Visit Reasons: awv Allergies No Known Allergies Allergy (Verified 01/15/25 10:54) Medication List - Last Reconciled 01/15/25 by Yodit Neff MD atenolol 25 mg PO DAILY fenofibrate 160 mg PO DAILY 90 days [Left KNEE BRACE As directed] lorazepam 0.75 mg (1.5 x 0.5 mg) PO DAILY ayltbjkf-dab-GR-lycopen-lutein 0.4 mg-300 mcg- 250 mcg (Centrum Silver) 1 tab PO DAILY [QUAD CANE As directed] [rollator with seat As directed] simvastatin 10 mg PO BEDTIME solifenacin (Vesicare) 5 mg PO BID 90 days walker Folding front wheeled walker HPI awv HPI Details [facility] Dr. Weir, [place] [facility] [place] [employer] Medical History Knee osteoarthritis Colonoscopy refused Arthritis of left knee Preop exam for internal medicine Right knee pain Arthritis of right knee Colon cancer screening Frequency of micturition Obesity Hypercholesterolemia Hypertension Surgical History Hx of right knee surgery (~07/26/23) Hx of lumpectomy History of breast lump/mass excision History of laparoscopic cholecystectomy History of umbilical hernia repair History of appendectomy Family History Father Stomach cancer Mother No problems noted. Social History (Updated 01/15/25 @ 11:31 by Yodit Neff MD) Household Members: Spouse Housing: House Are you a primary memory care program resident to a significant other at home: No Do you presently have visiting nurse or other home services: No Alcohol intake: current Alcohol intake frequency: does not drink Comment: glass of wine once 1-2 year a year Patient Tobacco Use Status: Former Tobacco user Tobacco use type: Cigarette Years Smoked: quit 1979 e-Cigarette/Vaping Use: Never Used Second Hand Smoke Exposure: No service: No Current occupational status: retired Current occupation: rt hand Cognitive needs: No Hearing needs: No Vision needs: Yes Questionnaire Medicare Wellness Checkup [age] What gender do you identify with?: female During the past 4 weeks, how much have you been bothered by emotional problems such as feeling anxious, depressed, irritable, sad or downhearted, and blue?: not at all During the past 4 weeks, has your physical & emotional health limited your social activities with family, friends, neighbors, or groups?: not at all During the past 4 weeks, how much bodily pain have you generally had?: moderate pain During the past 4 weeks, was someone available to help you if you needed & wanted help?: no, not at all During the past 4 weeks, what was the hardest physical activity you could do for at least 2 minutes?: light Can you get to places out of walking distance without help? (For eg., can you travel alone on buses, taxis or drive your car?): Yes Can you go shopping for groceries or clothes without someone's help?: Yes Can you prepare your own meals?: Yes Can you do your housework without help?: Yes Because of any health problems, do you need the help of another person with your personal care needs such as eating, bathing, dressing or getting around the house?: No Can you handle your own money without help?: Yes During the past 4 weeks, how would you rate your health in general?: good During the past 4 weeks how have things been going for you?: good & bad parts about equal Are you having difficulties driving your car?: no Do you always fasten your seat belt when you are in a car?: yes, sometimes During past 4 weeks, have you been bothered by the following: never: Falling or dizzy when standing up, Sexual problems?, Trouble eating well?, Teeth or denture problems?, Problems using the telephone? and Tiredness or fatigue? Have you fallen 2 or more times in the past year?: No Are you afraid of falling?: Yes Are you a smoker?: no During the past 4 weeks, how many drinks of wine, beer, or other alcoholic beverages did you have?: no alcohol at all Do you exercise for about 20 minutes 3 or more times a week?: no, I usually do not exercise this much Have you been given information to help with the following?: yes: Hazards in your house that might hurt you? and yes: Keeping track of your medications? How often do you have trouble taking medicines the way you have been told to take them?: I always take medicine as prescribed How confident are you that you can control & manage most of your health problems?: very confident What is your race?: White PHQ-9 Over the last 2 weeks, how often have you been bothered by any of the following problems? 1. Little interest or pleasure in doing things: not at all 2. Feeling down, depressed, or hopeless: not at all 3. Trouble falling or staying asleep, or sleeping too much: not at all 4. Feeling tired or having little energy: not at all 5. Poor appetite or overeating: not at all 6. Feeling bad about yourself - or that you are a failure or have let yourself or your family down: not at all 7. Trouble concentrating on things, such as reading the newspaper or watching television: not at all 8. Moving or speaking so slowly that other people could have noticed. Or the opposite - being so fidgety or restless that you have been moving around a lot more than usual: not at all 9. Thoughts that you would be better off or of hurting yourself in some way: not at all Total score: 0 Depression Screening Interpretation: Negative Depression Screening Done: Yes Source: Developed by Drs. Regis Holliday, Cristela Velásquez, Solomon Villalobos and colleagues, with an educational jung from [employer]. Review of Systems Const Denies poor appetite and Denies weakness Eyes Denies no additional complaints ENT Reports Normal hearing present, Denies dizziness, Denies nasal congestion, Denies tinnitus and Denies sore throat Card Denies chest pain, Denies syncope, Denies rapid heart rate and Denies dyspnea Resp Denies cough and Denies dyspnea GI Denies change in stool character, Reports constipation, Denies diarrhea, Denies nausea and Denies vomiting Denies urinary frequency, Denies difficulty voiding and Denies dysuria Neuro Reports Normal hearing present, Denies confusion, Denies dizziness, Denies syncope and Denies weakness Psych Denies confusion Physical Exam Vital Signs: Last Vital Signs Pulse 74 01/15/25 10:54 BP 130/72 09/29/25 10:54 Pulse Ox 98 01/15/25 10:54 Oxygen Delivery Method Room Air 01/15/25 10:54 BMI result Body Mass Index 46.3 Const General: No confusion Orientation/consciousness: No confusion HEENT Head: Yes normocephalic Ears: external ears normal and TM's normal bilaterally Face and sinus: Yes normal facial exam Mouth: moist mucous membranes Throat: Yes tonsils normal Eyes Conjunctivae: conjunctivae normal Pupils: Equal, round and reactive pupils present and Pupil accommodation reflex normal Direct Ophthalmoscopy: normal light reflex Neck Neck: No lymphadenopathy Thyroid: Thyroid normal Chest Chest palpation & inspection: normal inspection of the chest Resp Effort & Inspection: normal respiratory effort and no audible wheezes Auscultation: clear to auscultation bilaterally, no crackles, no wheezes and lung sounds not diminished Cardio Rate: regular rate Rhythm: regular rhythm Peripheral pulses: radial pulses present and dorsalis pedis present GI Palpation (GI): no masses Auscultation: normal bowel sounds and normoactive bowel sounds Rectal Exam - Female: deferred Skin General skin exam: no rashes or lesions noted Rashes: no rashes Neuro General: No confusion Cranial nerves: Yes Equal, round and reactive pupils present and Yes Normal hearing present Cognition (Neuro): normal cognition Gait exam (Neuro): Normal gait present Motor exam (neuro): 5/5 motor strength present throughout Deep tendon reflexes (DTR's): Right brachioradialis reflex intensity grade: 2+, Left brachioradialis reflex intensity grade: 2+, Right patellar reflex intensity grade: 2+ and Left patellar reflex intensity grade: 2+ Extrem General: No edema Assessment & Plan Assessment & Plan (1) Medicare annual wellness visit, subsequent: Code(s): Z00.00 - Encounter for general adult medical examination without abnormal findings Plan: Patient is advised to eat healthy, keep well hydrated, keep active and have adequate sleep. (2) Hypertension: Code(s): I10 - Essential (primary) hypertension Qualifiers: Hypertension type: primary hypertension Qualified Code(s): I10 - Essential (primary) hypertension Plan: Continue with blood pressure medication. Decrease salt intake and exercise patient on atenolol 25 mg once a day (3) Hypercholesterolemia: Code(s): E78.00 - Pure hypercholesterolemia, unspecified Plan: Avoid fried foods, chicken skin, eggs, butter margarine, pastries and meat. Be it pork or beef they have a lot of cholesterol on simvastatin 10 mg at bedtime last blood work was in August 2024 (4) Impaired glucose tolerance: Code(s): R73.02 - Impaired glucose tolerance (oral) Plan: Decrease the amount of carbohydrate intake, pasta, bread, rice and potatoes are all sugar and that is aside from all the sweet stuff, remember that fruits are good but they are Sweet also. (5) Age-related osteoporosis without current pathological fracture: Code(s): M81.0 - Age-related osteoporosis without current pathological fracture Plan: Discussed about repeating bone density (6) Morbid obesity: Code(s): E66.01 - Morbid (severe) obesity due to excess calories Plan: Diet and exercise (7) Generalized anxiety disorder: Comment: Decline any referral for counseling Code(s): F41.1 - Generalized anxiety disorder Plan: Continue with lorazepam as needed (8) Urge incontinence: Code(s): N39.41 - Urge incontinence Plan: Patient follows up with urology and has been placed on solifenacin (9) Osteoarthritis of left knee: Code(s): M17.12 - Unilateral primary osteoarthritis, left knee Qualifiers: Osteoarthritis type: primary Qualified Code(s): M17.12 - Unilateral primary osteoarthritis, left knee Plan: Keep active. Patient had injections of the left knee. Plan History of Present Illness The patient is a 75-year-old female presenting for an annual wellness visit. She has a history of hypertension, hypercholesterolemia, impaired glucose tolerance, generalized anxiety disorder, and osteoporosis. Her last bone density test was conducted in March 2022. The patient underwent a right knee replacement in July 2023 and reports ongoing issues with swelling and pain in the knee, which is affecting her mobility. She has been using ice and heat for pain management and has tried Tylenol and Voltaren gel with limited relief. She is considering stronger pain medications but is cautious due to potential side effects. The patient also reports urinary incontinence for which she is under urology care and has been prescribed Solifenacin. She has declined a colonoscopy but is up to date with her mammogram as of April 2024. Her blood work from August 2024 showed normal blood count, electrolytes, renal function, and liver function, with a blood sugar level of 118 mg/dL and LDL cholesterol of 101 mg/dL. Health Maintenance - Mammogram up to date as of April 2024 - Declined colonoscopy - Bone density discussed, last done in March 2022 - Blood work in August 2024 showed normal results with LDL cholesterol at 101 mg/dL - Vaccinations discussed: Shingles vaccine available, tetanus due this year, flu shot recommended in January, COVID-19 vaccine available Social History - Alcohol use: Drinks occasionally at weddings or holidays - Smoking: Quit smoking when daughter was [age] years old - Exercise: Limited due to knee pain, advised to keep active Review of Systems - General: Denies fever, chills, or weight loss - Cardiovascular: Denies chest pain, palpitations, or syncope - Respiratory: Denies dyspnea, cough, or wheezing - Gastrointestinal: Reports occasional heartburn, denies nausea, vomiting, or changes in bowel habits - Genitourinary: Reports urinary incontinence, denies dysuria or hematuria - Musculoskeletal: Reports knee pain and swelling, denies recent trauma - Neurological: Denies dizziness, headaches, or visual changes Physical Exam General: Cooperative, healthy appearing, comfortable, no acute distress and well developed Orientation: Patient oriented x3 Limitations: Limited due to left knee pain and swelling Head: Normal to inspection Ears: Hearing grossly normal bilaterally Nose: Normal external nose present Face and sinus: Normal facial exam Eyes: Appearance normal, both eyes and all related structures Neck: Normal visual inspection and Yes full ROM Respiratory: Normal respiratory effort and able to speak in complete sentences. Clear to auscultation bilaterally Cardiovascular: Regular rate and rhythm. Normal S1 and S2 GI: Normal to inspection. Soft to palpation and nontender Skin: No rashes or lesions noted, presence of skin tags Neuro: Patient oriented x3 Extremities: Left knee swollen and painful, limited ROM due to pain. Right knee status post replacement. Results - Labs: Normal blood count, electrolytes, renal function, liver function, blood sugar 118 mg/dL, LDL cholesterol 101 mg/dL, triglycerides 170 mg/dL, vitamin B12, vitamin D, folic acid, and thyroid function all within normal limits Plan Patient was informed and verbally consented to the use of an ambient scribe for clinic note documentation during this visit. 1. Essential Hypertension The patient is currently on Atenolol 25 mg once daily for hypertension management. Blood pressure was noted to be well-controlled during the visit. 2. Hypercholesterolemia The patient is on Simvastatin 10 mg at bedtime for cholesterol management. Recent lab results show LDL cholesterol at 101 mg/dL, indicating good control. 3. Impaired Glucose Tolerance Blood sugar was recorded at 118 mg/dL, and hemoglobin A1c was normal. Diet and exercise were discussed as part of the management plan. 4. Generalized Anxiety Disorder The patient is advised to continue Lorazepam as needed for anxiety management. 5. Osteoporosis Bone density was last assessed in March 2022, and a repeat test was discussed but deferred. 6. Status Post Right Knee Replacement The patient reports swelling and pain in the right knee, affecting mobility. An x-ray was recommended to evaluate the current status of the knee. 7. Urinary Incontinence The patient is under urology care and has been prescribed Solifenacin for management. 8. Obesity Weight management was discussed, with emphasis on diet and exercise. Discussion Notes During the visit, we discussed the management of hypertension with Atenolol and the control of cholesterol levels with Simvastatin. The patient was advised on the importance of diet and exercise in managing impaired glucose tolerance and obesity. We also reviewed the patient's current medications for anxiety and urinary incontinence, emphasizing adherence to prescribed treatments. Preventative care measures, including vaccinations and screenings, were discussed, with recommendations for a tetanus shot and flu vaccine. Patient Instructions - Continue taking Atenolol and Simvastatin as prescribed. - Follow the diet and exercise plan discussed to manage blood sugar and weight. - Use Solifenacin as directed for urinary incontinence. - Schedule an x-ray for the right knee to assess current condition. - Consider getting the tetanus and flu vaccines as recommended. Orders: Orders XR knee RT 2V Today Z96.651 - Presence of right artificial knee joint Medications: Refilled [rollator with seat] As directed 1 ea 0RF E66.01 - Morbid (severe) obesity due to excess calories Quality Reporting (2019) Depression/Bipolar (159/160/161/177) PHQ-9: Total score: 0 Coding Level of Care Code Medicare Subsequent (G0439) Diagnoses Medicare annual wellness visit, subsequent Z00.00 Primary hypertension I10 Hypertension type: primary hypertension Hypercholesterolemia E78.00 Impaired glucose tolerance R73.02 Age-related osteoporosis without current pathological fracture M81.0 Morbid obesity E66.01 Generalized anxiety disorder F41.1 Urge incontinence N39.41 Primary osteoarthritis of left knee M17.12 Osteoarthritis type: primary
[2025-01-15 10:54] VITALS: BP 130/72; PULSE 74; O2SAT 98; BMI 46.3
--- OUTSIDE RECORDS SUMMARY | 2025-01-15 11:58 | XMS_ITS | Patient Health Record ---
Author Organization [facility] Address [address] [place] [address] Care Team Providers Care Steel Worker Name Role Phone Yodit Neff Primary Care Provider Mitchel Mclain Unavailable [phone] Reason For Referral No Information Medications Medication [...] Status W/U Status Risk Notes Problem Onychomycosis (878655230) Onychomycosis (110.1) Active confirmed Problem Pain in limb (75335282) Pain in Limb (729.5) Active confirmed Problem Achilles bursitis (560884350) Achilles Tendonitis Bursitis (726.71) Active confirmed Problem Calcaneal spur (55850088) Calcaneal spur (726.73) Active confirmed Problem Ingrowing nail (933406060) Ingrowing Nail (703.0) Active confirmed Plan Of Treatment Pending Test Test Name Order Date X ray : Foot, right 3V 09/09/2012 51231-Guoxboyi Plate 12/30/2010 40237-Hagjuwfn Plate Each Additional Insurance Providers Payer Name Payer Address Payer Phone Subscriber Number Group Number Insured Name Patient Relationship to Insured Coverage Start Date Coverage End Date [facility] [address] [place] [address] [phone] [id number] Danilo Bartlett Spouse - patient is the spouse of the insured Medical (General) History Medical History History ICD Code hypertension hypercholesterolemia measles chicken pox
--- OUTSIDE RECORDS SUMMARY | 2025-01-15 11:58 | XMS_ITS | Clinical Summary ---
Author Organization [facility] Address [address] [place] [id number] Phone Care Team Providers Care Wedding Consultant Name Role Phone Yodit Neff MD Primary Care Provider [phone] Surgical History Surgery Date Site/Laterality Comments STEREOTACTIC [...] 03/17/2022 Social Influencers of Health Screening 03/17/2022 RSV Immunization Adult Patients (1 - 1-dose 75+ series) 01/15/2024 Depression Screening 04/19/2024 COVID-19 Vaccine (2024- season) 2024 01/23/2022, 02/08/2021, 07/15/2020, Additional history exists Influenza Vaccine (#1) 2024 Breast Cancer Screening [...] Signed Date: 05/05/2024 16:56 ET Workstation ID: [id number] Transcribed By: Self Edit Transcribed Date: 05/05/2024 16:44 ET Narrative 05/05/2024 4:56 PM EST EXAM: SCREENING MAMMOGRAPHY, BILATERAL HISTORY: SCREENING. Scar upper areolar margin right breast. COMPARISON: 05/03/2023, 04/17/2022, 03/30/2021, 02/03/2020 TECHNIQUE: Synthesized CC and MLO projections of each breast. Tomosynthesis of each breast in the CC and MLO projections. ADDITIONAL IMAGING: None Computer-aided detection was employed with the [employer] AI 3-D. TISSUE DENSITY: The breasts are [...] None Computer-aided detection was employed with the [employer] AI 3-D. TISSUE DENSITY: The breasts are [...] Signed Date: 05/05/2024 16:56 ET Workstation ID: [id number] Transcribed By: Self Edit Transcribed Date: 05/05/2024 16:44 ET us Self Referral Sppl IMG BI PROCEDURES Final Resul t from Last 3 Months or Most Recently Relevant to Health Maintenance Insurance MEDICARE [facility] Care Teams Wedding Consultant Relationship Specialty Start Date End Date Yodit Neff MD [address] [place] [address] [address] [facility] [place] [address] PCP - General Internal Medicine 05/05/24
== END 2025-01-15 11:53 | disposition home or self-care (01) ==
LOC: HO.HMCH 10:40
PROVIDERS: PCP Internal Medicine; Visit Provider Internal Medicine
DX: Z00.00 Encounter for general adult medical examination without abnormal findings (principal); I10 Essential (primary) hypertension; E66.01 Morbid (severe) obesity due to excess calories; E78.00 Pure hypercholesterolemia, unspecified; R73.02 Impaired glucose tolerance (oral); M81.0 Age-related osteoporosis without current pathological fracture; F41.1 Generalized anxiety disorder; N39.41 Urge incontinence; M17.12 Unilateral primary osteoarthritis, left knee

== ENCOUNTER 2025-01-23 11:22 | Outpatient (REF) | payer MEDICARE, SELFPAY ==
--- NOTE | ~2025-01-23 | XR_ITS ---
EXAMINATION: XR KNEE, RIGHT CLINICAL INFORMATION: Z96.651 - Presence of right artificial knee joint COMPARISON: August 12, 2023 TECHNIQUE: AP and lateral views of the right knee. FINDINGS: Skin marie have been removed since the prior study. Joint effusion has resolved. Prosthetic components of the total knee arthroplasty are appropriately aligned without periprosthetic fracture or abnormal lucency. No component migration. XR/XR knee RT 2V IMPRESSION: Unremarkable total knee arthroplasty, right Electronically signed by: Ronni Paniagua MD 01/23/2025 11:57 AM EDT
--- NOTE | ~2025-01-23 | US_ITS ---
CLINICAL HISTORY: R35.1 - Nocturia US Renal Comparison: None provided Findings: Right kidney normal size and echotexture, 10.7 cm length. Left kidney normal size and echotexture, 10.4 cm length. Benign cm cyst noted. No collecting system dilatation of either kidney. Normal color Doppler. Urinary bladder is unremarkable. Prevoid volume 245 mL. Postvoid volume 0 mL. Bilateral ureteral jets are visualized. IMPRESSION: 1. Normal kidneys. 2. No postvoid residual noted. This document has been electronically signed by: Pepe Lyons MD on 01/24/2025 10:49:02
--- OUTSIDE RECORDS SUMMARY | 2025-01-23 14:19 | XMS_ITS | Patient Health Record ---
Author Organization [facility] Address [address] [facility] [place] [address] Care Team Providers Care Diesel Scoop Operator Name Role Phone Yodit Neff Primary Care Provider Mitchel Mclain Unavailable [phone] Reason For Referral No Information Medications Medication [...] Status W/U Status Risk Notes Problem Onychomycosis (730302948) Onychomycosis (110.1) Active confirmed Problem Pain in limb (38034442) Pain in Limb (729.5) Active confirmed Problem Achilles bursitis (724489997) Achilles Tendonitis Bursitis (726.71) Active confirmed Problem Calcaneal spur (29089703) Calcaneal spur (726.73) Active confirmed Problem Ingrowing nail (179413686) Ingrowing Nail (703.0) Active confirmed Plan Of Treatment Pending Test Test Name Order Date X ray : Foot, right 3V 09/09/2012 [id number] Plate 12/30/2010 [id number]-Zhpspceu Plate Each Additional Insurance Providers Payer Name Payer Address Payer Phone Subscriber Number Group Number Insured Name Patient Relationship to Insured Coverage Start Date Coverage End Date [facility] [address] [place] [address] [phone] [id number] Danilo Bartlett Spouse - patient is the spouse of the insured Medical (General) History Medical History History ICD Code hypertension hypercholesterolemia measles chicken pox
--- OUTSIDE RECORDS SUMMARY | 2025-01-23 14:19 | XMS_ITS | Clinical Summary ---
Author Organization [facility] Address [address] [place] [phone] Phone Care Team Providers Care Head Housekeeper Name Role Phone Yodit Neff MD Primary Care Provider [phone] Surgical History Surgery Date Site/Laterality Comments STEREOTACTIC [...] 1999 Zoster Vaccines (1 of 2) 1999 Falls Risk Assessment 03/17/2022 Hepatitis C Screening 03/17/2022 Medicare Annual Wellness Visit 03/17/2022 Osteoporosis Screening (Bone Density Screening) 03/17/2022 Social Influencers of Health Screening 03/17/2022 RSV Immunization Adult Patients (1 - 1-dose 75+ series) 01/15/2024 Depression Screening 04/19/2024 COVID-19 Vaccine ( season) 2024 01/23/2022, 02/08/2021, 07/15/2020, Additional history [...] Signed Date: 05/05/2024 16:56 ET Workstation ID: [id number] Transcribed By: Self Edit Transcribed Date: 05/05/2024 16:44 ET Narrative 05/05/2024 4:56 PM EST EXAM: SCREENING MAMMOGRAPHY, BILATERAL HISTORY: SCREENING. Scar upper areolar margin right breast. COMPARISON: 05/03/2023, 04/17/2022, 03/30/2021, 02/03/2020 TECHNIQUE: Synthesized CC and MLO projections of each breast. Tomosynthesis of each breast in the CC and MLO projections. ADDITIONAL IMAGING: None Computer-aided detection was employed with the [employer] AI 3-D. TISSUE DENSITY: The breasts are [...] None Computer-aided detection was employed with the [employer] AI 3-D. TISSUE DENSITY: The breasts are [...] Signed Date: 05/05/2024 16:56 ET Workstation ID: [id number] Transcribed By: Self Edit Transcribed Date: 05/05/2024 16:44 ET us Self Referral Sppl IMG BI PROCEDURES Final Resul t from Last 3 Months or Most Recently Relevant to Health Maintenance Insurance MEDICARE [facility] Care Teams Head Housekeeper Relationship Specialty Start Date End Date Yodit Neff MD [address] [place] [address] [address] [facility] [place] [address] PCP - General Internal Medicine 05/05/24
== END 2025-01-23 11:23 | disposition home or self-care (01) ==
LOC: HO.HMGCX 11:22
PROVIDERS: Absent Provider Internal Medicine; PCP Internal Medicine; Visit Provider Nurse Practitioner Family
DX: R35.1 Nocturia (principal); R39.15 Urgency of urination; Z96.651 Presence of right artificial knee joint
CPT/HCPCS: 73560; 76770

== ENCOUNTER → 2025-01-23 11:27 | Outpatient (BNV) | payer MEDICARE, SELFPAY | PROVIDERS: Absent Provider Internal Medicine; PCP Internal Medicine; Visit Provider Radiology Diagnostic Radiology | DX: R35.1 Nocturia (principal) | CPT/HCPCS: 76770 ==

== ENCOUNTER 2025-01-31 07:04 | Outpatient (REF) | payer MEDICARE, SELFPAY ==
--- OUTSIDE RECORDS SUMMARY | 2025-01-31 07:06 | XMS_ITS | Clinical Summary ---
Author Organization [facility] Address [address] [place] [phone] Phone Care Team Providers Care Applied Behavior Science Specialist Name Role Phone Yodit Neff MD Primary Care Provider [phone] Surgical History Surgery Date Site/Laterality Comments STEREOTACTIC [...] Signed Date: 05/05/2024 16:56 ET Workstation ID: [id number] Transcribed By: Self Edit Transcribed Date: 05/05/2024 16:44 ET Narrative 05/05/2024 4:56 PM EST EXAM: SCREENING MAMMOGRAPHY, BILATERAL HISTORY: SCREENING. Scar upper areolar margin right breast. COMPARISON: 05/03/2023, 04/17/2022, 03/30/2021, 02/03/2020 TECHNIQUE: Synthesized CC and MLO projections of each breast. Tomosynthesis of each breast in the CC and MLO projections. ADDITIONAL IMAGING: None Computer-aided detection was employed with the [employer] AI 3-D. TISSUE DENSITY: The breasts are [...] None Computer-aided detection was employed with the [employer] AI 3-D. TISSUE DENSITY: The breasts are [...] Signed Date: 05/05/2024 16:56 ET Workstation ID: [id number] Transcribed By: Self Edit Transcribed Date: 05/05/2024 16:44 ET us Self Referral Sppl IMG BI PROCEDURES Final Resul t from Last 3 Months or Most Recently Relevant to Health Maintenance Insurance MEDICARE [facility] Care Teams Applied Behavior Science Specialist Relationship Specialty Start Date End Date Yodit Neff MD [address] [place] [address] [address] [facility] [place] [address] PCP - General Internal Medicine 05/05/24
--- OUTSIDE RECORDS SUMMARY | 2025-01-31 07:06 | XMS_ITS | Patient Health Record ---
Author Organization [facility] Address [address] [facility] [place] [address] Care Team Providers Care Bariatric Surgeon Name Role Phone Yodit Neff Primary Care Provider Mitchel Mclain Unavailable [phone] Reason For Referral No Information Medications Medication [...] Status W/U Status Risk Notes Problem Onychomycosis (408468926) Onychomycosis (110.1) Active confirmed Problem Pain in limb (14796662) Pain in Limb (729.5) Active confirmed Problem Achilles bursitis (470508521) Achilles Tendonitis Bursitis (726.71) Active confirmed Problem Calcaneal spur (43236908) Calcaneal spur (726.73) Active confirmed Problem Ingrowing nail (624699737) Ingrowing Nail (703.0) Active confirmed Plan Of Treatment Pending Test Test Name Order Date X ray : Foot, right 3V 09/09/2012 [id number] Plate 12/30/2010 22800-Hbfbwcpv Plate Each Additional Insurance Providers Payer Name Payer Address Payer Phone Subscriber Number Group Number Insured Name Patient Relationship to Insured Coverage Start Date Coverage End Date [facility] [address] [place] [address] [phone] [id number] Danilo Bartlett Spouse - patient is the spouse of the insured Medical (General) History Medical History History ICD Code hypertension hypercholesterolemia measles chicken pox
== END 2025-01-31 07:05 | disposition home or self-care (01) ==
LOC: HO.HOSX 07:04
PROVIDERS: Visit Provider Orthopaedic Surgery
DX: M25.561 Pain in right knee (principal)
CPT/HCPCS: 99212

== ENCOUNTER 2025-01-31 11:35 | Outpatient (AMB) | payer MEDICARE, SELFPAY ==
--- NOTE | 2025-01-31 11:43 | A.OFFVIS_ITS ---
Vital Signs 01/31/25 11:48 Height 5 ft 1 in Weight 245 lb BMI 46.3 Intake Visit Reasons: Right leg and knee pain Intake Note: Therese is a 75 year old female who presents with complaints of intermittent pain in her right thigh and right knee after undergoing right total knee replacement surgery on 07/26/2023. The patient also reports intermittent low back pain. She states that she was recently seen by a chiropractor who told her that she might have ?a pinched nerve? in her low back. The chiropractic treatment did help her back pain somewhat. She also reports intermittent weakness in her right leg. She denies any fevers or chills. The patient states that she is not interested in getting an MRI because of her claustrophobia. Allergies No Known Allergies Allergy (Verified 01/31/25 11:48) Medication List - Last Reconciled 01/31/25 by Joni Weir MD atenolol 25 mg PO DAILY fenofibrate 160 mg PO DAILY 90 days [Left KNEE BRACE As directed] lorazepam 0.75 mg (1.5 x 0.5 mg) PO DAILY pzhjsdfn-obh-IU-lycopen-lutein 0.4 mg-300 mcg- 250 mcg (Centrum Silver) 1 tab PO DAILY [QUAD CANE As directed] [rollator with seat As directed] simvastatin 10 mg PO BEDTIME solifenacin (Vesicare) 5 mg PO BID 90 days walker Folding front wheeled walker [facility] Medical History Knee osteoarthritis Colonoscopy refused Arthritis of left knee Preop exam for internal medicine Right knee pain Arthritis of right knee Colon cancer screening Frequency of micturition Obesity Hypercholesterolemia Hypertension Surgical History Hx of right knee surgery (~07/26/23) Hx of lumpectomy History of breast lump/mass excision History of laparoscopic cholecystectomy History of umbilical hernia repair History of appendectomy Family History Father Stomach cancer Mother No problems noted. Social History (Updated 01/15/25 @ 11:31 by Yodit Neff MD) Household Members: Spouse Housing: House Are you a primary chronic care nurse to a significant other at home: No Do you presently have visiting nurse or other home services: No Alcohol intake: current Alcohol intake frequency: does not drink Comment: glass of wine once 1-2 year a year Patient Tobacco Use Status: Former Tobacco user Tobacco use type: Cigarette Years Smoked: quit 1979 e-Cigarette/Vaping Use: Never Used Second Hand Smoke Exposure: No service: No Current occupational status: retired Current occupation: rt hand Cognitive needs: No Hearing needs: No Vision needs: Yes Physical Exam Vital Signs: BMI result Body Mass Index 46.3 Extrem Other: Right knee examination shows that the surgical incision is well healed, no erythema, full active extension and flexion to 115 degrees with minimal discomfort, her patella tracks well, no instability Results Reviewed Results Reviewed: X-rays of the patient's right knee taken on 01/23/2025 show a total knee arthroplasty in good position with no signs of loosening, no acute bony abnormalities Assessment & Plan Assessment & Plan (1) Right knee pain: Code(s): M25.561 - Pain in right knee Category: Medical Plan Ms. Bartlett presents with continued right knee pain after undergoing right total knee arthroplasty last year of unclear etiology. At this point she does not have any indication of an infectious process. The patient may be a candidate for a nerve stimulation procedure so I will refer her to Dr. Mathis from our pain management department. I did recommend that the patient continue with her weight loss program. I also recommended that she get an MRI of her lumbar spine but she wishes to hold off on the MRI at this time because of her claustrophobia. She will contact me prior to her annual follow-up appointment should any questions or concerns arise. I spent 21 minutes in reviewing the patient's records and imaging studies, seeing the patient and documenting in the medical record. Orders: Referrals Pain Management Referral M25.561 - Pain in right knee Coding Level of Care Code Est Pt Level 3 (48740) Complex EM visit Add On G2211 Diagnoses Right knee pain M25.561
[2025-01-31 11:48] VITALS: BMI 46.3
== END 2025-01-31 12:00 | disposition home or self-care (01) ==
LOC: HO.HOS 11:36
PROVIDERS: PCP Internal Medicine; Visit Provider Orthopaedic Surgery
DX: M25.561 Pain in right knee (principal)
CPT/HCPCS: 99213; G2211

== ENCOUNTER 2025-02-06 11:22 | Outpatient (AMB) | payer MEDICARE, SELFPAY ==
--- NOTE | 2025-02-06 11:35 | A.OFFVIS_ITS ---
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 Neff. She has a past medical history of osteoarthritis, obesity, hypercholesteremia, and hypertension. She presents to the office today as a new patient for ongoing lower urinary tract symptoms. In discussion with the patient today she reports significant improvement in nocturia, urinary urgency, and urinary frequency with increase in VESIcare. She does report noting dry mouth however feels she is managing this well as she is extremely happy with her urinary parameters at this time. Most recent retroperitoneal ultrasound results reviewed with the patient today. Bilateral kidneys with no collecting system dilatation. Benign left renal cysts. The urinary bladder is unremarkable. Postvoid bladder volume 0 mL. She discusses her ongoing issues with right knee pain and has been following up with orthopedics as well as an upcoming appointment with tristan perez for further assessment evaluation. She also reports having followed up with her PCP to further assess potential accessibility to GLP-1 for weight loss however she is going to attempt lifestyle modifications. In office urinalysis results reviewed with the patient today. PVR 0 mL. She does have a previous history of 1 vaginal . We did discuss potential causes of lower urinary tract symptoms patient is experiencing as well as further treatment options and risks and benefits of these treatment options. She denies hematuria, dysuria, foul smelling urine, changes to urinary stream, flank pain, fever, and or chills. She is happy with her current voiding parameters on VESIcare. We also discussed bladder triggers and irritants. All questions were answered. She otherwise offers no other issues or concerns at this time. [facility] Medical History Knee osteoarthritis Colonoscopy refused Arthritis of left knee Preop exam for internal medicine Right knee pain Arthritis of right knee Colon cancer screening Frequency of micturition Obesity Hypercholesterolemia Hypertension Surgical History Hx of right knee surgery (~07/26/23) Hx of lumpectomy History of breast lump/mass excision History of laparoscopic cholecystectomy History of umbilical hernia repair History of appendectomy Family History Father Stomach cancer Mother No problems noted. Social History (Updated 01/15/25 @ 11:31 by Yodit Neff MD) Household Members: Spouse Housing: House Are you a primary direct support professional caregiver to a significant other at home: No Do you presently have visiting nurse or other home services: No Alcohol intake: current Alcohol intake frequency: does not drink Comment: glass of wine once 1-2 year a year Patient Tobacco Use Status: Former Tobacco user Tobacco use type: Cigarette Years Smoked: quit 1979 e-Cigarette/Vaping Use: Never Used Second Hand Smoke Exposure: No service: No Current occupational status: retired Current occupation: rt hand Cognitive needs: No Hearing needs: No Vision needs: Yes Review of Systems Const All systems reviewed & are unremarkable except as noted in HPI and below Physical Exam Const General: cooperative, healthy appearing, comfortable, no acute distress, well developed, alert and awake Nutritional Appearance: overweight Orientation/consciousness: patient oriented x3 Limitations: ambulation with cane HEENT Head: Yes normal to inspection, Yes normocephalic and Yes atraumatic Ears: hearing grossly normal bilaterally Eyes General: appearance normal, both eyes and all related structures Neck Neck: Yes normal visual inspection and Yes trachea midline Chest Chest palpation & inspection: normal inspection of the chest Resp Effort & Inspection: normal respiratory effort and able to speak in complete sentences Cardio Rate: regular rate GI Inspection: Yes normal to inspection General: Yes no CVA tenderness Back/Spine/Pelvis Back: no CVA tenderness Skin General skin exam: no rashes or lesions noted Neuro General: patient oriented x3 Extrem General: Yes normal to inspection Psych Appearance: grossly normal and well kempt Mental Status: mental status grossly normal Speech and movement: Normal speech and movement present and Clear speech present Affect: normal affect Attitude: cooperative Thought process: Normal thought process present Thought content: Normal thought content present Insight: Fair insight present (Psych) Judgement: Fair judgement present (Psych) Office Procedures Post Void Residual Post Residual Void Post Void Residual (PVR): 0 [id number]-Qcps Void Residual by ultrasound Results AMB Urinalysis, Automated UA Leukoctes 70 Andrés/uL Last Edit by SARAH Morton on 02/06/25 12:05 UA Nitrite Negative Last Edit by SARAH Morton on 02/06/25 12:05 UA Urobilinogen 0.2 mg/dL Last Edit by SARAH Morton on 02/06/25 12:0 5 UA Protein 15 mg/dL Last Edit by SARAH Morton on 02/06/25 12:05 UA pH 6.0 Last Edit by SARAH Morton on 02/06/25 12:05 UA Blood 0 Michael/uL Last Edit by SARAH Morton on 02/06/25 12:05 UA Specific [place] 1.020 Last Edit by SARAH Morton on 02/06/25 12: 05 UA Ketone Negative Last Edit by SARAH Morton on 02/06/25 12:05 UA Bilirubin 0 mg/dL Last Edit by SARAH Morton on 02/06/25 12:05 UA Glucose 0 mg/dL Last Edit by SARAH Morton on 02/06/25 12:05 Results Reviewed Results Reviewed: Laboratory Last Values Urine pH (Auto) 6.0 02/06/25 12:05 Specific [place] (Auto) 1.020 02/06/25 12:05 Urine Protein (Auto) 15 mg/dL 02/06/25 12:05 Glucose (UA)(Auto) 0 mg/dL 02/06/25 12:05 Urine Ketones (Auto) Negative 02/06/25 12:05 Urine Blood (Auto) 0 Michael/uL 02/06/25 12:05 Urine Nitrite (Auto) Negative 02/06/25 12:05 Urine Bilirubin (Auto) 0 mg/dL 02/06/25 12:05 Urine Urobilinogen (Auto) 0.2 mg/dL 02/06/25 12:05 Leukocyte Esterase (Auto) 70 Andrés/uL 02/06/25 12:05 Date of Service: 01/23/25 Procedure(s): US retroperitoneal comp Findings: Right kidney normal size and echotexture, 10.7 cm length. Left kidney normal size and echotexture, 10.4 cm length. Benign cm cyst noted. No collecting system dilatation of either kidney. Normal color Doppler. Urinary bladder is unremarkable. Prevoid volume 245 mL. Postvoid volume 0 mL. Bilateral ureteral jets are visualized. IMPRESSION: 1. Normal kidneys. 2. No postvoid residual noted. Assessment & Plan Assessment & Plan (1) Urinary urgency: Code(s): R39.15 - Urgency of urination Category: Medical (2) Nocturia: Code(s): R35.1 - Nocturia Category: Medical (3) Urge incontinence: Code(s): N39.41 - Urge incontinence Category: Medical Plan In office urinalysis results reviewed with the patient today; as noted above. PVR 0 mL Recent retroperitoneal ultrasound results reviewed with the patient today; as noted above. She reports be happy with current voiding parameters will continue VESIcare; refill provided We did discussed potential causes of lower urinary tract symptoms patient is exp eriencing as well as further treatment options and risks and benefits of these treatment options. We discussed bladder triggers and irritants. We discussed the importance of limiting fluids 2-3 hours prior to bed to decrease episodes of nocturia. Follow-up in 6 months with PVR; or sooner with any issues, concerns, and or questions. Orders: Orders AMB Urinalysis Automated Today Z13.9 - Encounter for screening, unspecified Medications: Changed From solifenacin (Vesicare) This is an increase in dose 5 mg PO BID 180 tabs 0RF 90 days R32 - Unspecified urinary incontinence To solifenacin (Vesicare) [id number] [facility] [id number] Member [id number] 5 mg PO BID 180 tabs 0RF 90 days R32 - Unspecified urinary incontinence Patient Instructions: The patient had an opportunity to ask questions regarding the treatment plan. All questions were answered. Physical exam, labs, and imaging were discussed and reviewed in detail. As well as risks, benefits, and discussion of treatment choices. No major barriers to understanding were identified. The patient expressed understanding and agreement with the above treatment plan. The patient was made aware they should contact our office by phone for worsening of their current condition, the appearance of new symptoms, or with any questions or concerns. Compliance is encouraged with any medications and follow up testing that is ordered. It is a privilege to be allowed the opportunity to participate in? your urological care.? Again, if you have any questions or concerns If you have any questions or concerns please do not hesitate to contact me. The office is [phone]. This note is constructed using voice recognition software. While every effort has been made to ensure accuracy home performance consultant errors may have been included. Yours sincerely, JENNIFER Gasca Coding Level of Care Code Est Pt Level 3 (97629) Complex EM visit Add On G2211 Diagnoses Urinary urgency R39.15 Nocturia R35.1 Urge incontinence N39.41 CPT Codes Post Residual Void - PVR CPT Code: 68557-Uqma Void Residual by ultrasound ([id number])
== END 2025-02-06 13:00 | disposition home or self-care (01) ==
LOC: HO.HUSH 11:23
PROVIDERS: PCP Internal Medicine; Visit Provider Nurse Practitioner Family
DX: R39.15 Urgency of urination (principal); R35.1 Nocturia; N39.41 Urge incontinence; Z13.9 Encounter for screening, unspecified
CPT/HCPCS: 99213; G2211

== ENCOUNTER → 2025-02-06 11:22 | Outpatient (BNVA) | payer MEDICARE, SELFPAY | PROVIDERS: PCP Internal Medicine; Visit Provider Nurse Practitioner Family | DX: N39.41 Urge incontinence (principal); R35.1 Nocturia; Z13.9 Encounter for screening, unspecified | CPT/HCPCS: 51798; 81003; 99212 ==

== ENCOUNTER 2025-02-20 14:10 | Outpatient (AMB) | payer MEDICARE, SELFPAY ==
--- NOTE | 2025-02-20 14:14 | A.OFFPC_ITS ---
Vital Signs 02/20/25 14:15 Height 5 ft 1 in BMI Reason not done Patient refused/unable BP 122/84 Blood Pressure Location Lt brachial Position Sitting Pulse 81 Pulse Source Pulse Oximeter Temp 97.0 F Temp Source Temporal Artery Scan Pulse Oximetry (%) 97 Oxygen Delivery Method Room Air Intake Visit Reasons: pain on her right arm Accompanied by: Spouse Allergies No Known Allergies Allergy (Verified 02/20/25 14:17) Medication List - Last Reconciled 02/20/25 by Yodit Neff MD atenolol 25 mg PO DAILY fenofibrate 160 mg PO DAILY 90 days [Left KNEE BRACE As directed] lorazepam 0.75 mg (1.5 x 0.5 mg) PO DAILY tmehliax-dju-PV-lycopen-lutein 0.4 mg-300 mcg- 250 mcg (Centrum Silver) 1 tab PO DAILY [QUAD CANE As directed] [rollator with seat As directed] simvastatin 10 mg PO BEDTIME solifenacin (Vesicare) 5 mg PO BID 90 days walker Folding front wheeled walker Tobacco use date assessed: 02/20/25 Fall risk assessment: No Falls in past year Last assessed Fall Risk: 02/20/25 Dental Screening Dental Screen Date: 02/20/25 Did you have a dental visit in the last 12 months?: No Did you have a dental problem in the last 6 months where you did not have access to dental care?: No Was dental information given to patient?: Patient has dentist [facility] Medical History Knee osteoarthritis Colonoscopy refused Arthritis of left knee Preop exam for internal medicine Right knee pain Arthritis of right knee Colon cancer screening Frequency of micturition Obesity Hypercholesterolemia Hypertension Surgical History Hx of right knee surgery (~07/26/23) Hx of lumpectomy History of breast lump/mass excision History of laparoscopic cholecystectomy History of umbilical hernia repair History of appendectomy Family History Father Stomach cancer Mother No problems noted. Social History Household Members: Spouse Housing: House Are you a primary day care center director to a significant other at home: No Do you presently have visiting nurse or other home services: No Alcohol intake: current Alcohol intake frequency: does not drink Comment: glass of wine once 1-2 year a year Patient Tobacco Use Status: Former Tobacco user Tobacco use type: Cigarette Years Smoked: quit 1979 e-Cigarette/Vaping Use: Never Used Second Hand Smoke Exposure: No service: No Current occupational status: retired Current occupation: rt hand Cognitive needs: No Hearing needs: No Vision needs: Yes Questionnaire PHQ-9 Over the last 2 weeks, how often have you been bothered by any of the following problems? 1. Little interest or pleasure in doing things: not at all 2. Feeling down, depressed, or hopeless: not at all 3. Trouble falling or staying asleep, or sleeping too much: not at all 4. Feeling tired or having little energy: not at all 5. Poor appetite or overeating: not at all 6. Feeling bad about yourself - or that you are a failure or have let yourself or your family down: not at all 7. Trouble concentrating on things, such as reading the newspaper or watching television: not at all 8. Moving or speaking so slowly that other people could have noticed. Or the opposite - being so fidgety or restless that you have been moving around a lot more than usual: not at all 9. Thoughts that you would be better off or of hurting yourself in some way: not at all Total score: 0 Depression Screening Interpretation: Negative Depression Screening Done: Yes Source: Developed by Drs. Regis Holliday, Cristela Velásquez, Solomon Villalobos and colleagues, with an educational jung from [employer]. Thrive Questionnaire Date Thrive assessed: 09/01/24 I am a: Patient What is your living situation today?: I have a steady place to live Within the past 12 months, did the food you bought not last and you didn't have the money to get more?: Never true Within the past 12 months, did you worry whether your food would run out before you got money to buy more?: Never true Do you have trouble paying for medicines?: No Do you have trouble getting transportation to medical appointments?: No Do you have trouble paying your heating and electricity bill?: No Do you have trouble taking care of your child, family member or friend?: No Do you have trouble with day-to-day activities such as bathing, preparing meals, shopping, managing finances, etc.?: No Are you currently unemployed and looking for a job?: No Are you interested in more education?: No Please select the resources that you would like help with: None Currently or been in a relationship where the following occur: No concerns reported THRIVE Score: 0 AUDIT C Alcohol Use Questionnaire (AUDIT-C) 1. How often do you have a drink containing alcohol?: Never 3. How often do you have six or more drinks on one occasion?: Never Total Score: 0 JACKIE-7 AMB Questionnaire JACKIE-7 Date JACKIE - 7 assessed: 06/22/24 Feeling nervous, anxious, or on edge: 0 = Not at all Not being able to stop or control worryin = Not at all Worrying too much about different things: 0 = Not at all Trouble relaxin = Not at all Being so restless that it is hard to sit still: 0 = Not at all Becoming easily annoyed or irritable: 0 = Not at all Feeling afraid as if something awful might happen: 0 = Not at all Total JACKIE-7 score (0-4 normal; 5-9 mild; 10-14 moderate; 15-21 severe): 0 Source: Developed by Drs. Regis Holliday, Cristela Velásquez, Solomon Villalobos and colleagues, with an educational jung from [employer]. Physical exam (Primary Care) Vital Signs: Last Vital Signs Temp 97.0 F 02/20/25 14:15 Pulse 81 02/20/25 14:15 BP 122/84 02/20/25 14:15 Pulse Ox 97 02/20/25 14:15 Oxygen Delivery Method Room Air 02/20/25 14:15 Tobacco/Smoking Status: Tobacco use Status Tobacco use date assessed 02/20/25 02/20/25 14:19 Patient Tobacco Use Status Former Tobacco user 02/20/25 14:15 Tobacco use type Cigarette 02/20/25 14:15 e-Cigarette/Vaping Use Never Used 02/20/25 14:15 PHQ-9: PHQ-9 Score PHQ-9: Total score 0 02/20/25 14:30 Depression Screening Interpretation: Negative Thrive Assessment: Date of Thrive Assessment Date Thrive assessed 09/01/24 02/20/25 14:15 Currently or been in a relationship where the following occur: No concerns reported Const General: alert; No acute distress Eyes Conjunctivae: conjunctivae normal Resp Auscultation: clear to auscultation bilaterally Cardio Rate: regular rate Rhythm: regular rhythm GI Inspection: Yes normal to inspection Extrem General: Yes normal to inspection and No edema Coding Level of Care Code Est Pt Level 4 (15818) Complex EM visit Add On G2211 Diagnoses Primary hypertension I10 Hypertension type: primary hypertension Hypercholesterolemia E78.00 Impaired glucose tolerance R73.02 Morbid obesity E66.01 Generalized anxiety disorder F41.1 Status post total right knee replacement Z96.651 Primary osteoarthritis of left knee M17.12 Osteoarthritis type: primary Overactive bladder N32.81 Bicipital tendinitis of right shoulder M75.21 Assessment & Plan Assessment & Plan (1) Hypertension: Code(s): I10 - Essential (primary) hypertension Category: Medical Qualifiers: Hypertension type: primary hypertension Qualified Code(s): I10 - Essential (primary) hypertension Plan: Continue with blood pressure medication. Decrease salt intake and exercise on atenolol 25 mg once a day (2) Hypercholesterolemia: Code(s): E78.00 - Pure hypercholesterolemia, unspecified Category: Medical Plan: Avoid fried foods, chicken skin, eggs, butter margarine, pastries and meat. Be it pork or beef they have a lot of cholesterol LDL goal of less than 130 and triglyceride of less than 150 on simvastatin 10 mg at bedtime (3) Impaired glucose tolerance: Code(s): R73.02 - Impaired glucose tolerance (oral) Category: Medical Plan: Decrease the amount of carbohydrate intake, pasta, bread, rice and potatoes are all sugar and that is aside from all the sweet stuff, remember that fruits are good but they are Sweet also. (4) Morbid obesity: Code(s): E66.01 - Morbid (severe) obesity due to excess calories Category: Medical Plan: Diet and exercise (5) Generalized anxiety disorder: Comment: Decline any referral for counseling Code(s): F41.1 - Generalized anxiety disorder Category: Medical Plan: Continue with present medication (6) Status post total right knee replacement: Onset Date: ~07/26/23 Comment: Dr. Weir 07/2023 Code(s): Z96.651 - Presence of right artificial knee joint Category: Surgical Plan: Patient has seen Orthopedics. With the pain was advised pain management (7) Osteoarthritis of left knee: Code(s): M17.12 - Unilateral primary osteoarthritis, left knee Category: Medical Qualifiers: Osteoarthritis type: primary Qualified Code(s): M17.12 - Unilateral primary osteoarthritis, left knee (8) Overactive bladder: Code(s): N32.81 - Overactive bladder Category: Medical Plan: Patient has been seen by Urology and on VESIcare (9) Bicipital tendinitis of right shoulder: Code(s): M75.21 - Bicipital tendinitis, right shoulder Category: Medical Plan History of Present Illness The patient is a 75-year-old morbidly obese female presenting for a follow-up and evaluation of new right arm pain. Her past medical history is significant for hypertension, hypercholesterolemia, impaired fasting glucose, and generalized anxiety disorder. She is status post a right knee replacement in July 2023 and also has osteoarthritis of the left knee. The patient reports the onset of right arm pain two weeks ago, which she noticed upon waking. The pain extends from her shoulder down her arm, is worse with movements such as reaching back, and is particularly severe in the morning. The patient uses a cane with her right arm. She has been self-treating with heat and ice, noting that heat is more beneficial. She follows with orthopedics for her knee and was advised to see pain management, for which she has an appointment scheduled. An x-ray of the right knee in January was unremarkable for the arthroplasty. She also follows with urology for an overactive bladder, for which she takes Vesicare. A recent kidney ultrasound showed no post-void residual. Her last blood work was in August, which showed a normal blood count, electrolytes, and renal function. Her blood sugar at that time was 118, her hemoglobin A1c has been normal, and her triglycerides were mildly elevated at 170. Her mammogram is up to date, but her bone density scan is due. Health Maintenance - Mammogram: Patient is up to date. - Bone Density Scan: Screening is due. - Weight management: The patient weighs 245 lbs. - Weight loss medication: A discussion was held regarding GLP-1 agonists like Mounjaro, including their cost, mechanism of action, and benefits such as reduced risk of heart attacks, cancer, and resolution of sleep apnea. - Prediabetes management: Recommended plan includes diet and exercise. - Cholesterol management: The treatment goal is an LDL less than 130 and triglycerides less than 150. Social History - Functional Status: The patient uses a cane with her right hand for ambulation. - Exercise: The patient is advised to perform gentle exercises for her shoulder. - Weight: Her current weight is 245 pounds. Review of Systems - Musculoskeletal: Reports right arm pain for two weeks, extending from the shoulder down the arm, worse in the morning and with movement. - Reports her right knee is doing well. - Reports feeling of numbness in the arm when pain subsides. - Denies a fall. - Respiratory: Reports a cough. - Genitourinary: Reports an overactive bladder. - Psychiatric: Reports a history of generalized anxiety disorder. Physical Exam - Vital Signs: Blood pressure is noted to be good. - Musculoskeletal: On examination of the right upper extremity, there is tendern ess to palpation over the bicipital tendon. - There is no tenderness noted at the elbow or the anterior shoulder. Results - Labs (from August): - CBC: Normal, no anemia. - BMP: Normal electrolytes and renal function. - Glucose: 118. - Hemoglobin A1c: Normal. - LFTs: Normal. - Triglycerides: 170 (mildly elevated). - Imaging: - Kidney Ultrasound: No post-void residual. - Right Knee X-ray (January): Unremarkable right knee arthroplasty. Plan Patient was informed and verbally consented to the use of an ambient scribe for clinic note documentation during this visit. 1. Bicipital Tendinitis, Right The patient's right arm pain is diagnosed as bicipital tendinitis, likely resulting from the use of a cane in her right hand. The plan includes local heat application, gentle exercises, and consideration of topical analgesics like Salonpas patches or Aspercreme. The patient was advised to cancel her upcoming pain management appointment for a nerve block, as she expressed fear and the ou tcomes for such injections can be variable. Tylenol has been ineffective, and NSAIDs like Advil are avoided due to potential stomach and kidney side effects. 2. Morbid Obesity The patient's weight of 245 lbs is a significant contributing factor to her musculoskeletal issues. A discussion was had regarding weight loss options, including medications like Mounjaro. The benefits of weight loss, such as decreased risk of heart attack, cancer, and improvement in sleep apnea, were reviewed. 3. Hypertension The patient's blood pressure is well-controlled. She will continue her current regimen of atenolol 25 mg once daily. 4. Hypercholesterolemia The patient has mildly elevated triglycerides. The plan is to continue simvastatin 10 mg at bedtime with goals of an LDL less than 130 and triglycerides less than 150. 5. Impaired Fasting Glucose The patient's last blood sugar was 118, with a normal A1c. The management plan includes continued diet and exercise. 6. Overactive Bladder The patient is followed by urology and will continue on Vesicare. We discussed the high cost of the medication and the potential for savings with GoodRx. Discussion Notes I diagnosed the patient's right arm pain as bicipital tendinitis and explained that it is likely from overuse due to her reliance on a cane with that arm. We discussed management options including local heat, gentle exercise, and topical analgesics like Salonpas. I advised her to cancel the scheduled pain management appointment for injections, as she was apprehensive and I noted that I do not often see good results from them for this condition. We extensively discussed her weight as a contributing factor to her musculoskeletal issues. I reviewed the benefits of weight loss and the potential use of GLP-1 agonist medications like Mounjaro, including the mechanism of action and associated costs. I confirmed her blood pressure and cholesterol are well-managed on her current medications, and we will continue the present course of therapy. I reinforced the plan for diet and exercise for her prediabetes. The patient was informed her mammogram is up to date but a bone density scan is now due. Patient Instructions - For your right arm pain, apply heat with a heating pad or use heat patches like Salonpas or Aspercreme. - Perform gentle exercises with your arm, but avoid movements that cause sign ificant pain. - Please call and cancel your appointment with the pain management clinic. - Continue taking your atenolol for blood pressure and simvastatin for cholesterol as prescribed. - Continue with your diet and exercise plan to help with your blood sugar and weight. - Ask your pharmacy about using a GoodRx coupon for your Vesicare prescription to lower the cost. - Your mammogram is up to date. You are due for a bone density scan. - Follow up in the office next year for your annual visit.
[2025-02-20 14:15] VITALS: BP 122/84; PULSE 81; TEMP 36.1; O2SAT 97
--- OUTSIDE RECORDS SUMMARY | 2025-02-20 17:11 | XMS_ITS | Patient Health Record ---
Author Organization [facility] Address [address] [place] [address] Care Team Providers Care Gas Worker Name Role Phone Yodit Neff Primary Care Provider Mitchel Mclain Unavailable [phone] Reason For Referral No Information Medications Medication [...] Status W/U Status Risk Notes Problem Onychomycosis (743061427) Onychomycosis (110.1) Active confirmed Problem Pain in limb (20231506) Pain in Limb (729.5) Active confirmed Problem Achilles bursitis (626720029) Achilles Tendonitis Bursitis (726.71) Active confirmed Problem Calcaneal spur (65586453) Calcaneal spur (726.73) Active confirmed Problem Ingrowing nail (243015166) Ingrowing Nail (703.0) Active confirmed Plan Of Treatment Pending Test Test Name Order Date X ray : Foot, right 3V 09/09/2012 01116-Rodovsmm Plate 12/30/2010 35662-Blsotsdy Plate Each Additional Insurance Providers Payer Name Payer Address Payer Phone Subscriber Number Group Number Insured Name Patient Relationship to Insured Coverage Start Date Coverage End Date [facility] [address] [place] [address] [id number] Danilo Bartlett Spouse - patient is the spouse of the insured Medical (General) History Medical History History ICD Code hypertension hypercholesterolemia measles chicken pox
--- OUTSIDE RECORDS SUMMARY | 2025-02-20 17:11 | XMS_ITS | Clinical Summary ---
Author Organization [facility] Address [address] [place] [id number] Phone Care Team Providers Care Motor Vehicles Supervisor Name Role Phone Yodit Neff MD Primary Care Provider [phone] Surgical History Surgery Date Site/Laterality Comments STEREOTACTIC [...] Signed Date: 05/05/2024 16:56 ET Workstation ID: [id number] Transcribed By: Self Edit Transcribed Date: 05/05/2024 16:44 ET Narrative 05/05/2024 4:56 PM EST EXAM: SCREENING MAMMOGRAPHY, BILATERAL HISTORY: SCREENING. Scar upper areolar margin right breast. COMPARISON: 05/03/2023, 04/17/2022, 03/30/2021, 02/03/2020 TECHNIQUE: Synthesized CC and MLO projections of each breast. Tomosynthesis of each breast in the CC and MLO projections. ADDITIONAL IMAGING: None Computer-aided detection was employed with the Resonant Vibes AI 3-D. TISSUE DENSITY: The breasts are [...] None Computer-aided detection was employed with the Resonant Vibes AI 3-D. TISSUE DENSITY: The breasts are [...] Signed Date: 05/05/2024 16:56 ET Workstation ID: [id number] Transcribed By: Self Edit Transcribed Date: 05/05/2024 16:44 ET us Self Referral Sppl IMG BI PROCEDURES Final Resul t from Last 3 Months or Most Recently Relevant to Health Maintenance Insurance MEDICARE [facility] Care Teams Motor Vehicles Supervisor Relationship Specialty Start Date End Date Yodit Neff MD [address] [place] [address] [address] [facility] [place] [address] PCP - General Internal Medicine 05/05/24
== END 2025-02-20 15:31 | disposition home or self-care (01) ==
LOC: HO.HMCH 14:11
PROVIDERS: PCP Internal Medicine; Visit Provider Internal Medicine
DX: I10 Essential (primary) hypertension (principal); E78.00 Pure hypercholesterolemia, unspecified; E66.01 Morbid (severe) obesity due to excess calories; R73.02 Impaired glucose tolerance (oral); F41.1 Generalized anxiety disorder; Z96.651 Presence of right artificial knee joint; M17.12 Unilateral primary osteoarthritis, left knee; N32.81 Overactive bladder; M75.21 Bicipital tendinitis, right shoulder

== ENCOUNTER → 2025-02-20 14:10 | Outpatient (BNVA) | payer MEDICARE, SELFPAY | PROVIDERS: PCP Internal Medicine; Visit Provider Internal Medicine | DX: I10 Essential (primary) hypertension (principal); E78.00 Pure hypercholesterolemia, unspecified; R73.02 Impaired glucose tolerance (oral); F41.1 Generalized anxiety disorder; M17.12 Unilateral primary osteoarthritis, left knee; N32.81 Overactive bladder; M75.21 Bicipital tendinitis, right shoulder; E66.01 Morbid (severe) obesity due to excess calories; Z96.651 Presence of right artificial knee joint; Z71.3 Dietary counseling and surveillance | CPT/HCPCS: 99212 ==

== ENCOUNTER 2025-03-22 11:09 | Outpatient (AMB) | payer MEDICARE, SELFPAY ==
--- NOTE | 2025-03-22 11:13 | A.OFFVIS_ITS ---
Vital Signs 03/22/25 11:15 Height 5 ft 1 in Weight 245 lb BMI 46.3 Intake Visit Reasons: Inj-left knee injection, last inj 11/14/24 Intake Note: Therese 75 yr old female presents with complaints of left knee pain. She describes her pain as sharp in nature. She has had cortisone injections in the past which gave her fairly good relief. She has also tried Tylenol and anti-inflammatory medicines which gave her minimal relief. She wishes to hold off on left total knee replacement surgery if at all possible. Allergies No Known Allergies Allergy (Verified 03/22/25 11:15) Medication List - Last Reconciled 03/22/25 by Joni Weir MD atenolol 25 mg PO DAILY fenofibrate 160 mg PO DAILY 90 days [Left KNEE BRACE As directed] lorazepam 0.75 mg (1.5 x 0.5 mg) PO DAILY jgbibgrv-tmy-BE-lycopen-lutein 0.4 mg-300 mcg- 250 mcg (Centrum Silver) 1 tab PO DAILY [QUAD CANE As directed] [rollator with seat As directed] simvastatin 10 mg PO BEDTIME solifenacin (Vesicare) 5 mg PO BID 90 days walker Folding front wheeled walker [facility] Medical History Knee osteoarthritis Colonoscopy refused Arthritis of left knee Preop exam for internal medicine Right knee pain Arthritis of right knee Colon cancer screening Frequency of micturition Obesity Hypercholesterolemia Hypertension Surgical History Hx of right knee surgery (~07/26/23) Hx of lumpectomy History of breast lump/mass excision History of laparoscopic cholecystectomy History of umbilical hernia repair History of appendectomy Family History Father Stomach cancer Mother No problems noted. Social History Household Members: Spouse Housing: House Are you a primary student career development specialist to a significant other at home: No Do you presently have visiting nurse or other home services: No Alcohol intake: current Alcohol intake frequency: does not drink Comment: glass of wine once 1-2 year a year Patient Tobacco Use Status: Former Tobacco user Tobacco use type: Cigarette Years Smoked: quit 1979 e-Cigarette/Vaping Use: Never Used Second Hand Smoke Exposure: No service: No Current occupational status: retired Current occupation: rt hand Cognitive needs: No Hearing needs: No Vision needs: Yes Physical Exam Vital Signs: BMI result Body Mass Index 46.3 Extrem Other: Left knee examination shows a minimal effusion, palpable crepitus with range of motion, pain with range of motion, no instability Office Procedures AMB Joint Injection/Aspiration Joint Injection/Aspiration Primary Site: Left Knee Prep: site was prepped using aseptic technique Injected: 40 mg of, DepoMedrol, with 3 mL of and 1% plain Lidocaine Procedure: The patient tolerated the procedure well Coding - Large joint Procedure code (CPT) selection complete Results Reviewed Results Reviewed: X-rays of the patient's left knee taken previously show joint space narrowing, subchondral sclerosis, no acute bony abnormalities Assessment & Plan Assessment & Plan (1) Osteoarthritis of left knee: Code(s): M17.12 - Unilateral primary osteoarthritis, left knee Category: Medical Qualifiers: Osteoarthritis type: primary Qualified Code(s): M17.12 - Unilateral primary osteoarthritis, left knee Plan Therese presents with left knee pain due to degenerative joint disease. The risks and benefits of a left knee cortisone injection were discussed at length with the patient. The patient wished to proceed. She tolerated the injection well. She will continue with her home exercise program. She will contact me prior to her follow-up appointment in 3 months should any questions or concerns arise. Feel free to call me at any time should questions regarding her orthopedic management arise. I spent 20 minutes in reviewing the patient's records and imaging studies, seeing the patient and documenting in the medical record. Orders: Orders AMB Joint Injection/Aspiration Today M17.12 - Unilateral primary osteoarthritis, left knee Coding Level of Care Code Est Pt Level 3 (11272) Complex visit Add On G2211 Diagnoses Primary osteoarthritis of left knee M17.12 Osteoarthritis type: primary CPT Codes Coding - Large joint: 17829 - Large joint ([id number])
[2025-03-22 11:15] VITALS: BMI 46.3
== END 2025-03-22 11:36 | disposition home or self-care (01) ==
LOC: HO.HOS 11:10
PROVIDERS: PCP Internal Medicine; Visit Provider Orthopaedic Surgery
DX: M17.12 Unilateral primary osteoarthritis, left knee (principal)
CPT/HCPCS: 20610; 99213

== ENCOUNTER → 2025-03-22 11:09 | Outpatient (BNVA) | payer MEDICARE, SELFPAY | PROVIDERS: PCP Internal Medicine; Visit Provider Orthopaedic Surgery | DX: M17.12 Unilateral primary osteoarthritis, left knee (principal) | CPT/HCPCS: 20610; 99212; J1010; J2003 ==